=== PATIENT | male | born 1945 | race Caucasian/White ===

== ENCOUNTER 2017-02-15 00:38 | Inpatient (IN) | payer OTHER ==
[~2017-02-15] VITALS: Ht 167.6 cm; Wt 78.6 kg
[2017-02-15] VITALS (17 sets, daily range): BP systolic 122–145; BP diastolic 64–78; PULSE 68–79; RESP 17–21; TEMP 98; Ht 167.6 cm; Wt 78.6 kg
[2017-02-15] MEDS ORDERED: ASPIRIN 325 MG TAB PO STA (00:43)
[2017-02-15] MEDS ORDERED: ALBUTEROL 0.083% (NEB) 2.5 MG/3 ML AMP HHN STA (00:43)
[2017-02-15] MEDS ORDERED: IPRATROPIUM (NEB) 0.5 MG/2.5 ML AMP HHN ONE (01:00)
[2017-02-15 01:01] LABS: AADO2 Arterial 103.2 mmHg (7.0-24.0); Arterial Base Excess 6.5 mmol/L (-3.0-3); Arterial COHb 0.1 % (0.0-3.0); Arterial Fraction of Oxyhgb 87.7 % (93.0-99.0); Arterial HCO3 34.2 mmol/L (22.0-26.0); Arterial MetHb 0.3 % (0.0-1.5); MODE NASAL CANNULA
--- NOTE | 2017-02-15 01:38 | RADRPT ---
PROCEDURE: XR Chest. CLINICAL INDICATION: Shortness of breath. TECHNIQUE: Single frontal chest x-ray. COMPARISON: None. FINDINGS: Right internal jugular central venous line is present with the tip in the region of the junction of SVC and right atrium. There there is near-complete opacification of the right hemithorax with media stinal shift to the right, compatible with component of pleural effusion and atelectasis. Infiltrat e cannot be excluded. There is small layering left pleural effusion with basilar atelectasis. Ther e is no CHF. There is no pneumothorax. The osseous structures are unremarkable. IMPRESSION: 1. Near complete opacification of the right hemithorax with mediastinal shift compatible with volum e loss. Appearance is consistent with pleural fluid a and atelectasis. Component of infiltrate can not be excluded. Considerations include mucous plugging. 2. Small left pleural effusion with basilar atelectasis. 3. Right internal jugular central line with tip in the region of the SVC and right atrium. RPTAT: HMVK .Jacobo Tobias MD, Date Time Electronically viewed and signed by .Jacobo Tobias MD, on 02/15/2017 01:37 .K/
[2017-02-15] MEDS ORDERED: DEXTROSE 50% 50 ML SYRINGE ONE (01:41)
[2017-02-15 01:51] LABS: ADD SCAN DIFF NO
[2017-02-15 01:56] LABS: BASOPHILS % 0.6 % (0.0-2.0); EOSINOPHILS # 0.1 10^3/ul (0.0-0.5); EOSINOPHILS % 1.8 % (0.0-7.0); HEMATOCRIT 29.2 % (42.0-52.0); HEMOGLOBIN 8.7 g/dl (14.0-18.0); LYMPHOCYTES # 1.2 10^3/ul (0.8-2.9); LYMPHOCYTES % 22.9 % (15.0-51.0); MEAN CORPUSCULAR HEMOGLOBIN 30.1 pg (29.0-33.0); MEAN CORPUSCULAR HGB CONC 29.8 g/dl (32.0-37.0); MEAN PLATELET VOLUME 9.3 fl (7.4-10.4); MONOCYTE # 0.5 10^3/ul (0.3-0.9); MONOCYTES % 10.5 % (0.0-11.0); NEUTROPHIL # 3.2 10^3/ul (1.6-7.5); NEUTROPHILS % 62.2 % (39.0-77.0); PLATELET COUNT 236 10^3/UL (140-415); RED BLOOD COUNT 2.89 10^6/ul (4.70-6.10); RED CELL DISTRIBUTION WIDTH 14.4 % (11.5-14.5); WHITE BLOOD COUNT 5.1 10^3/ul (4.8-10.8)
[2017-02-15] MEDS ORDERED: DEXTROSE 50% 50 ML SYRINGE IV ONE ×2 (02:00→05:00)
[2017-02-15] MEDS ORDERED: METOPROLOL 5 MG INJ IV ONE (02:00)
[2017-02-15 02:15] LABS: INR 1.08; PT RATIO 1.1
[2017-02-15 02:37] LABS: ALBUMIN 2.6 g/dl (3.3-4.9)
[2017-02-15 02:38] LABS: POTASSIUM 4.1 mmol/L (3.5-5.1)
[2017-02-15 02:40] LABS: BILIRUBIN,INDIRECT 0.1 mg/dl (0-1.1); BILIRUBIN,TOTAL 0.1 mg/dl (0.2-1.3); CREATININE 1.95 mg/dl (0.61-1.24)
[2017-02-15 02:41] LABS: ALBUMIN/GLOBULIN RATIO 0.66; TOTAL PROTEIN 6.5 g/dl (6.1-8.1)
[2017-02-15 02:52] LABS: TROPONIN-I 0.021 ng/ml (0.00-0.12)
[2017-02-15] MEDS ORDERED: METHYLPREDNISOLONE 125 MG INJ IV ONE (03:00)
[2017-02-15] MEDS ORDERED: DIPHENHYDRAMINE 50 MG CAP PO ONE (04:30)
[2017-02-15] MEDS ORDERED: SOD CHLORIDE 0.9% 500 ML IV ONE (04:30)
[2017-02-15] MEDS ORDERED: ONDANSETRON 4 MG INJ IV PRN ×2 (05:00→09:30)
[2017-02-15] MEDS ORDERED: ACETAMINOPHEN 325 MG TAB PO PRN ×2 (05:00→09:30)
--- NOTE | 2017-02-15 05:02 | ERA ---
ER Documentation Chief Complaint Date/Time DATE: 02/15/17 TIME: 04:46 Chief Complaint Per EMS pt sob at facility in 88% on bipap HPI This 71-year-old male is brought in by paramedics after being found tachycardic short of breath and satting 88% on room air home. He has a history of COPD as well as A. fib with RVR. He denies any chest pain. Denies fever and chills. He is accompanied by his son. Has been feeling increasingly short of breath for a few days now. Patient is currently a poor historian and isn't really answering some questions. EVE Says she negative according to patient and to the best of son's knowledge however patient appears to be unreliable at this time. Allergies Allergies: Coded Allergies: Unknown: Unable to obtain (Unverified , 02/15/17) PMhx/Soc Medical and Surgical Hx: pt denies Surgical Hx History of Surgery: No Anesthesia Reaction: No Hx Respiratory Disorders: Yes (Resp failure) Hx Cardiac Disorders: Yes (a-fib, htn) Hx Miscellaneous Medical Probl: Yes (GI bleed, DM II, Dialysis, c-diff, CKD, heel ulcer) Hx Alcohol Use: No Hx Substance Use: No Hx Tobacco Use: No Smoking Status: Former smoker Physical Exam Vitals Vital Signs Date Time Temp Pulse Resp B/P Pulse Ox O2 Delivery O2 Flow Rate FiO2 02/15/17 03:11 98.0 89 13 104/71 97 Nasal Cannula 4.0 02/15/17 02:04 97.9 95 16 114/66 94 Nasal Cannula 4.0 02/15/17 01:14 4.0 02/15/17 01:13 110 22 94 Nasal Cannula 4.0 02/15/17 00:40 Nasal Cannula 4.0 02/15/17 00:40 Nasal Cannula 4 02/15/17 00:40 97.1 105 24 139/90 92 Physical Exam Const: [] Mild to moderate distress, tachypnea Head: Atraumatic Eyes: Normal Conjunctiva ENT: Normal External Ears, Nose and Mouth. Neck: Full range of motion..~ No meningismus. Resp: Decreased bibasilar breath sounds with rhonchorous sounds as well as expiratory wheezes., Mild tachypnea, mild accessory muscle use of abdominal muscles Cardio: Irregularly irregular tachycardia, no murmurs Abd: Soft, non tender, non distended. Normal bowel sounds Skin: No petechiae or rashes, Back: No midline or flank tenderness Ext: No cyanosis, or edema Neur: Awake and alert, knows his name, answers some questions, unable to cooperate full neurological exam currently. Result Diagram: 02/15/17 0132 02/15/17 0132 Results 24 hrs Laboratory Tests Test 02/15/17 00:43 02/15/17 01:32 02/15/17 01:39 02/15/17 02:02 Blood Gas Specimen Source Blood arterial Arterial Blood Date Drawn 02/15/2017 12:55:27 AM Arterial Blood pH (Temp corrected) 7.319 Arterial Blood pCO2 (Temp correct) 68.0mmhg Arterial Blood pO2 (Temp corrected) 52.7mmHG Arterial Blood HCO3 34.2mmol/L Arterial Blood Base Excess 6.5mmol/L Arterial Blood Oxygen Saturation 88.1mmHG Eduard Test N/A Arterial Blood Gas Puncture Site Right Brachial Arterial Blood Carboxyhemoglobin 0.1% Arterial Blood Methemoglobin 0.3% Blood Gas A-a O2 Differential 103.2mmHg Oxyhemoglobin Percent 87.7% Total Hemoglobin 10.0g/dl Blood Gas Temperature 37.0C Blood Gas Modality NASAL CANNULA FiO2 33.0% Blood Gas Critical Value Read Back Chu ROSALES DO Blood Gas Notified Whom MG Blood Gas Notified Time 02/15/2017 1:01:14 AM White Blood Count 5.110^3/ul Red Blood Count 2.8910^6/ul Hemoglobin 8.7g/dl Hematocrit 29.2% Mean Corpuscular Volume 101.0fl Mean Corpuscular Hemoglobin 30.1pg Mean Corpuscular Hemoglobin Concent 29.8g/dl Red Cell Distribution Width 14.4% Platelet Count 33473^3/UL Mean Platelet Volume 9.3fl Neutrophils % 62.2% Lymphocytes % 22.9% Monocytes % 10.5% Eosinophils % 1.8% Basophils % 0.6% Nucleated Red Blood Cells % 0.0/100WBC Neutrophils # 3.210^3/ul Lymphocytes # 1.210^3/ul Monocytes # 0.510^3/ul Eosinophils # 0.110^3/ul Basophils # 0.010^3/ul Nucleated Red Blood Cells # 0.010^3/ul Prothrombin Time 14.0Sec Prothrombin Time Ratio 1.1 INR International Normalized Ratio 1.08 Activated Partial Thromboplast Time 31.0Sec Sodium Level 139mmol/L Potassium Level 4.1mmol/L Chloride Level 98mmol/L Carbon Dioxide Level 34mmol/L Anion Gap 11 Blood Urea Nitrogen 11mg/dl Creatinine 1.95mg/dl Glucose Level 31mg/dl Calcium Level 8.0mg/dl Total Bilirubin 0.1mg/dl Direct Bilirubin 0.00mg/dl Indirect Bilirubin 0.1mg/dl Aspartate Amino Transf (AST/SGOT) 36IU/L Alanine Aminotransferase (ALT/SGPT) 35IU/L Alkaline Phosphatase 291IU/L Troponin I 0.021ng/ml B-Type Natriuretic Peptide 6080PG/ML Total Protein 6.5g/dl Albumin 2.6g/dl Globulin 3.90g/dl Albumin/Globulin Ratio 0.66 Bedside Glucose 31mg/dL 149mg/dL Test 02/15/17 03:02 02/15/17 04:02 Bedside Glucose 100mg/dL 89mg/dL Current Medications Medications (Trade) Dose Ordered Sig/Pb Route PRN Reason Start Time Stop Time Status Last Admin Dose Admin Aspirin (Aspirin) 325 mg ONCE STAT PO 02/15/17 00:43 02/15/17 00:46 DC 02/15/17 01:52 Albuterol (Proventil 0.083% (Neb)) 10 mg ONCE STAT HHN 02/15/17 00:43 02/15/17 00:46 DC 02/15/17 01:12 Ipratropium [place] (Atrovent 0.02% (Neb)) 1 mg ONCE ONCE HHN 02/15/17 01:00 02/15/17 01:01 DC 02/15/17 01:13 Dextrose (D50w Syringe) 50 ml ONCE ONCE IV 02/15/17 02:00 02/15/17 02:01 DC 02/15/17 01:44 Dextrose (D50w Syringe) 50 ml STK-MED ONCE .ROUTE 02/15/17 01:41 02/15/17 01:42 DC Metoprolol Tartrate (Lopressor) 5 mg ONCE ONCE IV 02/15/17 02:00 02/15/17 02:01 DC 02/15/17 01:58 Methylprednisolone Sodium Succinate (Solu-Medrol) 125 mg ONCE ONCE IV 02/15/17 03:00 02/15/17 03:01 DC 02/15/17 03:11 Diphenhydramine HCl 50 mg 50 mg ONCE ONCE PO 02/15/17 04:30 02/15/17 04:31 DC Sodium Chloride (NS) 500 ml @ 500 mls/hr Q1H ONCE IV 02/15/17 04:30 02/15/17 05:29 Ondansetron HCl (Zofran Inj) 4 mg ER BRIDGE PRN IV NAUSEA AND/OR VOMITING 02/15/17 05:00 02/16/17 04:59 Acetaminophen (Tylenol Tab) 650 mg ER BRIDGE PRN PO MILD PAIN/FEVER 02/15/17 05:00 02/16/17 04:59 Procedures/MDM Hypoxic respiratory distress secondary to both COPD exacerbation as well as A. fib with RVR and congestive heart failure. Patient was also suffering from hypoglycemia likely secondary to combination of insulin and sulfonylurea as patient is on glimepiride. Was given amp of D50 which raised his sugar. Sugar began to drop slightly again was given a ramp of D50. Sugar again we are performing frequent checks will starting him on a D5 infusion. Patient's mental status improved greatly and has normal neurological exam after treatment of hypoglycemia. Patient was given 5 of metoprolol for his RVR. He was given 10 and 1 nebulized breathing treatment. Blood gas shows significant low PaO2 as well as CO2 retention. Is given 125 mg of Solu-Medrol. Patient is currently rate controlled after metoprolol dose his respiratory rate is improving and he is stabilizing on 4 L of nasal cannula oxygen. CT of the lungs is pending to evaluate the right lung white out better. I spoke with who will be admitting the patient. EKG interpretation: A. fib with RVR rate of 111, left axis deviation, no ST-T wave changes concerning for acute ischemia. quality assurance monitor interpretation: Initial A. fib with RVR followed by a rate controlled A. fib without other arrhythmias Chest x-ray interpretation: Almost complete opacification of right lung, no apparent pneumothorax, unable to evaluate for pulmonary edema on the right side but does have signs of congestive heart failure on the left side, no acute fractures Critical care time 47 minutes: This includes treatment of hypoxic respiratory failure the patient was significantly hypoxemia, CO2 retention, treatment of A. fib with RVR with vasoactive medications metoprolol, consideration of invasive procedures, multiple visits to the patient's bedside to reassess status, chart review, discussion with admitting doctor and family. Does not include billable procedures Departure Diagnosis: Primary Impression: Atrial fibrillation with RVR Additional Impressions: COPD exacerbation Congestive heart failure Hypoglycemia secondary to sulfonylurea Macrocytic anemia Protein calorie malnutrition Renal insufficiency Condition: Serious CATHI ROSALES DO Feb 15, 2017 04:59
--- NOTE | 2017-02-15 06:40 | RADRPT ---
PROCEDURE: CT CHEST WITHOUT CONTRAST CLINICAL INDICATION: 71-year-old male with shortness of breath. TECHNIQUE: The study was performed utilizing a [employer] VCT 64-slice CT scanner. Direct axia l sections were obtained through the chest without the use of intravenous contrast material. Sagitt al and coronal re-formations were obtained. One or more of the following dose reduction techniques w ere utilized: automated exposure control, adjustment of the mA and/or kV according to patient's size or use of iterative reconstruction technique. The images were reviewed on a PACS workstation. CTD /vol = 14.8 mGy; Total Exam DLP = 583.6 mGy-cm. COMPARISON: Chest x-ray February 15, 2017. FINDINGS: There is a right internal jugular tunneled hemodialysis catheter with the tip in the right atrium. The aorta is mildly calcified but without aneurysmal dilatation. Mild diffuse coronary artery calcif ications are present. There are small lymph nodes seen within the mediastinum which are not patholo gic by size criteria. There is [id number] right pleural effusion extending to the lung apex wh ich may be loculated. There is collapse of the right lung with residual air bronchograms present. There is mediastinal shift to the right. There is moderate left pleural effusion with compressive a telectasis of the left lower lobe. There is no evidence for a pneumothorax. Mild degenerative cisneros es are present within the spine. Scans through the upper abdomen reveals that the upper liver is unremarkable. There is minimal free fluid surrounding the right lobe of the liver. The adrenal glands have a normal appearance. The upp er kidneys are without evidence for obstruction. IMPRESSION: 1. Right internal jugular tunneled hemodialysis catheter the tip in the right atrium. 2. [id number] right pleural effusion extending to the right lung apex which may be loculated. 3. Collapsed right lung with residual air bronchograms. 4. Mediastinal shift to the right. 5. Moderate left pleural effusion with compressive atelectasis of the left lower lobe. 6. Minimal free fluid within the right upper quadrant surrounding the liver. 7. Mild degenerative changes throughout the spine. .Rosalino Sanchez MD, MD Date Time Electronically viewed and signed by .Rosalino Sanchez MD, MD on 02/15/2017 06:40 .Alexis/
[2017-02-15] MEDS ORDERED: GLUCOSE GEL 15 GRAM TUBE BUCCAL PRN (09:30)
[2017-02-15] MEDS ORDERED: DEXTROSE 50% 50 ML SYRINGE IV PRN ×2 (09:30)
[2017-02-15] MEDS ORDERED: BISACODYL 10 MG SUPP PR PRN (09:30)
[2017-02-15] MEDS ORDERED: GLUCAGON 1 MG INJ IM PRN (09:30)
[2017-02-15] MEDS ORDERED: MAGNESIUM HYDROXIDE 30ML CUP PO PRN (09:30)
[2017-02-15] MEDS ORDERED: NACL 0.9% 3 ML SYG IV SCH (09:30)
[2017-02-15] MEDS ORDERED: DOCUSATE SODIUM 100 MG CAP PO PRN (09:30)
[2017-02-15] MEDS ORDERED: GLUCOSE GEL 15 GRAM TUBE PO PRN ×2 (09:30)
[2017-02-15] MEDS ORDERED: ALBUTEROL/IPRATROPIUM (NEB) 3 ML AMP HHN PRN ×2 (11:00→21:00)
[2017-02-15] MEDS ORDERED: VANCOMYCIN IV PER PHARMACY XX SCH (11:00)
[2017-02-15 11:12] LABS: POTASSIUM 4.7 mmol/L (3.5-5.1)
[2017-02-15 11:15] LABS: CALCIUM 8.1 mg/dl (8.4-10.2); CREATININE 2.42 mg/dl (0.61-1.24)
[2017-02-15 11:16] LABS: MAGNESIUM 1.8 mg/dl (1.7-2.5)
[2017-02-15 11:52] LABS: CREATINE KINASE < 20 IU/L (23-200)
[2017-02-15 12:00] LABS: CK-MB 1.63 ng/ml (0.0-2.4)
[2017-02-15 12:03] LABS: TROPONIN-I < 0.012 ng/ml (0.00-0.12)
[2017-02-15] MEDS ORDERED: VANCOMYCIN 1.5 GM in SOD CHLORIDE 0.9% 250 ML IVPB SCH (12:30)
[2017-02-15] MEDS: LACTOBACILLUS RHAMNOSUS CAP PO SCH ×2 (12:42→20:34)
[2017-02-15] MEDS: ALLOPURINOL 100 MG TAB PO SCH (12:42)
[2017-02-15] MEDS: ASPIRIN (EC) 81 MG TAB PO SCH (12:42)
[2017-02-15] MEDS: FINASTERIDE 5 MG TAB PO SCH (12:42)
[2017-02-15] MEDS: AMIODARONE 200 MG TAB PO SCH (12:42)
[2017-02-15] MEDS: FAMOTIDINE 20 MG TAB PO SCH (12:42)
[2017-02-15] MEDS: INSULIN ASPART [NOVOLOG] 3 ML PEN SC SCH ×3 (12:46→20:37)
--- NOTE | 2017-02-15 12:57 | HP ---
DATE OF ADMISSION: 02/15/2017 PRIMARY CARE PHYSICIAN: Unknown. CHIEF COMPLAINT ON ADMISSION: Shortness of breath. OUTPATIENT EARRINGS FABRICATOR: Tonio Solares MD HISTORY OF PRESENT ILLNESS: This is a 71-year-old male who apparently was recently discharged from [facility] 48 hours ago where he was admitted, according to the [facility] it[facility] notes for respiratory failure, did require ventilator support, also on dialysis and antibiotics for sepsis thought to be either healthcare-associated pneumonia versus vent-associated pneumonia and also reported C. difficile colitis according to the notes. The patient himself is unable to give a ny information. His at the bedside does not know anything either. They are both Colombian-speak ing primarily. The son is not at the bedside. At the [facility], he has been oxygen dependent on 4 liters nasal cannula which he is on currently. He was noted to have decreased breath sounds at the right lower lobe already there. These findings, by the way, are very similar to the current state of the patient. The patient did go to dialysis yesterday morning according to Dr. Renetta milner. He was transferred from [facility] with respiratory distress, w as found to be in atrial fibrillation with rapid ventricular rate in the emergency department. He w as given 1 dose of Lopressor. He is currently back to sinus rhythm. According to the notes, the kristina mckeon does have a history of chronic atrial fibrillation and according to his medication list he has been on amiodarone and metoprolol low dose. The patient only reports some shortness of breath and tightness. He does have a reported history of COPD based on the notes and his nebulizer treatment h as been resumed. He did receive 1 dose of steroids yesterday in the emergency department. Also, upon arrival in the emergency department, he was found to be hypoglycemic with blood sugars in the low 30. Reviewing his medication list, he is not only on insulin Lantus 20 units at bedtime, s liding scale insulin, but also still on glimepiride. His blood sugars are much more stable this mor nanette, likely due to the fact that he did get steroids last night and also was treated for the hypogl ycemia. Glimepiride is discontinued along with all insulin forms. He is only on sliding scale insu anthony. He seems to be fairly clinically stable currently and based on the notes from [facility], back to his custodial facility baseline. However, his chest x-ray in the ER showed almost whiteout of the right lung. Therefore, a CAT scan was obtained that showed mild to moderate pleural effusion with atelectasis and some shifting of the mediastinum. He has bilateral pleural ef fusions at this time. Thoracentesis is ordered. The patient seems to be fairly comfortable current ly on 4 liters. He is lying at least with the head of the bed 15 degrees up at most and in no respi ratory distress. I have resumed most of his appropriate medications from custodial facility i ncluding his antibiotic therapy. We will recheck a C. diff. There is reported Clostridium difficil e colitis, on treatment, but the patient has not been on any antibiotics for such based on the medic ation list from [facility]. ALLERGIES: NO KNOWN ALLERGIES BASED ON REPORT FROM [facility]. PAST MEDICAL HISTORY: This is again based on custodial facility report, patient is unable to give any much of a history. 1. End-stage renal disease, dialysis dependent, it is unclear for how long, but he is on Friday, We , Friday, last dialysis was yesterday Friday. 2. Diabetes mellitus, insulin requiring. 3. Hypertension. 4. Chronic atrial fibrillation, paroxysmal likely. He is currently in sinus rhythm. 5. Previous history of GI bleed, likely the reason why he is not on full anticoagulation, he is onl y on baby aspirin currently. 6. Chronic obstructive pulmonary disease. 7. Diabetic neuropathy. 8. Benign prostatic hypertrophy. 9. Hyperlipidemia. 10. Major depressive disorder versus anxiety disorder. 11. Likely healthcare-associated pneumonia. Currently, still on antibiotic therapy. 12. Gastroesophageal reflux disease. PAST SURGICAL HISTORY: Mostly unknown, based on exam the patient again has a PermCath in place for dialysis, unclear when it was placed. SOCIAL HISTORY: He is currently residing at a custodial facility. Therefore, no recent alcoh ol use, but unclear history and also unclear tobacco use history, but does have a diagnosis of COPD. REVIEW OF SYSTEMS: I am unable to obtain from patient. He only keeps repeating that he has some sh ortness of breath. OUTPATIENT MEDICATIONS: 1. Albuterol nebulizers 1 puff inhaled every 4 hours for shortness of breath or wheezing. 2. Allopurinol 100 mg p.o. daily for gout. 3. Alprazolam 0.5 mg every 6 hours as needed for anxiety. 4. Amiodarone 200 mg p.o. daily. 5. Norvasc 5 mg p.o. daily. 6. Aspirin 81 mg p.o. daily. 7. Atorvastatin 10 mg p.o. daily. 8. Atrovent nebulizers every 4 hours for shortness of breath or wheezing. 9. Bumex 1 mg p.o. daily. 10. Citalopram 10 mg p.o. daily. 11. Dulcolax as needed for constipation. 12. Fenofibrate 48 mg daily. 13. Finasteride 5 mg p.o. daily. 14. Gabapentin 100 mg p.o. 3 times a day. 15. Glimepiride 2 mg p.o. daily. 16. Lantus 20 units subcutaneously at bedtime. 17. Sliding scale insulin. 18. Lactobacillus 1 tab p.o. 3 times a day. 19. Lisinopril 20 mg p.o. daily. 20. Metoprolol 12.5 mg p.o. twice daily. 21. [place] 5/325 one tab p.o. every 6 hours as needed. 22. Protonix 40 mg p.o. daily. 23. ProMod supplement. 24. Alissa-Supriya 1 tab p.o. daily. 25. Senna 2 tablets at bedtime. 26. Vancomycin 250 mg p.o. every 6 hours. 27. Zosyn 2.25 grams IV q.12h. PHYSICAL EXAMINATION: VITAL SIGNS: Temperature is 97.5, heart rate of 71, blood pressure is 139/69. The patient is satur ating 98% on 4 liters nasal cannula. GENERAL: He is alert. He is oriented x2 to 3 at least, Colombian-speaking. He does not seem to be v vern aware of his clinical diagnosis, very poor insight and kept deferring to call his son. HEENT: Pupils are equally round and reactive to light. Extraocular muscles are intact. Anicteric sclerae. NECK: No JVD, no thyromegaly noted. HEART: Regular rate and rhythm currently. The patient has converted to sinus rhythm. LUNGS: He has decreased breath sounds right middle, right lower lobe. Some breath sounds in the ri ght upper lobe. Better breath sounds on the left, but decreased breath sounds at the base on the le ft too. He seems to be comfortable 4 liters nasal cannula. ABDOMEN: Soft, nontender, nondistended. Bowel sounds are present. EXTREMITIES: No clubbing or cyanosis. He does have +1 to trace edema. CHEST WALL: He does have a PermCath on his right upper chest wall. LABORATORY DATA: White blood cell count is 5.1, hemoglobin 8.7, hematocrit 29.2, platelet count of 236. Chemistry with a sodium of 139, potassium 4.1, chloride 98, bicarbonate 32, BUN 11, creatinine 1.95, latest glucose is 157, calcium 8.0. Total bilirubin 0.1, AST 36, ALT 35, alkaline phosphatas e of 291. Troponin 0.021. BNP of 6080. Total protein 6.5, albumin 2.6. INR is 1.08, PT 14, PTT 3 1. RADIOLOGICAL DATA: 1. He had at first a chest x-ray that showed near complete opacification of the right hemithorax wi th mediastinal shift, compatible with volume loss, apparently is consistent with a pleural effusion and atelectasis, infiltrate cannot be excluded. He had a small left pleural effusion also with bila teral atelectasis and a right internal jugular central line tip which is his PermCath at this point. 2. Following CAT scan of the chest, noncontrast, did show right pleural effusion extending to the r ight lung apex, may be loculated, collapsed right lung with residual air bronchogram, also moderate left pleural effusion. EKG on admission, atrial fibrillation with rapid ventricular rate of 111. Again, he is currently si nus rhythm at this point. ASSESSMENT AND PLAN: This is a 71-year-old male with: 1. Respiratory distress in setting of atrial fibrillation with rapid ventricular rate. Chest x-ray with finding of a right lung whiteout. CT confirming large pleural effusion with compression of th e right lobe. The patient is set up for thoracentesis today. We will send the fluid for analysis. Monitor his respiratory status. He is a dialysis patient. Dr. Solares has been contacted for volu me management. We will continue the Zosyn he has been on as an outpatient and monitor his respirato ry status. I will also continue his nebulizer treatment for now. We will add on Advair as needed. 2. Chronic obstructive pulmonary disease per report. Continue nebulizer treatments for now. He is on his usual 4 liters nasal cannula. His respiratory distress is likely secondary to the pleural e ffusion on the right side. 3. Atrial fibrillation with rapid ventricular rate. He is back to sinus rhythm. His amiodarone wi ll be resumed and will have him on carvedilol. 4. End-stage renal disease, on hemodialysis. Dr. Solares has been reconsulted. He will be followi ng the patient. 5. Hypoglycemic episode, likely due to overmedication. The patient is diabetic, but he is still on glimepiride which is not safe since he is a dialysis patient. The glimepiride is discontinued. Co ntinue insulin subcutaneously. We will resume his Lantus at appropriate dosing once he is out of hi s hypoglycemic episode for at least 24 hours. 6. Hypertension. I have put him on carvedilol for now, awaiting his echocardiogram and we will max imize beta blockers as needed. Add on JAMES inhibitors for afterload reduction later on if needed. 7. Hyperlipidemia. Check fasting lipid panel in a.m. Continue with statin therapy. 8. Diabetic neuropathy. Continue Neurontin. We will reduce to 100 mg b.i.d. since the patient is dialysis and monitor for symptoms. Hemoglobin A1c is pending. 9. Major depressive disorder, anxiety disorder. Resume citalopram and continue Xanax as needed. 10. Prophylaxis: Sequential compression devices to lower extremity for deep venous thrombosis prop hylaxis and the patient is to go back on his aspirin after thoracentesis today. GI prophylaxis with proton pump inhibitors. DISPOSITION: Right pleural effusion thoracentesis is ordered for today. Nephrology will be followi ng the patient for dialysis as needed. We will monitor his respiratory status. Dictated By: FARAZ MACHUCA/KENRICK Conf#: [id number] DID#: [id number]
[2017-02-15] MEDS: PIPER-TAZO 2.25 GM (PMX) 50 ML IVPB SCH ×2 (12:59→20:33)
[2017-02-15 13:31] LABS: THYROID STIMULATING HORMONE 2.67 MIU/L (0.465-4.680)
[2017-02-15] MEDS: ALBUTEROL/IPRATROPIUM (NEB) 3 ML AMP HHN SCH ×2 (14:25→21:38)
[2017-02-15] MEDS: VANCOMYCIN HCL 250 MG/5ML POSYG PO SCH ×3 (14:51→23:52)
--- NOTE | 2017-02-15 15:49 | CONS ---
Date/Time of Note Date/Time of Note DATE: 02/15/17 TIME: 15:49 Assessment/Plan Assessment/Plan Additional Assessment/Plan 71 yo Male with 1) SOB 2) Consolidation 3) Plerual effusion 4) ESRD 5) DM with Renal complication 6) COPD 7) Chronic Liver Disease Will order Dry UF session today for Volume overload Plan for thoracentesis today Repeat Chemistry in am Next HD if still inpatient will be Friday Cont HD MWF schedule Will cont to closely follow along with you. Thank you for the opportunity to paticipate in the care of Mr Davies. Consultation Date/Type/Reason Admit Date/Time Feb 15, 2017 at 04:37 Type of Consultation: Renal Reason for Consultation ESRD Referring Provider: FARAZ NINO Hx of Present Illness 71 yo male with ESRD on HD every MWF, last HD friday, he was transferred from [facility] with respiratory distress, was found to be in atrial fibrillation with rapid ventricular rate in the emergency department. Pt was found to have consolidation and effusion on CT imaging. Nephrology consulted for ESRD. Constitutional: requiring O2 Past Medical History Medical History: hypertension, renal disease Past Surgical History Past Surgical Hx: other (PC) Family History Significant Family History: no pertinent family hx Social History Alcohol Use: other (former) Smoking Status: Former smoker Drug Use: none Exam/Review of Systems Vital Signs Vitals Vital Signs Date Time Temp Pulse Resp B/P Pulse Ox O2 Delivery O2 Flow Rate FiO2 02/15/17 14:24 91 4.0 02/15/17 12:01 71 02/15/17 11:46 97.8 18 145/68 02/15/17 08:45 Nasal Cannula Exam Seen and examined on HD Constitutional: alert, No distress Head: atraumatic ENMT: mucosa pink and moist Respiratory: crackles/rales, diminished breath sounds, No labored breathing Cardiovascular: edema Extremities: pitting pedal edema Neurological: No confused Skin: No diaphoresis Results Result Diagram: 02/15/17 0132 02/15/17 1035 Results 24 hrs Laboratory Tests Test 02/15/17 00:43 02/15/17 01:32 02/15/17 01:39 02/15/17 02:02 Blood Gas Specimen Source Blood arterial Arterial Blood Date Drawn 02/15/2017 12:55:27 AM Arterial Blood pH (Temp corrected) 7.319 L Arterial Blood pCO2 (Temp correct) 68.0 H Arterial Blood pO2 (Temp corrected) 52.7 *L Arterial Blood HCO3 34.2 H Arterial Blood Base Excess 6.5 H Arterial Blood Oxygen Saturation 88.1 L Eduard Test N/A Arterial Blood Gas Puncture Site Right Brachial Arterial Blood Carboxyhemoglobin 0.1 Arterial Blood Methemoglobin 0.3 Blood Gas A-a O2 Differential 103.2 H Oxyhemoglobin Percent 87.7 L Total Hemoglobin 10.0 L Blood Gas Temperature 37.0 Blood Gas Modality NASAL CANNULA FiO2 33.0 Blood Gas Critical Value Read Back Chu ROSALES DO Blood Gas Notified Whom MG Blood Gas Notified Time 02/15/2017 1:01:14 AM White Blood Count 5.1 Red Blood Count 2.89 L Hemoglobin 8.7 L Hematocrit 29.2 L Mean Corpuscular Volume 101.0 Mean Corpuscular Hemoglobin 30.1 Mean Corpuscular Hemoglobin Concent 29.8 L Red Cell Distribution Width 14.4 Platelet Count 236 Mean Platelet Volume 9.3 Neutrophils % 62.2 Lymphocytes % 22.9 Monocytes % 10.5 Eosinophils % 1.8 Basophils % 0.6 Nucleated Red Blood Cells % 0.0 Neutrophils # 3.2 Lymphocytes # 1.2 Monocytes # 0.5 Eosinophils # 0.1 Basophils # 0.0 Nucleated Red Blood Cells # 0.0 Prothrombin Time 14.0 Prothrombin Time Ratio 1.1 INR International Normalized Ratio 1.08 Activated Partial Thromboplast Time 31.0 Sodium Level 139 Potassium Level 4.1 Chloride Level 98 Carbon Dioxide Level 34 H Anion Gap 11 Blood Urea Nitrogen 11 Creatinine 1.95 H Glucose Level 31 *L Calcium Level 8.0 L Total Bilirubin 0.1 L Direct Bilirubin 0.00 Indirect Bilirubin 0.1 Aspartate Amino Transf (AST/SGOT) 36 Alanine Aminotransferase (ALT/SGPT) 35 Alkaline Phosphatase 291 H Troponin I 0.021 B-Type Natriuretic Peptide 6080 H Total Protein 6.5 Albumin 2.6 L Globulin 3.90 H Albumin/Globulin Ratio 0.66 Bedside Glucose 31 *L 149 Test 02/15/17 03:02 02/15/17 04:02 02/15/17 04:57 02/15/17 05:57 Bedside Glucose 100 89 148 102 Test 02/15/17 08:03 02/15/17 10:35 02/15/17 12:25 Bedside Glucose 157 159 Sodium Level 135 Potassium Level 4.7 Chloride Level 96 L Carbon Dioxide Level 33 H Anion Gap 11 Blood Urea Nitrogen 14 Creatinine 2.42 H Glucose Level 149 # Hemoglobin A1c 7.3 H Calcium Level 8.1 L Magnesium Level 1.8 Creatine Kinase < 20 L Creatine Kinase Index Creatinine Kinase MB (Mass) 1.63 Troponin I < 0.012 Thyroid Stimulating Hormone (TSH) 2.670 Free Thyroxine 1.01 Medications Medications Current Medications Ondansetron HCl (Zofran Inj) 4 mg Q6H PRN IV NAUSEA AND/OR VOMITING; Start at 09:30 Acetaminophen (Tylenol Tab) 650 mg Q6H PRN PO PAIN LEVEL 1-3 OR FEVER; Start at 09:30 Acetaminophen/ Hydrocodone Bitart ([place] (5/325)) 1 tab Q6H PRN PO PAIN LEVEL 4 -6; Start 02/15/17 at 09:30 Docusate Sodium (Colace) 100 mg Q12H PRN PO CONSTIPATION; Start 02/15/17 at 09: 30 Magnesium Hydroxide (Milk Of Mag) 30 ml DAILY PRN PO CONSTIPATION; Start at 09:30 Bisacodyl (Dulcolax Supp) 10 mg DAILY PRN [place] CONSTIPATION; Start 02/15/17 at 09 :30 Famotidine (Pepcid) 20 mg DAILY PO Last administered on 02/15/17 12:42; Admin Dose 20 MG; Start 02/15/17 at 10:00 Carvedilol (Coreg) 6.25 mg BID PO Last administered on 02/15/17 10:38; Admin Dose 6.25 MG; Start 02/15/17 at 09:30 Miscellaneous Information 1 ea NOTE XX ; Start 02/15/17 at 09:30 Glucose (Glutose) 15 gm Q15M PRN PO DECREASED GLUCOSE; Start 02/15/17 at 09:30 Glucose (Glutose) 22.5 gm Q15M PRN PO DECREASED GLUCOSE; Start 02/15/17 at 09: 30 Dextrose (D50w Syringe) 25 ml Q15M PRN IV DECREASED GLUCOSE; Start 02/15/17 at 09:30 Dextrose (D50w Syringe) 50 ml Q15M PRN IV DECREASED GLUCOSE; Start 02/15/17 at 09:30 Glucagon (Glucagen) 1 mg Q15M PRN IM DECREASED GLUCOSE; Start 02/15/17 at 09:30 Glucose (Glutose) 15 gm Q15M PRN BUCCAL DECREASED GLUCOSE; Start 02/15/17 at 09 :30 Amiodarone HCl 200 mg 200 mg DAILY PO Last administered on 02/15/17 12:42; Admin Dose 200 MG; Start 02/15/17 at 11:00 Piperacillin Sod/ Tazobactam Sod (Zosyn 2.25gm/ 50ml (Pmx)) 50 ml @ 100 mls/hr Q12 IVPB Last administered on 02/15/17 12:59; Admin Dose 100 MLS/HR; Start at 11:00 Lactobacillus Acidophilus/ Rhamnosus (Culturelle) 1 cap BID PO Last administered on 02/15/17 12:42; Admin Dose 1 CAP; Start 02/15/17 at 12:30 Allopurinol (Zyloprim) 100 mg DAILY PO Last administered on 02/15/17 12:42; Admin Dose 100 MG; Start 02/15/17 at 11:00 Finasteride (Proscar) 5 mg DAILY PO Last administered on 02/15/17 12:42; Admin Dose 5 MG; Start 02/15/17 at 11:00 Aspirin (Halfprin) 81 mg DAILY PO Last administered on 02/15/17 12:42; Admin Dose 81 MG; Start 02/15/17 at 11:00 Vancomycin HCl (Vancomycin Oral Syringe) 250 mg Q6 PO Last administered on 02/15 14:51; Admin Dose 250 MG; Start 02/15/17 at 13:00; Stop 02/20/17 at 06:01 Procedures Procedures IMPRESSION: 1. Right internal jugular tunneled hemodialysis catheter the tip in the right atrium. 2. [id number] right pleural effusion extending to the right lung apex which may be loculated. 3. Collapsed right lung with residual air bronchograms. 4. Mediastinal shift to the right. 5. Moderate left pleural effusion with compressive atelectasis of the left lower lobe. 6. Minimal free fluid within the right upper quadrant surrounding the liver. 7. Mild degenerative changes throughout the spine. .Rosalino Sanchez MD, MD Date Time Electronically viewed and signed by .Rosalino Sanchez MD, MD on 02/15/2017 06:40 MEHDI HENSON MD Feb 15, 2017 15:49
[2017-02-15] MEDS ORDERED: METO-448 PO (16:30)
[2017-02-15] MEDS ORDERED: BISA10SU55 RC (16:30)
[2017-02-15] MEDS ORDERED: HYDR-906 PO (16:30)
[2017-02-15] MEDS ORDERED: FENO48TA4 PO (16:30)
[2017-02-15] MEDS ORDERED: CITA10SO5 GTB (16:30)
[2017-02-15] MEDS ORDERED: PANT40SU PO (16:30)
[2017-02-15] MEDS ORDERED: AMLO-145 PO (16:30)
[2017-02-15] MEDS ORDERED: GLIM2TAB PO (16:30)
[2017-02-15] MEDS ORDERED: ALLO100T PO (16:30)
[2017-02-15] MEDS ORDERED: PIPE2.257 IV (16:30)
[2017-02-15] MEDS ORDERED: LISI20TA11 PO (16:30)
[2017-02-15] MEDS ORDERED: ALPR0.5T10 PO (16:30)
[2017-02-15] MEDS ORDERED: LACT1TAB11 PO (16:30)
[2017-02-15] MEDS ORDERED: AMIO200T2 PO (16:30)
[2017-02-15] MEDS ORDERED: INSU100C SQ (16:30)
[2017-02-15] MEDS ORDERED: FINA5TAB4 PO (16:30)
[2017-02-15] MEDS ORDERED: GABA100C14 PO (16:30)
[2017-02-15] MEDS ORDERED: ALBU2.5V3 NEB (16:30)
[2017-02-15] MEDS ORDERED: VAN120L PO (16:30)
[2017-02-15] MEDS ORDERED: ATOR10TA65 PO (16:30)
[2017-02-15] MEDS ORDERED: IPRA15SP NS (16:30)
[2017-02-15] MEDS ORDERED: NEPH PO (16:30)
[2017-02-15] MEDS ORDERED: BUME1TAB18 PO (16:30)
[2017-02-15] MEDS ORDERED: LANT3I SC (16:30)
[2017-02-15] MEDS ORDERED: SENN-59 PO (16:30)
[2017-02-15] MEDS ORDERED: PROT946L PO (16:30)
[2017-02-15] MEDS ORDERED: ASPI81TA50 PO (16:30)
[2017-02-15] MEDS: HYDROCODONE/APAP (5/325) TAB PO PRN (22:00)
[2017-02-16] VITALS (12 sets, daily range): BP systolic 120–146; BP diastolic 63–68; PULSE 65–71; RESP 17–18
[2017-02-16] MEDS: VANCOMYCIN HCL 250 MG/5ML POSYG PO SCH ×4 (06:00→23:25)
[2017-02-16 07:53] LABS: ADD SCAN DIFF NO
[2017-02-16 07:54] LABS: HEMATOCRIT 26.4 % (42.0-52.0); LYMPHOCYTES # 0.8 10^3/ul (0.8-2.9); LYMPHOCYTES % 16.3 % (15.0-51.0); MEAN CORPUSCULAR HEMOGLOBIN 30.8 pg (29.0-33.0); MEAN CORPUSCULAR HGB CONC 30.3 g/dl (32.0-37.0); MEAN CORPUSCULAR VOLUME 101.5 fl (82.0-101.0); MEAN PLATELET VOLUME 9.5 fl (7.4-10.4); MONOCYTE # 0.5 10^3/ul (0.3-0.9); MONOCYTES % 9.4 % (0.0-11.0); NEUTROPHIL # 3.7 10^3/ul (1.6-7.5); NEUTROPHILS % 71.7 % (39.0-77.0); PLATELET COUNT 261 10^3/UL (140-415); RED CELL DISTRIBUTION WIDTH 14.6 % (11.5-14.5); WHITE BLOOD COUNT 5.1 10^3/ul (4.8-10.8)
[2017-02-16] MEDS: ALBUTEROL/IPRATROPIUM (NEB) 3 ML AMP HHN SCH ×4 (07:55→23:01)
[2017-02-16] MEDS: INSULIN ASPART [NOVOLOG] 3 ML PEN SC SCH ×4 (08:00→20:47)
[2017-02-16] MEDS: ALLOPURINOL 100 MG TAB PO SCH (08:08)
[2017-02-16] MEDS: ASPIRIN (EC) 81 MG TAB PO SCH (08:08)
[2017-02-16] MEDS: FAMOTIDINE 20 MG TAB PO SCH (08:08)
[2017-02-16] MEDS: LACTOBACILLUS RHAMNOSUS CAP PO SCH ×2 (08:08→20:48)
[2017-02-16] MEDS: PIPER-TAZO 2.25 GM (PMX) 50 ML IVPB SCH ×2 (08:08→20:49)
[2017-02-16] MEDS: FINASTERIDE 5 MG TAB PO SCH (08:08)
[2017-02-16] MEDS: AMIODARONE 200 MG TAB PO SCH (08:09)
[2017-02-16 08:15] LABS: ALBUMIN 2.5 g/dl (3.3-4.9)
[2017-02-16 08:16] LABS: POTASSIUM 3.7 mmol/L (3.5-5.1)
[2017-02-16 08:17] LABS: CREATININE 2.57 mg/dl (0.61-1.24)
[2017-02-16 08:18] LABS: ALBUMIN/GLOBULIN RATIO 0.65; CALCIUM 8.2 mg/dl (8.4-10.2); TOTAL PROTEIN 6.3 g/dl (6.1-8.1)
[2017-02-16 08:19] LABS: MAGNESIUM 2.1 mg/dl (1.7-2.5)
--- NOTE | 2017-02-16 09:38 | CONS ---
Date/Time of Note Date/Time of Note DATE: 02/16/17 TIME: 09:37 Assessment/Plan Assessment/Plan Additional Assessment/Plan 71 yo Male with 1) SOB 2) Consolidation 3) Plerual effusion 4) ESRD 5) DM with Renal complication 6) COPD 7) Chronic Liver Disease Possible Plan for thoracentesis today Repeat Chemistry in am Next HD will be Friday Cont HD MWF schedule Will cont to closely follow along with you. Thank you for the opportunity to paticipate in the care of Mr Davies. Consultation Date/Type/Reason Admit Date/Time Feb 15, 2017 at 04:37 Initial Consult Date Type of Consultation: Renal Referring Provider: FARAZ NINO 24 HR Interval Summary Constitutional: requiring O2 Exam/Review of Systems Vital Signs Vitals Vital Signs Date Time Temp Pulse Resp B/P Pulse Ox O2 Delivery O2 Flow Rate FiO2 02/16/17 08:19 65 02/16/17 07:56 2.0 02/16/17 07:55 17 94 Nasal Cannula 02/16/17 07:43 97.8 142/66 Intake and Output 02/15/17 02/15/17 02/16/17 15:00 23:00 07:00 Intake Total 1290 ml 80 ml Output Total 4500 ml Balance -3210 ml 80 ml Exam Constitutional: No distress ENMT: mucosa pink and moist Respiratory: crackles/rales, No diminished breath sounds, No labored breathing Cardiovascular: edema, regular rate and rhythm Gastrointestinal: non-tender, soft Results Result Diagram: 02/16/17 0615 02/16/17 0615 Results 24 hrs Laboratory Tests Test 02/15/17 10:35 02/15/17 12:25 02/15/17 17:17 02/15/17 20:32 Sodium Level 135 Potassium Level 4.7 Chloride Level 96 L Carbon Dioxide Level 33 H Anion Gap 11 Blood Urea Nitrogen 14 Creatinine 2.42 H Glucose Level 149 # Hemoglobin A1c 7.3 H Calcium Level 8.1 L Magnesium Level 1.8 Creatine Kinase < 20 L Creatine Kinase Index Creatinine Kinase MB (Mass) 1.63 Troponin I < 0.012 Thyroid Stimulating Hormone (TSH) 2.670 Free Thyroxine 1.01 Bedside Glucose 159 208 207 Test 02/16/17 02:12 02/16/17 06:15 02/16/17 07:45 Bedside Glucose 145 126 White Blood Count 5.1 Red Blood Count 2.60 L Hemoglobin 8.0 L Hematocrit 26.4 L Mean Corpuscular Volume 101.5 H Mean Corpuscular Hemoglobin 30.8 Mean Corpuscular Hemoglobin Concent 30.3 L Red Cell Distribution Width 14.6 H Platelet Count 261 Mean Platelet Volume 9.5 Neutrophils % 71.7 Lymphocytes % 16.3 Monocytes % 9.4 Eosinophils % 0.0 Basophils % 0.0 Nucleated Red Blood Cells % 0.0 Neutrophils # 3.7 Lymphocytes # 0.8 Monocytes # 0.5 Eosinophils # 0.0 Basophils # 0.0 Nucleated Red Blood Cells # 0.0 Sodium Level 139 Potassium Level 3.7 Chloride Level 101 Carbon Dioxide Level 31 Anion Gap 11 Blood Urea Nitrogen 19 Creatinine 2.57 H Glucose Level 129 Calcium Level 8.2 L Magnesium Level 2.1 Total Bilirubin 0.0 L Direct Bilirubin 0.00 Indirect Bilirubin 0.0 Aspartate Amino Transf (AST/SGOT) 23 Alanine Aminotransferase (ALT/SGPT) 25 Alkaline Phosphatase 227 H Total Protein 6.3 Albumin 2.5 L Globulin 3.80 H Albumin/Globulin Ratio 0.65 Medications Medications Current Medications Ondansetron HCl (Zofran Inj) 4 mg Q6H PRN IV NAUSEA AND/OR VOMITING Last administered on 02/16/17 08:31; Admin Dose 4 MG; Start 02/15/17 at 09:30 Acetaminophen (Tylenol Tab) 650 mg Q6H PRN PO PAIN LEVEL 1-3 OR FEVER; Start at 09:30 Acetaminophen/ Hydrocodone Bitart ([place] (5/325)) 1 tab Q6H PRN PO PAIN LEVEL 4 -6 Last administered on 02/15/17 22:00; Admin Dose 1 TAB; Start 02/15/17 at 09: 30 Docusate Sodium (Colace) 100 mg Q12H PRN PO CONSTIPATION; Start 02/15/17 at 09: 30 Magnesium Hydroxide (Milk Of Mag) 30 ml DAILY PRN PO CONSTIPATION; Start at 09:30 Bisacodyl (Dulcolax Supp) 10 mg DAILY PRN [place] CONSTIPATION; Start 02/15/17 at 09 :30 Famotidine (Pepcid) 20 mg DAILY PO Last administered on 02/16/17 08:08; Admin Dose 20 MG; Start 02/15/17 at 10:00 Carvedilol (Coreg) 6.25 mg BID PO Last administered on 02/16/17 08:09; Admin Dose 6.25 MG; Start 02/15/17 at 09:30 Miscellaneous Information 1 ea NOTE XX ; Start 02/15/17 at 09:30 Glucose (Glutose) 15 gm Q15M PRN PO DECREASED GLUCOSE; Start 02/15/17 at 09:30 Glucose (Glutose) 22.5 gm Q15M PRN PO DECREASED GLUCOSE; Start 02/15/17 at 09: 30 Dextrose (D50w Syringe) 25 ml Q15M PRN IV DECREASED GLUCOSE; Start 02/15/17 at 09:30 Dextrose (D50w Syringe) 50 ml Q15M PRN IV DECREASED GLUCOSE; Start 02/15/17 at 09:30 Glucagon (Glucagen) 1 mg Q15M PRN IM DECREASED GLUCOSE; Start 02/15/17 at 09:30 Glucose (Glutose) 15 gm Q15M PRN BUCCAL DECREASED GLUCOSE; Start 02/15/17 at 09 :30 Amiodarone HCl 200 mg 200 mg DAILY PO Last administered on 02/16/17 08:09; Admin Dose 200 MG; Start 02/15/17 at 11:00 Piperacillin Sod/ Tazobactam Sod (Zosyn 2.25gm/ 50ml (Pmx)) 50 ml @ 100 mls/hr Q12 IVPB Last administered on 02/16/17 08:08; Admin Dose 100 MLS/HR; Start at 11:00 Lactobacillus Acidophilus/ Rhamnosus (Culturelle) 1 cap BID PO Last administered on 02/16/17 08:08; Admin Dose 1 CAP; Start 02/15/17 at 12:30 Allopurinol (Zyloprim) 100 mg DAILY PO Last administered on 02/16/17 08:08; Admin Dose 100 MG; Start 02/15/17 at 11:00 Finasteride (Proscar) 5 mg DAILY PO Last administered on 02/16/17 08:08; Admin Dose 5 MG; Start 02/15/17 at 11:00 Aspirin (Halfprin) 81 mg DAILY PO Last administered on 02/16/17 08:08; Admin Dose 81 MG; Start 02/15/17 at 11:00 Vancomycin HCl (Vancomycin Oral Syringe) 250 mg Q6 PO Last administered on 02/16t 06:00; Admin Dose 250 MG; Start 02/15/17 at 13:00; Stop 02/20/17 at 06:01 Salmeterol Xinafoate/ Fluticasone (Advair 250/50 Diskus) 1 inh BID INH ; Start 02/16/17 at 09:30 MEHDI HENSON MD Feb 16, 2017 09:37
[2017-02-16] MEDS: SALMETEROL/FLUTICASONE 250/50 INHA INH SCH ×3 (10:12→20:49)
--- NOTE | 2017-02-16 11:54 | PN ---
Date/Time of Note Date/Time of Note DATE: 02/16/17 TIME: 11:26 Assessment/Plan VTE Prophylaxis VTE Prophylaxis Intervention: SCD's Lines/Catheters IV Catheter Type (from Nrs): Saline Lock Urinary Cath still in place: No Assessment/Plan Assessment/Plan 71-year-old male with: 1. Acute on chronic respiratory insufficiency and hypoxemia, back in SR and awaiting right thoracentesis Chest x-ray with finding of a right lung whiteout. CT confirming large pleural effusion with compression of the right lobe. Continue nebs and Advair added Monitor his respiratory status. HD tomorrow planned Continue the Zosyn. 2. Chronic obstructive pulmonary disease, likely to be O2 dependent. Continue nebulizer treatments and Advair added His respiratory distress is likely secondary to the pleural effusion on the right side, right thoracentesis pending. 3. Atrial fibrillation with rapid ventricular rate. Back to sinus rhythm. Continue amiodarone and carvedilol for now 2D echo done and results pending 4. End-stage renal disease, on hemodialysis. HD tomorrow as per outpatient schedule, will resume Bumex for now Dr. Solares following 5. Hypoglycemic episode, likely due to overmedication. BG stable now. A1c 7.3 and normoglycemic Resume Lantus when BG back up 6. Hypertension. Continue carvedilol, f/u 2D echocardiogram. Add on JAMES inhibitors for afterload reduction later on if needed. 7. Hyperlipidemia. Continue with statin, check fasting lipid panel with AM labs tomorrow. 8. Diabetic neuropathy. Continue Neurontin, down to 100 mg b.i.d. 9. Major depressive disorder, anxiety disorder. Resume citalopram and continue Xanax as needed. 10. Chronic Anemia, of chronic disease. Stable Hb so far Hopefully getting epo with HD and will resume Renavite Prophylaxis: Sequential compression devices to lower extremity for deep venous thrombosis prophylaxis, ASA. GI prophylaxis with proton pump inhibitors. DISPOSITION: Right pleural effusion thoracentesis pending today. Nex HD tomorrow Monitor respiratory status. Subjective 24 Hr Interval Summary Free Text/Dictation Patient with episode of respiratory distress overnight but was down to 2L NC this AM, again with respiratory distress, stabilized with O2 sats of 5 L NC currently and awaiting right thoracentesis Afebrile WBC OK HD planned for tomorrow Exam/Review of Systems Vital Signs Vitals Vital Signs Date Time Temp Pulse Resp B/P Pulse Ox O2 Delivery O2 Flow Rate FiO2 02/16/17 08:19 65 02/16/17 08:10 Nasal Cannula 6.0 02/16/17 07:55 17 94 02/16/17 07:43 97.8 142/66 Intake and Output 02/15/17 02/15/17 02/16/17 15:00 23:00 07:00 Intake Total 1290 ml 80 ml Output Total 4500 ml Balance -3210 ml 80 ml Exam Constitutional: alert, oriented, well developed Respiratory: diminished breath sounds (right lung all the way to apex ), normal air movement Cardiovascular: nl pulses, regular rate and rhythm (back to SR ) Gastrointestinal: non-tender, soft Musculoskeletal: nl extremities to inspection Extremities: normal pulses, other (no edema, clubbing or cyanosis ) Neurological: PROCESS STEWARD II-XII intact, nl mental status, nl speech, other ( generalised weakness ) Results Result Diagram: 02/16/1715 02/16/1715 Results 24 hrs Laboratory Tests Test 02/15/17 12:25 02/15/17 17:17 02/15/17 20:32 02/16/17 02:12 Bedside Glucose 159 208 207 145 Test 02/16/17 06:15 02/16/17 07:45 White Blood Count 5.1 Red Blood Count 2.60 L Hemoglobin 8.0 L Hematocrit 26.4 L Mean Corpuscular Volume 101.5 H Mean Corpuscular Hemoglobin 30.8 Mean Corpuscular Hemoglobin Concent 30.3 L Red Cell Distribution Width 14.6 H Platelet Count 261 Mean Platelet Volume 9.5 Neutrophils % 71.7 Lymphocytes % 16.3 Monocytes % 9.4 Eosinophils % 0.0 Basophils % 0.0 Nucleated Red Blood Cells % 0.0 Neutrophils # 3.7 Lymphocytes # 0.8 Monocytes # 0.5 Eosinophils # 0.0 Basophils # 0.0 Nucleated Red Blood Cells # 0.0 Sodium Level 139 Potassium Level 3.7 Chloride Level 101 Carbon Dioxide Level 31 Anion Gap 11 Blood Urea Nitrogen 19 Creatinine 2.57 H Glucose Level 129 Calcium Level 8.2 L Magnesium Level 2.1 Total Bilirubin 0.0 L Direct Bilirubin 0.00 Indirect Bilirubin 0.0 Aspartate Amino Transf (AST/SGOT) 23 Alanine Aminotransferase (ALT/SGPT) 25 Alkaline Phosphatase 227 H Total Protein 6.3 Albumin 2.5 L Globulin 3.80 H Albumin/Globulin Ratio 0.65 Bedside Glucose 126 Medications Medications Current Medications Ondansetron HCl (Zofran Inj) 4 mg Q6H PRN IV NAUSEA AND/OR VOMITING Last administered on 02/16/17 08:31; Admin Dose 4 MG; Start 02/15/17 at 09:30 Acetaminophen (Tylenol Tab) 650 mg Q6H PRN PO PAIN LEVEL 1-3 OR FEVER; Start at 09:30 Acetaminophen/ Hydrocodone Bitart ([place] (5/325)) 1 tab Q6H PRN PO PAIN LEVEL 4 -6 Last administered on 02/15/17 22:00; Admin Dose 1 TAB; Start 02/15/17 at 09: 30 Docusate Sodium (Colace) 100 mg Q12H PRN PO CONSTIPATION; Start 02/15/17 at 09: 30 Magnesium Hydroxide (Milk Of Mag) 30 ml DAILY PRN PO CONSTIPATION; Start at 09:30 Bisacodyl (Dulcolax Supp) 10 mg DAILY PRN [place] CONSTIPATION; Start 02/15/17 at 09 :30 Famotidine (Pepcid) 20 mg DAILY PO Last administered on 02/16/17 08:08; Admin Dose 20 MG; Start 02/15/17 at 10:00 Carvedilol (Coreg) 6.25 mg BID PO Last administered on 02/16/17 08:09; Admin Dose 6.25 MG; Start 02/15/17 at 09:30 Miscellaneous Information 1 ea NOTE XX ; Start 02/15/17 at 09:30 Glucose (Glutose) 15 gm Q15M PRN PO DECREASED GLUCOSE; Start 02/15/17 at 09:30 Glucose (Glutose) 22.5 gm Q15M PRN PO DECREASED GLUCOSE; Start 02/15/17 at 09: 30 Dextrose (D50w Syringe) 25 ml Q15M PRN IV DECREASED GLUCOSE; Start 02/15/17 at 09:30 Dextrose (D50w Syringe) 50 ml Q15M PRN IV DECREASED GLUCOSE; Start 02/15/17 at 09:30 Glucagon (Glucagen) 1 mg Q15M PRN IM DECREASED GLUCOSE; Start 02/15/17 at 09:30 Glucose (Glutose) 15 gm Q15M PRN BUCCAL DECREASED GLUCOSE; Start 02/15/17 at 09 :30 Amiodarone HCl 200 mg 200 mg DAILY PO Last administered on 02/16/17 08:09; Admin Dose 200 MG; Start 02/15/17 at 11:00 Piperacillin Sod/ Tazobactam Sod (Zosyn 2.25gm/ 50ml (Pmx)) 50 ml @ 100 mls/hr Q12 IVPB Last administered on 02/16/17 08:08; Admin Dose 100 MLS/HR; Start at 11:00 Lactobacillus Acidophilus/ Rhamnosus (Culturelle) 1 cap BID PO Last administered on 02/16/17 08:08; Admin Dose 1 CAP; Start 02/15/17 at 12:30 Allopurinol (Zyloprim) 100 mg DAILY PO Last administered on 02/16/17 08:08; Admin Dose 100 MG; Start 02/15/17 at 11:00 Finasteride (Proscar) 5 mg DAILY PO Last administered on 02/16/17 08:08; Admin Dose 5 MG; Start 02/15/17 at 11:00 Aspirin (Halfprin) 81 mg DAILY PO Last administered on 02/16/17 08:08; Admin Dose 81 MG; Start 02/15/17 at 11:00 Vancomycin HCl (Vancomycin Oral Syringe) 250 mg Q6 PO Last administered on 02/16 06:00; Admin Dose 250 MG; Start 02/15/17 at 13:00; Stop 02/20/17 at 06:01 Salmeterol Xinafoate/ Fluticasone (Advair 250/50 Diskus) 1 inh BID INH ; Start 02/16/17 at 09:30 FARAZ NINO Feb 16, 2017 11:36
[2017-02-16] MEDS: FENOFIBRATE 48 MG TAB PO SCH (12:00)
[2017-02-16] MEDS: MULTIVIT/CA CARB/B CMPLX/FA TAB PO SCH (12:02)
[2017-02-16] MEDS: BUMETANIDE 1 MG TAB PO SCH (14:32)
[2017-02-16] MEDS: ALPRAZOLAM 0.25 MG TAB PO PRN ×2 (15:14→23:22)
--- NOTE | 2017-02-16 16:43 | RADRPT ---
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 Physician: JOANNE NINO Quality: Adequate Procedures: Transthoracic echocardiogram with complete 2D, M-Mode, and doppler examination. Indications: Evaluate Left Ventricular function. 2D/M Mode Doppler Measurement Value Normal Ranges Measurement Value Normal Ranges LVIDd 2D 4.5 3.5 - 5.6 cm AV Peak [place] 1.2 m/sec LVIDs 2D 3.3 2.1 - 4.1 cm AV Peak PG 5.9 mmHg LVPWd 2D 1.1 0.6 - 1.1 cm LVOT Peak [place] 0.7 m/sec IVSd 2D 1.1 0.6 - 1.1 cm LVOT Peak PG 2.1 mmHg AoR Diam 2D 2.2 2.0 - 3.7 cm MV E Peak [place] 1.0 m/sec EDV 2D 90.7 cm3 MV A Peak [place] 0.9 m/sec ESV 2D 34.5 cm3 MV E/A 1.1 MV Decel Time 134 msec MV Decel [place] 8 MV E/A 1.1 TR Peak Avila 2.6 m/sec TR Peak PG 27.7 mmHg Findings Left Ventricle: Normal left ventricular systolic function. Normal left ventricular cavity size. Left ventricular wall thickness upper limits of normal. Ejection fraction is visually estimated at 60 %. Tissue Doppler/Mitral Doppler indices are consistent with impaired relaxation (Stage I diastolic dysfunction). Right Ventricle: Normal right ventricular size. Normal right ventricular systolic function. Left Atrium: The left atrium is normal in size. Right Atrium: The right atrium is normal in size. RA Pressure=8. Mitral Valve: Mitral valve leaflets appear mildly thickened. Trace mitral regurgitation. Aortic Valve: Normal appearance of the aortic valve. No significant aortic stenosis or insufficiency. Tricuspid Valve: Tricuspid valve not well visualized. Estimated peak PA systolic pressure 36 mmHg. There is mild tricuspid regurgitation. Pulmonic Valve: There is trace pulmonic regurgitation. Pericardium: Left pleural effusion seen. Aorta: Normal aortic root. IVC: Normal size and no respiratory collapse consistent with elevated right atrial pressure. Conclusions 1.Normal left ventricular systolic function. Normal left ventricular cavity size. Left ventricular wall thickness upper limits of normal. Ejection fraction is visually estimated at 60 %. Tissue Doppler/Mitral Doppler indices are consistent with impaired relaxation (Stage I diastolic dysfunction). 2.Normal right ventricular size. Normal right ventricular systolic function. 3.The left atrium is normal in size. 4.The right atrium is normal in size. RA Pressure=8. 5.Tricuspid valve not well visualized. Estimated peak PA systolic pressure 36 mmHg. There is mild tricuspid regurgitation. 6.No significant valvular stenosis or regurgitation seen of remaining visualized valves. 7.Left pleural effusion seen. Electronically Signed By: Jacobo Dodson 16-Feb-2017 16:43:28 -0700 Patient Name: ROSALINDA XAVIER Study Date: 15-Feb-2017 [id number]
[2017-02-16] MEDS ORDERED: LIDOCAINE 1% (MPF) 5 ML VIAL ONE (18:06)
--- NOTE | 2017-02-16 18:34 | RADRPT ---
PROCEDURE: XR Chest. CLINICAL INDICATION: Shortness of breath. status post thoracentesis. TECHNIQUE: AP Portable chest. COMPARISON: 02/15/2017 FINDINGS: Interval improved aeration of the right lung with persistent hazy opacities in the mid lower lung fi elds likely representing combination of pleural effusions and airspace disease. right IJ tunnel herbert lysis catheter remains in place. There is cardiomegaly. There is aortic atherosclerosis. IMPRESSION: 1. Improved aeration of the right lung. No pneumothorax. 2. Persistent hazy opacities in the mid lower lung [place] likely representing combination of pleural effusions and airspace disease. 3. Right IJ tunnel dialysis catheter with tip in the right atrium. RPTAT: QQ .Eda Madison MD, MD Date Time Electronically viewed and signed by .Eda Madison MD, on 02/16/2017 18:34 .O/
--- NOTE | 2017-02-16 19:10 | RADRPT ---
PROCEDURE: US guided right thoracentesis. CLINICAL INDICATION: Shortness of breath. Right pleural effusion. TECHNIQUE: Prior to the procedure, informed consent was obtained. The risks, benefits, and alternatives were e xplained to the patient, including but not limited to bleeding, infection, pain, vascular damage, sh ock, pneumothorax, chest tube placement. The patient understood the risks and the alternatives and w ished to proceed with the study. Informed written consent was obtained. A procedural pause was performed. The patient's name, date of , and procedure to be performed were verified. Ultrasound of the right hemithorax was performed in the axial and sagittal planes. There is small vo lume septated right pleural effusion noted. Utilizing ultrasound guidance, optimal location for entr y to the pleural cavity was ascertained. The overlying skin was prepped and draped in the usual parris rile fashion. Approximately 10 ml of 1% Xylocaine was injected locally for pain control. Using ult rasound guidance, a 5-Tuval[place] Yueh catheter was introduced into the right pleural space without diffi culty. Fluid was aspirated. COMPARISON: None. FINDINGS: Initial ultrasound demonstrates fluid in the right pleural space. Approximately 40 cc of serous flu id was aspirated and sent to the laboratory. IMPRESSION: Satisfactory ultrasound-guided right thoracentesis. Small-volume septated right pleural effusion. RPTAT: QQ .Eda Madison MD, Date Time Electronically viewed and signed by .Eda Madison MD, on 02/16/2017 19:10 .O/
[2017-02-16 19:32] LABS: FLUID TYPE THORACENTESIS FLUID
[2017-02-16 19:33] LABS: FLUID GLUCOSE 105 mg/dl; FLUID TOTAL PROTEIN 2.2 g/dl; FLUID TYPE THORACENTESIS FLUID
[2017-02-16 20:45] LABS: FLUID APPEARANCE SLIGHTLY CLOUDY; FLUID TYPE THORACENTHESIS
[2017-02-16] MEDS: ATORVASTATIN 10 MG TAB PO SCH (20:48)
[2017-02-16 20:49] LABS: FLUID EOSINOPHIL 0 %; FLUID LYMPHOCYTES 4 %; FLUID MONOCYTES 3 %; FLUID NEUTROPHILS 93 %; FLUID RBC EST 0; FLUID WBC'S 341 /cmm
[2017-02-17] VITALS (21 sets, daily range): BP systolic 102–131; BP diastolic 53–65; PULSE 49–66; RESP 18–21
[2017-02-17] MEDS ORDERED: VANCOMYCIN 1.25 GM in SOD CHLORIDE 0.9% 250 ML IVPB SCH ×2
[2017-02-17] MEDS: VANCOMYCIN HCL 250 MG/5ML POSYG PO SCH ×3 (05:48→17:38)
[2017-02-17] MEDS: ALBUTEROL/IPRATROPIUM (NEB) 3 ML AMP HHN SCH ×2 (07:18→16:00)
[2017-02-17] MEDS: INSULIN ASPART [NOVOLOG] 3 ML PEN SC SCH ×4 (08:00→20:26)
[2017-02-17 08:25] LABS: ADD SCAN DIFF NO
[2017-02-17] MEDS: BUMETANIDE 1 MG TAB PO SCH (08:28)
[2017-02-17] MEDS: FAMOTIDINE 20 MG TAB PO SCH (08:29)
[2017-02-17] MEDS: CITALOPRAM 20 MG TAB PO SCH (08:29)
[2017-02-17] MEDS: FENOFIBRATE 48 MG TAB PO SCH (08:29)
[2017-02-17] MEDS: MULTIVIT/CA CARB/B CMPLX/FA TAB PO SCH (08:29)
[2017-02-17] MEDS: LACTOBACILLUS RHAMNOSUS CAP PO SCH ×2 (08:30→20:06)
[2017-02-17] MEDS: LISINOPRIL 20 MG TAB PO SCH (08:30)
[2017-02-17] MEDS: FINASTERIDE 5 MG TAB PO SCH (08:30)
[2017-02-17] MEDS: ALLOPURINOL 100 MG TAB PO SCH (08:30)
[2017-02-17] MEDS: ASPIRIN (EC) 81 MG TAB PO SCH (08:30)
[2017-02-17] MEDS: AMIODARONE 200 MG TAB PO SCH (08:30)
[2017-02-17] MEDS: SALMETEROL/FLUTICASONE 250/50 INHA INH SCH ×2 (08:31→20:06)
[2017-02-17] MEDS: PIPER-TAZO 2.25 GM (PMX) 50 ML IVPB SCH ×2 (08:31→20:17)
[2017-02-17 08:59] LABS: CALCIUM 8.2 mg/dl (8.4-10.2); CREATININE 3.65 mg/dl (0.61-1.24); POTASSIUM 4.2 mmol/L (3.5-5.1)
[2017-02-17 09:42] LABS: MAGNESIUM 2.1 mg/dl (1.7-2.5); PHOSPHORUS 4.7 mg/dl (2.5-4.9)
--- NOTE | 2017-02-17 10:20 | PN ---
Date/Time of Note Date/Time of Note DATE: 02/17/17 TIME: 10:12 Assessment/Plan VTE Prophylaxis VTE Prophylaxis Intervention: SCD's Lines/Catheters IV Catheter Type (from Nrs): Kalin Urinary Cath still in place: No Assessment/Plan Assessment/Plan 71-year-old male with: 1. Acute on chronic respiratory insufficiency and hypoxemia, back in SR and s/ p right thoracentesis with findings of septated small pleural effusion and 40 cc serous fluid sent to lab on 4 L NC Continue nebs and Advair. Continue IV abx, Zosyn Monitor respiratory status HD today. 2. Chronic obstructive pulmonary disease, likely to be O2 dependent. Continue nebulizer treatments and Advair S/p right thoracentesis. 3. Atrial fibrillation with rapid ventricular rate. Back to sinus rhythm. Continue amiodarone and back to outpatient Metoprolol as tolerated. 2D echo done and EF 60% 4. End-stage renal disease, on hemodialysis. HD today as per outpatient schedule, Back on Bumex for now Dr. Solares following 5. Hypoglycemic episode, likely due to overmedication. BG stable now. A1c 7.3 and normoglycemic for now Resume Lantus when BG back up 6. Hypertension. Back on Metoprolol, 2D echocardiogram with EF 60% Add on JAMES inhibitors for afterload reduction later on if needed. 7. Hyperlipidemia. Continue with statin, check fasting lipid panel with AM labs tomorrow. 8. Diabetic neuropathy. Continue Neurontin, down to 100 mg b.i.d. 9. Major depressive disorder, anxiety disorder. Resume citalopram and continue Xanax as needed. 10. Chronic Anemia, of chronic disease. Stable Hb so far. CBC pending this AM Hopefully getting epo with HD and will resume Renavite Prophylaxis: Sequential compression devices to lower extremity for deep venous thrombosis prophylaxis, ASA. GI prophylaxis with proton pump inhibitors. DISPOSITION: HD today and d/c plan back to SNF in AM if remains stable. Son at bedside update of results, fair overall prognosis and discharge planning. Patient remains Full Code. Monitor respiratory status. Subjective 24 Hr Interval Summary Free Text/Dictation Patient feels a little better and tolerating 4L NC with sats 98% CBC pending HD today on Bumex Exam/Review of Systems Vital Signs Vitals Vital Signs Date Time Temp Pulse Resp B/P Pulse Ox O2 Delivery O2 Flow Rate FiO2 02/17/17 08:30 59 02/17/17 07:47 97.4 20 117/59 98 02/17/17 07:19 5.0 02/16/17 23:02 Nasal Cannula Intake and Output 02/16/17 02/16/17 02/17/17 15:00 23:00 07:00 Intake Total 730 ml 80 ml Balance 730 ml 80 ml Exam Constitutional: alert, frail, oriented Respiratory: diminished breath sounds (RLL/RML), normal air movement, other ( no wheezing ) Cardiovascular: nl pulses, regular rate and rhythm Gastrointestinal: non-tender, soft Musculoskeletal: nl extremities to inspection Extremities: normal pulses, other (no edema, clubbing or cyanosis ) Neurological: CLERICAL AIDE II-XII intact, nl mental status, nl speech, other ( generalised weakness ) Results Result Diagram: 02/16/17 0615 02/17/17 0625 Results 24 hrs Laboratory Tests Test 02/16/17 11:42 02/16/17 17:30 02/16/17 18:42 02/16/17 20:32 Bedside Glucose 174 162 165 Body Fluid Type THORACENTESIS FLUID Body Fluid Volume 18.0 Body Fluid Color YELLOW Body Fluid Appearance SLIGHTLY CLOUDY Body Fluid WBC 341 Body Fluid RBC 0 Body Fluid Neutrophils % 93 Body Fluid Lymphocytes (%) 4 Body Fluid Monocytes % 3 Body Fluid Eosinophils % 0 Body Fluid Basophils % Body Fluid Glucose 105 Body Fluid Total Protein 2.2 Body Fluid Lactate Dehydrogenase Test 02/16/17 20:46 02/17/17 06:25 02/17/17 07:31 Bedside Glucose 167 94 Sodium Level 135 Potassium Level 4.2 Chloride Level 104 Carbon Dioxide Level 27 Anion Gap 8 Blood Urea Nitrogen 34 #H Creatinine 3.65 #H Glucose Level 83 # Calcium Level 8.2 L Phosphorus Level 4.7 Magnesium Level 2.1 Medications Medications Current Medications Ondansetron HCl (Zofran Inj) 4 mg Q6H PRN IV NAUSEA AND/OR VOMITING Last administered on 02/16/17t 08:31; Admin Dose 4 MG; Start 02/15/17 at 09:30 Acetaminophen (Tylenol Tab) 650 mg Q6H PRN PO PAIN LEVEL 1-3 OR FEVER; Start at 09:30 Acetaminophen/ Hydrocodone Bitart ([place] (5/325)) 1 tab Q6H PRN PO PAIN LEVEL 4 -6 Last administered on 02/15/17 22:00; Admin Dose 1 TAB; Start 02/15/17 at 09: 30 Docusate Sodium (Colace) 100 mg Q12H PRN PO CONSTIPATION; Start 02/15/17 at 09: 30 Magnesium Hydroxide (Milk Of Mag) 30 ml DAILY PRN PO CONSTIPATION; Start at 09:30 Bisacodyl (Dulcolax Supp) 10 mg DAILY PRN [place] CONSTIPATION; Start 02/15/17 at 09 :30 Famotidine (Pepcid) 20 mg DAILY PO Last administered on 02/17/17 08:29; Admin Dose 20 MG; Start 02/15/17 at 10:00 Carvedilol (Coreg) 6.25 mg BID PO Last administered on 02/17/17 08:30; Admin Dose 6.25 MG; Start 02/15/17 at 09:30 Miscellaneous Information 1 ea NOTE XX ; Start 02/15/17 at 09:30 Glucose (Glutose) 15 gm Q15M PRN PO DECREASED GLUCOSE; Start 02/15/17 at 09:30 Glucose (Glutose) 22.5 gm Q15M PRN PO DECREASED GLUCOSE; Start 02/15/17 at 09: 30 Dextrose (D50w Syringe) 25 ml Q15M PRN IV DECREASED GLUCOSE; Start 02/15/17 at 09:30 Dextrose (D50w Syringe) 50 ml Q15M PRN IV DECREASED GLUCOSE; Start 02/15/17 at 09:30 Glucagon (Glucagen) 1 mg Q15M PRN IM DECREASED GLUCOSE; Start 02/15/17 at 09:30 Glucose (Glutose) 15 gm Q15M PRN BUCCAL DECREASED GLUCOSE; Start 02/15/17 at 09 :30 Amiodarone HCl 200 mg 200 mg DAILY PO Last administered on 02/17/17 08:30; Admin Dose 200 MG; Start 02/15/17 at 11:00 Piperacillin Sod/ Tazobactam Sod (Zosyn 2.25gm/ 50ml (Pmx)) 50 ml @ 100 mls/hr Q12 IVPB Last administered on 02/17/17 08:31; Admin Dose 100 MLS/HR; Start at 11:00 Lactobacillus Acidophilus/ Rhamnosus (Culturelle) 1 cap BID PO Last administered on 02/17/17 08:30; Admin Dose 1 CAP; Start 02/15/17 at 12:30 Allopurinol (Zyloprim) 100 mg DAILY PO Last administered on 02/17/17 08:30; Admin Dose 100 MG; Start 02/15/17 at 11:00 Finasteride (Proscar) 5 mg DAILY PO Last administered on 02/17/17 08:30; Admin Dose 5 MG; Start 02/15/17 at 11:00 Aspirin (Halfprin) 81 mg DAILY PO Last administered on 02/17/17 08:30; Admin Dose 81 MG; Start 02/15/17 at 11:00 Vancomycin HCl (Vancomycin Oral Syringe) 250 mg Q6 PO Last administered on 02/17 05:48; Admin Dose 250 MG; Start 02/15/17 at 13:00; Stop 02/20/17 at 06:01 Salmeterol Xinafoate/ Fluticasone (Advair 250/50 Diskus) 1 inh BID INH Last administered on 02/17/17 08:31; Admin Dose 1 INH; Start 02/16/17 at 09:30 Citalopram Hydrobromide (Celexa) 10 mg DAILY PO Last administered on 02/17/17 08:29; Admin Dose 10 MG; Start 02/17/17 at 09:00 Alprazolam (Xanax) 0.25 mg Q8H PRN PO ANXIETY Last administered on 02/16/17 23 :22; Admin Dose 0.25 MG; Start 02/16/17 at 12:00 Atorvastatin Calcium (Lipitor) 10 mg QHS PO Last administered on 02/16/17 20: 48; Admin Dose 10 MG; Start 02/16/17 at 21:00 Bumetanide (Bumex) 1 mg DAILY PO Last administered on 02/17/17 08:28; Admin Dose 1 MG; Start 02/16/17 at 12:00 Fenofibrate (Tricor) 48 mg DAILY PO Last administered on 02/17/17 08:29; Admin Dose 48 MG; Start 02/16/17 at 12:00 Lisinopril (Zestril) 20 mg DAILY PO Last administered on 02/17/17 08:30; Admin Dose 20 MG; Start 02/17/17 at 09:00 Multivit/Ca Carb/ B Cmplx/FA/Prenat (Alissa-Supriya) 1 tab DAILY PO Last administered on 02/17/17t 08:29; Admin Dose 1 TAB; Start 02/16/17 at 12:00 Sodium Chloride (Deep Sea) 1 spray Q4 PRN NASAL NASAL CONGESTION; Start at 10:30 Procedures Procedures Echocardiogram Report Patient Name: ROSALINDA XAVIER Gender: Male Date: 1945 Study Date: 15-Feb-2017 Head Insulation Board Saw Operator: [facility] Location: 5538 Ref. Physician: JOANNE NINO Quality: Adequate Procedures: Transthoracic echocardiogram with complete 2D, M-Mode, and doppler examination. Indications: Evaluate Left Ventricular function. 2D/M Mode Doppler Measurement Value Normal Ranges Measurement Value Normal Ranges LVIDd 2D 4.5 3.5 - 5.6 cm AV Peak [place]ila 1.2 m/sec LVIDs 2D 3.3 2.1 - 4.1 cm AV Peak PG 5.9 mmHg LVPWd 2D 1.1 0.6 - 1.1 cm LVOT Peak Avila 0.7 m/sec IVSd 2D 1.1 0.6 - 1.1 cm LVOT Peak PG 2.1 mmHg AoR Diam 2D 2.2 2.0 - 3.7 cm MV E Peak Avila 1.0 m/sec EDV 2D 90.7 cm3 MV A Peak Avila 0.9 m/sec ESV 2D 34.5 cm3 MV E/A 1.1 MV Decel Time 134 msec MV Decel [place] 8 MV E/A 1.1 TR Peak Avila 2.6 m/sec TR Peak PG 27.7 mmHg Findings Left Ventricle: Normal left ventricular systolic function. Normal left ventricular cavity size. Left ventricular wall thickness upper limits of normal. Ejection fraction is visually estimated at 60 %. Tissue Doppler/Mitral Doppler indices are consistent with impaired relaxation (Stage I diastolic dysfunction). Right Ventricle: Normal right ventricular size. Normal right ventricular systolic function. Left Atrium: The left atrium is normal in size. Right Atrium: The right atrium is normal in size. RA Pressure=8. Mitral Valve: Mitral valve leaflets appear mildly thickened. Trace mitral regurgitation. Aortic Valve: Normal appearance of the aortic valve. No significant aortic stenosis or insufficiency. Tricuspid Valve: Tricuspid valve not well visualized. Estimated peak PA systolic pressure 36 mmHg. There is mild tricuspid regurgitation. Pulmonic Valve: There is trace pulmonic regurgitation. Pericardium: Left pleural effusion seen. Aorta: Normal aortic root. IVC: Normal size and no respiratory collapse consistent with elevated right atrial pressure. Conclusions 1. Normal left ventricular systolic function. Normal left ventricular cavity size. Left ventricular wall thickness upper limits of normal. Ejection fraction is visually estimated at 60 %. Tissue Doppler/Mitral Doppler indices are consistent with impaired relaxation (Stage I diastolic dysfunction). 2. Normal right ventricular size. Normal right ventricular systolic function. 3. The left atrium is normal in size. 4. The right atrium is normal in size. RA Pressure=8. 5. Tricuspid valve not well visualized. Estimated peak PA systolic pressure 36 mmHg. There is mild tricuspid regurgitation. 6. No significant valvular stenosis or regurgitation seen of remaining visualized valves. 7. Left pleural effusion seen. Electronically Signed By: Jacobo Dodson 16-Feb-2017 16:43:28 -0700 FARAZ NINO Feb 17, 2017 10:20
[2017-02-17] MEDS ORDERED: SALINE 0.65% 45 ML NAS SPRAY NASAL PRN (10:30)
[2017-02-17 11:49] LABS: ABNORMAL IP MESSAGE 1; BASOPHILS % 0.3 % (0.0-2.0); HEMATOCRIT 27.5 % (42.0-52.0); LYMPHOCYTES # 1.1 10^3/ul (0.8-2.9); LYMPHOCYTES % 18.4 % (15.0-51.0); MEAN CORPUSCULAR HGB CONC 29.1 g/dl (32.0-37.0); MEAN PLATELET VOLUME 8.7 fl (7.4-10.4); MONOCYTE # 0.6 10^3/ul (0.3-0.9); MONOCYTES % 9.9 % (0.0-11.0); NEUTROPHILS % 66.2 % (39.0-77.0); NUCLEATED RED BLOOD CELLS% 0.3 /100WBC (0.0-0.0); PLATELET COUNT 256 10^3/UL (140-415); RED BLOOD COUNT 2.67 10^6/ul (4.70-6.10); RED CELL DISTRIBUTION WIDTH 14.9 % (11.5-14.5)
[2017-02-17] MEDS ORDERED: HEPARIN 1000 UNITS/ML 10 ML INJ CATHETER SCH (14:00)
[2017-02-17] MEDS: ATORVASTATIN 10 MG TAB PO SCH (20:06)
[2017-02-17] MEDS: ALPRAZOLAM 0.25 MG TAB PO PRN (20:06)
[2017-02-17] MEDS: METOPROLOL 25 MG TAB PO SCH (20:16)
--- NOTE | 2017-02-17 22:18 | CONS ---
Date/Time of Note Date/Time of Note DATE: 02/17/17 TIME: 22:12 Assessment/Plan Assessment/Plan Chief Complaint/Hosp Course Pt seen on HD today, without any problems Problems: Additional Assessment/Plan Pt needs AVF, will order Venous Mapping may dc bumex Cont'd Hospitalization Reason: will get a f/u cxr Consultation Date/Type/Reason Admit Date/Time Feb 15, 2017 at 04:37 Initial Consult Date Type of Consultation: Renal Referring Provider: FARAZ NINO 24 HR Interval Summary Constitutional: improved Exam/Review of Systems Vital Signs Vitals Vital Signs Date Time Temp Pulse Resp B/P Pulse Ox O2 Delivery O2 Flow Rate FiO2 02/17/17 20:43 68 20 90 Nasal Cannula 4.0 02/17/17 20:00 99.3 122/60 Intake and Output 02/16/17 02/16/17 02/17/17 15:00 23:00 07:00 Intake Total 50 ml 730 ml 80 ml Balance 50 ml 730 ml 80 ml Exam Constitutional: alert, oriented, well developed Psych: nl mood/affect, no complaints Head: atraumatic, normocephalic Eyes: EOMI, PERRL, nl conjunctiva, nl lids, nl sclera ENMT: nl external ears & nose, nl lips & teeth, nl nasal mucosa & septum Neck: non-tender, supple Respiratory: clear to auscultation, normal air movement, other (rt chest wall permacath in place) Cardiovascular: nl pulses, regular rate and rhythm Gastrointestinal: nl liver, spleen, non-tender, soft Musculoskeletal: nl extremities to inspection, nl gait and stance Extremities: normal pulses Neurological: FLIGHT CONTROL SPECIALIST II-XII intact, nl mental status, nl speech, nl strength Skin: nl turgor, No rash or lesions Lymph: nl lymph nodes Results Result Diagram: 02/17/17 1135 02/17/17 0625 Results 24 hrs Laboratory Tests Test 02/17/17 06:25 02/17/17 07:31 02/17/17 11:35 02/17/17 12:10 Sodium Level 135 Potassium Level 4.2 Chloride Level 104 Carbon Dioxide Level 27 Anion Gap 8 Blood Urea Nitrogen 34 #H Creatinine 3.65 #H Glucose Level 83 # Calcium Level 8.2 L Phosphorus Level 4.7 Magnesium Level 2.1 Bedside Glucose 94 112 White Blood Count 6.0 Red Blood Count 2.67 L Hemoglobin 8.0 L Hematocrit 27.5 L Mean Corpuscular Volume 103.0 H Mean Corpuscular Hemoglobin 30.0 Mean Corpuscular Hemoglobin Concent 29.1 L Red Cell Distribution Width 14.9 H Platelet Count 256 Mean Platelet Volume 8.7 Neutrophils % 66.2 Lymphocytes % 18.4 Monocytes % 9.9 Eosinophils % 0.0 Basophils % 0.3 Nucleated Red Blood Cells % 0.3 H Neutrophils # 4.0 Lymphocytes # 1.1 Monocytes # 0.6 Eosinophils # 0.0 Basophils # 0.0 Nucleated Red Blood Cells # 0.0 Test 02/17/17 17:33 02/17/17 20:10 Bedside Glucose 162 214 Medications Medications Current Medications Ondansetron HCl (Zofran Inj) 4 mg Q6H PRN IV NAUSEA AND/OR VOMITING Last administered on 02/16/17 08:31; Admin Dose 4 MG; Start 02/15/17 at 09:30 Acetaminophen (Tylenol Tab) 650 mg Q6H PRN PO PAIN LEVEL 1-3 OR FEVER; Start at 09:30 Acetaminophen/ Hydrocodone Bitart ([place] (5/325)) 1 tab Q6H PRN PO PAIN LEVEL 4 -6 Last administered on 02/15/17 22:00; Admin Dose 1 TAB; Start 02/15/17 at 09: 30 Docusate Sodium (Colace) 100 mg Q12H PRN PO CONSTIPATION; Start 02/15/17 at 09: 30 Magnesium Hydroxide (Milk Of Mag) 30 ml DAILY PRN PO CONSTIPATION; Start at 09:30 Bisacodyl (Dulcolax Supp) 10 mg DAILY PRN OR CONSTIPATION; Start 02/15/17 at 09 :30 Famotidine (Pepcid) 20 mg DAILY PO Last administered on 02/17/17 08:29; Admin Dose 20 MG; Start 02/15/17 at 10:00 Miscellaneous Information 1 ea NOTE XX ; Start 02/15/17 at 09:30 Glucose (Glutose) 15 gm Q15M PRN PO DECREASED GLUCOSE; Start 02/15/17 at 09:30 Glucose (Glutose) 22.5 gm Q15M PRN PO DECREASED GLUCOSE; Start 02/15/17 at 09: 30 Dextrose (D50w Syringe) 25 ml Q15M PRN IV DECREASED GLUCOSE; Start 02/15/17 at 09:30 Dextrose (D50w Syringe) 50 ml Q15M PRN IV DECREASED GLUCOSE; Start 02/15/17 at 09:30 Glucagon (Glucagen) 1 mg Q15M PRN IM DECREASED GLUCOSE; Start 02/15/17 at 09:30 Glucose (Glutose) 15 gm Q15M PRN BUCCAL DECREASED GLUCOSE; Start 02/15/17 at 09 :30 Amiodarone HCl 200 mg 200 mg DAILY PO Last administered on 02/17/17 08:30; Admin Dose 200 MG; Start 02/15/17 at 11:00 Piperacillin Sod/ Tazobactam Sod (Zosyn 2.25gm/ 50ml (Pmx)) 50 ml @ 100 mls/hr Q12 IVPB Last administered on 02/17/17 20:17; Admin Dose 100 MLS/HR; Start at 11:00 Lactobacillus Acidophilus/ Rhamnosus (Culturelle) 1 cap BID PO Last administered on 02/17/17 20:06; Admin Dose 1 CAP; Start 02/15/17 at 12:30 Allopurinol (Zyloprim) 100 mg DAILY PO Last administered on 02/17/17 08:30; Admin Dose 100 MG; Start 02/15/17 at 11:00 Finasteride (Proscar) 5 mg DAILY PO Last administered on 02/17/17 08:30; Admin Dose 5 MG; Start 02/15/17 at 11:00 Aspirin (Halfprin) 81 mg DAILY PO Last administered on 02/17/17 08:30; Admin Dose 81 MG; Start 02/15/17 at 11:00 Vancomycin HCl (Vancomycin Oral Syringe) 250 mg Q6 PO Last administered on 02/17 17:38; Admin Dose 250 MG; Start 02/15/17 at 13:00; Stop 02/20/17 at 06:01 Salmeterol Xinafoate/ Fluticasone (Advair 250/50 Diskus) 1 inh BID INH Last administered on 02/17/17 20:06; Admin Dose 1 INH; Start 02/16/17 at 09:30 Citalopram Hydrobromide (Celexa) 10 mg DAILY PO Last administered on 02/17/17 08:29; Admin Dose 10 MG; Start 02/17/17 at 09:00 Alprazolam (Xanax) 0.25 mg Q8H PRN PO ANXIETY Last administered on 02/17/17 20 :06; Admin Dose 0.25 MG; Start 02/16/17 at 12:00 Atorvastatin Calcium (Lipitor) 10 mg QHS PO Last administered on 02/17/17 20: 06; Admin Dose 10 MG; Start 02/16/17 at 21:00 Bumetanide (Bumex) 1 mg DAILY PO Last administered on 02/17/17 08:28; Admin Dose 1 MG; Start 02/16/17 at 12:00 Fenofibrate (Tricor) 48 mg DAILY PO Last administered on 02/17/17 08:29; Admin Dose 48 MG; Start 02/16/17 at 12:00 Lisinopril (Zestril) 20 mg DAILY PO Last administered on 02/17/17 08:30; Admin Dose 20 MG; Start 02/17/17 at 09:00 Multivit/Ca Carb/ B Cmplx/FA/Prenat (Alissa-Supriya) 1 tab DAILY PO Last administered on 02/17/17 08:29; Admin Dose 1 TAB; Start 02/16/17 at 12:00 Sodium Chloride (Deep Sea) 1 spray Q4 PRN NASAL NASAL CONGESTION; Start at 10:30 Metoprolol Tartrate (Lopressor) 25 mg BID PO Last administered on 02/17/17 20: 16; Admin Dose 25 MG; Start 02/17/17 at 21:00 Linagliptin (Tradjenta) 5 mg DAILY PO ; Start 02/18/17 at 09:00 CHRISTIANE PARSON MD Feb 17, 2017 22:18
[2017-02-18] VITALS (17 sets, daily range): BP systolic 123–154; BP diastolic 59–72; PULSE 61–71; RESP 17–21
[2017-02-18] MEDS: VANCOMYCIN HCL 250 MG/5ML POSYG PO SCH ×5 (00:29→18:07)
[2017-02-18] MEDS: INSULIN ASPART [NOVOLOG] 3 ML PEN SC SCH ×4 (08:00→20:34)
[2017-02-18] MEDS: ALBUTEROL/IPRATROPIUM (NEB) 3 ML AMP HHN SCH ×3 (08:39→16:00)
[2017-02-18] MEDS: ALLOPURINOL 100 MG TAB PO SCH (09:15)
[2017-02-18] MEDS: AMIODARONE 200 MG TAB PO SCH (09:16)
[2017-02-18] MEDS: LINAGLIPTIN 5 MG TABLET PO SCH (09:16)
[2017-02-18] MEDS: ASPIRIN (EC) 81 MG TAB PO SCH (09:16)
[2017-02-18] MEDS: MULTIVIT/CA CARB/B CMPLX/FA TAB PO SCH (09:16)
[2017-02-18] MEDS: FINASTERIDE 5 MG TAB PO SCH (09:16)
[2017-02-18] MEDS: METOPROLOL 25 MG TAB PO SCH ×2 (09:17→20:18)
[2017-02-18] MEDS: CITALOPRAM 20 MG TAB PO SCH (09:17)
[2017-02-18] MEDS: BUMETANIDE 1 MG TAB PO SCH (09:17)
[2017-02-18] MEDS: FAMOTIDINE 20 MG TAB PO SCH (09:17)
[2017-02-18] MEDS: LACTOBACILLUS RHAMNOSUS CAP PO SCH ×2 (09:18→20:19)
[2017-02-18] MEDS: ALPRAZOLAM 0.25 MG TAB PO PRN ×2 (09:18→20:18)
[2017-02-18] MEDS: LISINOPRIL 20 MG TAB PO SCH (09:18)
[2017-02-18] MEDS: HYDROCODONE/APAP (5/325) TAB PO PRN (09:18)
[2017-02-18] MEDS: SALMETEROL/FLUTICASONE 250/50 INHA INH SCH ×2 (09:19→20:19)
[2017-02-18] MEDS: FENOFIBRATE 48 MG TAB PO SCH (09:21)
--- NOTE | 2017-02-18 11:03 | RADRPT ---
PROCEDURE: XR Chest 1 view. CLINICAL INDICATION: Shortness of breath. TECHNIQUE: AP views of the chest were obtained. COMPARISON: February 16, 2017 FINDINGS: The heart is large. Calcified atherosclerosis is noted in the aorta. Right-sided dialysis catheter is stable. Central pulmonary vascular congestion and interstitial prominence in both lungs is uncha nged. Bilateral perihilar and lower lung infiltrates combined with small to moderate pleural effusi ons are stable. The osseous structures are unchanged. IMPRESSION: Cardiomegaly with calcified atherosclerosis in the aorta. Stable central pulmonary vascular congestion and interstitial prominence in both lungs. Stable bilateral perihilar and lower lung infiltrates, combined with small to moderate pleural effus ions. RPTAT: AA .Miki Krause MD, MD Date Time Electronically viewed and signed by .Miki Krause MD, MD on 02/18/2017 11:03 .P/
--- NOTE | 2017-02-18 11:21 | CONS ---
Date/Time of Note Date/Time of Note DATE: 02/18/17 TIME: 11:15 Assessment/Plan Assessment/Plan Chief Complaint/Hosp Course Will rpt CXR to evaluate opacities Next HD in AM BS, Hbg stable Problems: Additional Assessment/Plan Pt needs permanant access, will get venous mapping Consultation Date/Type/Reason Admit Date/Time Feb 15, 2017 at 04:37 Type of Consultation: Renal Referring Provider: FARAZ NINO 24 HR Interval Summary Free Text/Dictation at bedside, says pt has been confined to bed Constitutional: no complaints Exam/Review of Systems Vital Signs Vitals Vital Signs Date Time Temp Pulse Resp B/P Pulse Ox O2 Delivery O2 Flow Rate FiO2 02/18/17 08:40 5.0 02/18/17 08:40 70 20 Nasal Cannula 02/18/17 08:04 98.0 127/62 100 Intake and Output 02/17/17 02/17/17 02/18/17 15:00 23:00 07:00 Intake Total 50 ml 800 ml 100 ml Output Total 2800 ml Balance 50 ml -2000 ml 100 ml Exam Constitutional: alert, oriented, well developed Psych: nl mood/affect, no complaints Head: atraumatic, normocephalic Eyes: EOMI, PERRL, nl conjunctiva, nl lids, nl sclera ENMT: nl external ears & nose, nl lips & teeth, nl nasal mucosa & septum Neck: non-tender, supple Respiratory: clear to auscultation, normal air movement, other (Rt chest wall permacth in place) Cardiovascular: nl pulses, regular rate and rhythm Gastrointestinal: nl liver, spleen, non-tender, soft Musculoskeletal: muscle weakness, nl extremities to inspection, nl gait and stance Extremities: normal pulses 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, nl mental status, nl speech, nl strength Skin: nl turgor, No rash or lesions Lymph: nl lymph nodes Results Result Diagram: 02/17/17 1135 02/17/17 0625 Results 24 hrs Laboratory Tests Test 02/17/17 11:35 02/17/17 12:10 02/17/17 17:33 02/17/17 20:10 White Blood Count 6.0 Red Blood Count 2.67 L Hemoglobin 8.0 L Hematocrit 27.5 L Mean Corpuscular Volume 103.0 H Mean Corpuscular Hemoglobin 30.0 Mean Corpuscular Hemoglobin Concent 29.1 L Red Cell Distribution Width 14.9 H Platelet Count 256 Mean Platelet Volume 8.7 Neutrophils % 66.2 Lymphocytes % 18.4 Monocytes % 9.9 Eosinophils % 0.0 Basophils % 0.3 Nucleated Red Blood Cells % 0.3 H Neutrophils # 4.0 Lymphocytes # 1.1 Monocytes # 0.6 Eosinophils # 0.0 Basophils # 0.0 Nucleated Red Blood Cells # 0.0 Bedside Glucose 112 162 214 Test 02/18/17 07:57 Bedside Glucose 90 Medications Medications Current Medications Ondansetron HCl (Zofran Inj) 4 mg Q6H PRN IV NAUSEA AND/OR VOMITING Last administered on 02/16/17 08:31; Admin Dose 4 MG; Start 02/15/17 at 09:30 Acetaminophen (Tylenol Tab) 650 mg Q6H PRN PO PAIN LEVEL 1-3 OR FEVER; Start at 09:30 Acetaminophen/ Hydrocodone Bitart ([place] (5/325)) 1 tab Q6H PRN PO PAIN LEVEL 4 -6 Last administered on 02/18/17 09:18; Admin Dose 1 TAB; Start 02/15/17 at 09: 30 Docusate Sodium (Colace) 100 mg Q12H PRN PO CONSTIPATION; Start 02/15/17 at 09: 30 Magnesium Hydroxide (Milk Of Mag) 30 ml DAILY PRN PO CONSTIPATION; Start at 09:30 Bisacodyl (Dulcolax Supp) 10 mg DAILY PRN [place] CONSTIPATION; Start 02/15/17 at 09 :30 Famotidine (Pepcid) 20 mg DAILY PO Last administered on 02/18/17 09:17; Admin Dose 20 MG; Start 02/15/17 at 10:00 Miscellaneous Information 1 ea NOTE XX ; Start 02/15/17 at 09:30 Glucose (Glutose) 15 gm Q15M PRN PO DECREASED GLUCOSE; Start 02/15/17 at 09:30 Glucose (Glutose) 22.5 gm Q15M PRN PO DECREASED GLUCOSE; Start 02/15/17 at 09: 30 Dextrose (D50w Syringe) 25 ml Q15M PRN IV DECREASED GLUCOSE; Start 02/15/17 at 09:30 Dextrose (D50w Syringe) 50 ml Q15M PRN IV DECREASED GLUCOSE; Start 02/15/17 at 09:30 Glucagon (Glucagen) 1 mg Q15M PRN IM DECREASED GLUCOSE; Start 02/15/17 at 09:30 Glucose (Glutose) 15 gm Q15M PRN BUCCAL DECREASED GLUCOSE; Start 02/15/17 at 09 :30 Amiodarone HCl (Cordarone) 200 mg DAILY PO Last administered on 02/18/17 09:16 ; Admin Dose 200 MG; Start 02/15/17 at 11:00 Lactobacillus Acidophilus/ Rhamnosus (Culturelle) 1 cap BID PO Last administered on 02/18/17 09:18; Admin Dose 1 CAP; Start 02/15/17 at 12:30 Allopurinol (Zyloprim) 100 mg DAILY PO Last administered on 02/18/17 09:15; Admin Dose 100 MG; Start 02/15/17 at 11:00 Finasteride (Proscar) 5 mg DAILY PO Last administered on 02/18/17 09:16; Admin Dose 5 MG; Start 02/15/17 at 11:00 Aspirin (Halfprin) 81 mg DAILY PO Last administered on 02/18/17 09:16; Admin Dose 81 MG; Start 02/15/17 at 11:00 Vancomycin HCl (Vancomycin Oral Syringe) 250 mg Q6 PO Last administered on 02/18 05:46; Admin Dose 250 MG; Start 02/15/17 at 13:00; Stop 02/20/17 at 06:01 Salmeterol Xinafoate/ Fluticasone (Advair 250/50 Diskus) 1 inh BID INH Last administered on 02/18/17 09:19; Admin Dose 1 INH; Start 02/16/17 at 09:30 Citalopram Hydrobromide (Celexa) 10 mg DAILY PO Last administered on 02/18/17 09:17; Admin Dose 10 MG; Start 02/17/17 at 09:00 Alprazolam (Xanax) 0.25 mg Q8H PRN PO ANXIETY Last administered on 02/18/17 09 :18; Admin Dose 0.25 MG; Start 02/16/17 at 12:00 Atorvastatin Calcium (Lipitor) 10 mg QHS PO Last administered on 02/17/17 20: 06; Admin Dose 10 MG; Start 02/16/17 at 21:00 Bumetanide (Bumex) 1 mg DAILY PO Last administered on 02/18/17 09:17; Admin Dose 1 MG; Start 02/16/17 at 12:00 Fenofibrate (Tricor) 48 mg DAILY PO Last administered on 02/18/17 09:21; Admin Dose 48 MG; Start 02/16/17 at 12:00 Lisinopril (Zestril) 20 mg DAILY PO Last administered on 02/18/17 09:18; Admin Dose 20 MG; Start 02/17/17 at 09:00 Multivit/Ca Carb/ B Cmplx/FA/Prenat (Alissa-Supriya) 1 tab DAILY PO Last administered on 02/18/17 09:16; Admin Dose 1 TAB; Start 02/16/17 at 12:00 Sodium Chloride (Deep Sea) 1 spray Q4 PRN NASAL NASAL CONGESTION; Start at 10:30 Metoprolol Tartrate (Lopressor) 25 mg BID PO Last administered on 02/18/17 09: 17; Admin Dose 25 MG; Start 02/17/17 at 21:00 Linagliptin 5 mg 5 mg DAILY PO Last administered on 02/18/17 09:16; Admin Dose 5 MG; Start 02/18/17 at 09:00 Piperacillin Sod/ Tazobactam Sod (Zosyn 2.25gm/ 50ml (Pmx)) 50 ml @ 100 mls/hr Q8 IVPB ; Start 02/18/17 at 12:00 CHRISTIANE PARSON MD Feb 18, 2017 11:21
[2017-02-18 11:30] LABS: AADO2 Arterial 106.1 mmHg (7.0-24.0); Allen Test ACCEPTAB; Arterial Base Excess 5.1 mmol/L (-3.0-3); Arterial COHb 0 % (0.0-3.0); Arterial Fraction of Oxyhgb 88.3 % (93.0-99.0); Arterial HCO3 34.2 mmol/L (22.0-26.0); Arterial MetHb 0.4 % (0.0-1.5); Arterial Total Hemglobin 9.9 g/dl (12.0-18.0); MODE NASAL CANNULA
--- NOTE | 2017-02-18 11:37 | PN ---
Date/Time of Note Date/Time of Note DATE: 02/18/17 TIME: 11:24 Assessment/Plan VTE Prophylaxis VTE Prophylaxis Intervention: SCD's Lines/Catheters IV Catheter Type (from Nrsg): Kalin cath Urinary Cath still in place: No Assessment/Plan Assessment/Plan 71-year-old male with: 1. Acute on chronic respiratory insufficiency and hypoxemia, back in SR and s/ p right thoracentesis with findings of septated small pleural effusion and 40 cc serous fluid sent to lab on 4 L NC with occasional desats to 83% apparently. Check ABG, CXR stable, s/p HD yesterday Continue nebs and Advair. Continue IV abx, Zosyn Monitor respiratory status 2. Chronic obstructive pulmonary disease, likely to be O2 dependent. ABG c/w with CO2 retention, BiPAP and steroids ordered. Pulmonary consult today. Continue nebulizer treatments and Advair S/p right thoracentesis. 3. Atrial fibrillation with rapid ventricular rate. Back to sinus rhythm. Continue amiodarone and back to outpatient Metoprolol as tolerated. 2D echo done and EF 60% 4. End-stage renal disease, on hemodialysis. HD yesterday as per outpatient schedule, on Bumex. Dr. Solares following 5. Hypoglycemic episode, likely due to overmedication. BG stable now. A1c 7.3 and normoglycemic for now Resume Lantus when BG back up 6. Hypertension. Back on Metoprolol, 2D echocardiogram with EF 60% Add on JAMES inhibitors for afterload reduction later on if needed. 7. Hyperlipidemia. Continue with statin, check fasting lipid panel with AM labs tomorrow. 8. Diabetic neuropathy. Continue Neurontin, down to 100 mg b.i.d. 9. Major depressive disorder, anxiety disorder. Continue citalopram and Xanax as needed. 10. Chronic Anemia, of chronic disease. Stable Hb so far. CBC pending this AM Hopefully getting epo with HD and will resume Renavite Prophylaxis: Sequential compression devices to lower extremity for deep venous thrombosis prophylaxis, ASA. GI prophylaxis with proton pump inhibitors. DISPOSITION: HD yesterday, d/c plan back to SNF when more stable. Monitor respiratory status, BiPAP today Prognosis remains fair Full Code. Subjective 24 Hr Interval Summary Free Text/Dictation Patient feels weak and has a hard time taking a deep breath but exam mostly unchanged Afebrile, s/p HD yesterday CXR unchanged ABG c/w with Co2 retention and respiratory acidosis. Exam/Review of Systems Vital Signs Vitals Vital Signs Date Time Temp Pulse Resp B/P Pulse Ox O2 Delivery O2 Flow Rate FiO2 02/18/17 08:40 5.0 02/18/17 08:40 70 20 Nasal Cannula 02/18/17 08:04 98.0 127/62 100 Intake and Output 02/17/17 02/17/17 02/18/17 15:00 23:00 07:00 Intake Total 50 ml 800 ml 100 ml Output Total 2800 ml Balance 50 ml -2000 ml 100 ml Exam Constitutional: alert, frail, oriented, other (elderly ) Psych: anxiety Respiratory: diminished breath sounds (right lung ), other (no wheezing but seems to be hyperventilating ) Cardiovascular: nl pulses, regular rate and rhythm Gastrointestinal: non-tender, soft Musculoskeletal: nl extremities to inspection Extremities: normal pulses, other (no edema, clubbing or cyanosis ) 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, nl mental status, nl speech, other ( generalised weakness ) Results Result Diagram: 02/17/17 1135 02/17/17 0625 Results 24 hrs Laboratory Tests Test 02/17/17 11:35 02/17/17 12:10 02/17/17 17:33 02/17/17 20:10 White Blood Count 6.0 Red Blood Count 2.67 L Hemoglobin 8.0 L Hematocrit 27.5 L Mean Corpuscular Volume 103.0 H Mean Corpuscular Hemoglobin 30.0 Mean Corpuscular Hemoglobin Concent 29.1 L Red Cell Distribution Width 14.9 H Platelet Count 256 Mean Platelet Volume 8.7 Neutrophils % 66.2 Lymphocytes % 18.4 Monocytes % 9.9 Eosinophils % 0.0 Basophils % 0.3 Nucleated Red Blood Cells % 0.3 H Neutrophils # 4.0 Lymphocytes # 1.1 Monocytes # 0.6 Eosinophils # 0.0 Basophils # 0.0 Nucleated Red Blood Cells # 0.0 Bedside Glucose 112 162 214 Test 02/18/17 07:57 Bedside Glucose 90 Medications Medications Current Medications Ondansetron HCl (Zofran Inj) 4 mg Q6H PRN IV NAUSEA AND/OR VOMITING Last administered on 02/16/17t 08:31; Admin Dose 4 MG; Start 02/15/17 at 09:30 Acetaminophen (Tylenol Tab) 650 mg Q6H PRN PO PAIN LEVEL 1-3 OR FEVER; Start at 09:30 Acetaminophen/ Hydrocodone Bitart ([place] (5/325)) 1 tab Q6H PRN PO PAIN LEVEL 4 -6 Last administered on 02/18/17 09:18; Admin Dose 1 TAB; Start 02/15/17 at 09: 30 Docusate Sodium (Colace) 100 mg Q12H PRN PO CONSTIPATION; Start 02/15/17 at 09: 30 Magnesium Hydroxide (Milk Of Mag) 30 ml DAILY PRN PO CONSTIPATION; Start at 09:30 Bisacodyl (Dulcolax Supp) 10 mg DAILY PRN [place] CONSTIPATION; Start 02/15/17 at 09 :30 Famotidine (Pepcid) 20 mg DAILY PO Last administered on 02/18/17 09:17; Admin Dose 20 MG; Start 02/15/17 at 10:00 Miscellaneous Information 1 ea NOTE XX ; Start 02/15/17 at 09:30 Glucose (Glutose) 15 gm Q15M PRN PO DECREASED GLUCOSE; Start 02/15/17 at 09:30 Glucose (Glutose) 22.5 gm Q15M PRN PO DECREASED GLUCOSE; Start 02/15/17 at 09: 30 Dextrose (D50w Syringe) 25 ml Q15M PRN IV DECREASED GLUCOSE; Start 02/15/17 at 09:30 Dextrose (D50w Syringe) 50 ml Q15M PRN IV DECREASED GLUCOSE; Start 02/15/17 at 09:30 Glucagon (Glucagen) 1 mg Q15M PRN IM DECREASED GLUCOSE; Start 02/15/17 at 09:30 Glucose (Glutose) 15 gm Q15M PRN BUCCAL DECREASED GLUCOSE; Start 02/15/17 at 09 :30 Amiodarone HCl (Cordarone) 200 mg DAILY PO Last administered on 02/18/17 09:16 ; Admin Dose 200 MG; Start 02/15/17 at 11:00 Lactobacillus Acidophilus/ Rhamnosus (Culturelle) 1 cap BID PO Last administered on 02/18/17 09:18; Admin Dose 1 CAP; Start 02/15/17 at 12:30 Allopurinol (Zyloprim) 100 mg DAILY PO Last administered on 02/18/17 09:15; Admin Dose 100 MG; Start 02/15/17 at 11:00 Finasteride (Proscar) 5 mg DAILY PO Last administered on 02/18/17 09:16; Admin Dose 5 MG; Start 02/15/17 at 11:00 Aspirin (Halfprin) 81 mg DAILY PO Last administered on 02/18/17 09:16; Admin Dose 81 MG; Start 02/15/17 at 11:00 Vancomycin HCl (Vancomycin Oral Syringe) 250 mg Q6 PO Last administered on 02/18 05:46; Admin Dose 250 MG; Start 02/15/17 at 13:00; Stop 02/20/17 at 06:01 Salmeterol Xinafoate/ Fluticasone (Advair 250/50 Diskus) 1 inh BID INH Last administered on 02/18/17 09:19; Admin Dose 1 INH; Start 02/16/17 at 09:30 Citalopram Hydrobromide (Celexa) 10 mg DAILY PO Last administered on 02/18/17 09:17; Admin Dose 10 MG; Start 02/17/17 at 09:00 Alprazolam (Xanax) 0.25 mg Q8H PRN PO ANXIETY Last administered on 02/18/17 09 :18; Admin Dose 0.25 MG; Start 02/16/17 at 12:00 Atorvastatin Calcium (Lipitor) 10 mg QHS PO Last administered on 02/17/17 20: 06; Admin Dose 10 MG; Start 02/16/17 at 21:00 Bumetanide (Bumex) 1 mg DAILY PO Last administered on 02/18/17 09:17; Admin Dose 1 MG; Start 02/16/17 at 12:00 Fenofibrate (Tricor) 48 mg DAILY PO Last administered on 02/18/17 09:21; Admin Dose 48 MG; Start 02/16/17 at 12:00 Lisinopril (Zestril) 20 mg DAILY PO Last administered on 02/18/17 09:18; Admin Dose 20 MG; Start 02/17/17 at 09:00 Multivit/Ca Carb/ B Cmplx/FA/Prenat (Alissa-Supriya) 1 tab DAILY PO Last administered on 02/18/17 09:16; Admin Dose 1 TAB; Start 02/16/17 at 12:00 Sodium Chloride (Deep [place]) 1 spray Q4 PRN NASAL NASAL CONGESTION; Start at 10:30 Metoprolol Tartrate (Lopressor) 25 mg BID PO Last administered on 02/18/17 09: 17; Admin Dose 25 MG; Start 02/17/17 at 21:00 Linagliptin 5 mg 5 mg DAILY PO Last administered on 02/18/17 09:16; Admin Dose 5 MG; Start 02/18/17 at 09:00 Piperacillin Sod/ Tazobactam Sod (Zosyn 2.25gm/ 50ml (Pmx)) 50 ml @ 100 mls/hr Q8 IVPB ; Start 02/18/17 at 12:00 Procedures Procedures PROCEDURE: XR Chest 1 view. CLINICAL INDICATION: Shortness of breath. TECHNIQUE: AP views of the chest were obtained. COMPARISON: February 16, 2017 FINDINGS: The heart is large. Calcified atherosclerosis is noted in the aorta. Right- sided dialysis catheter is stable. Central pulmonary vascular congestion and interstitial prominence in both lungs is unchanged. Bilateral perihilar and lower lung infiltrates combined with small to moderate pleural effusions are stable. The osseous structures are unchanged. IMPRESSION: Cardiomegaly with calcified atherosclerosis in the aorta. Stable central pulmonary vascular congestion and interstitial prominence in both lungs. Stable bilateral perihilar and lower lung infiltrates, combined with small to moderate pleural effusions. RPTAT: AA .Miki Krause MD, MD Date Time Electronically viewed and signed by .Miki Krause MD, on 02/18/2017 11:03 FARAZ NINO Feb 18, 2017 11:37
[2017-02-18] MEDS ORDERED: METHYLPREDNISOLONE 125 MG INJ IV ONE (12:00)
--- NOTE | 2017-02-18 12:04 | CONS ---
Date/Time of Note Date/Time of Note DATE: 02/18/17 TIME: 12:04 Consultation Date/Type/Reason Admit Date/Time Feb 15, 2017 at 04:37 Date of Consultation: Feb 18, 2017 Type of Consultation: pulmonary Reason for Consultation dictated, # [id number] Constitutional: no complaints Psychological: anxiety Past Medical History Medical History: hypertension, renal disease Past Surgical History Past Surgical Hx: other (PC) Social History Alcohol Use: other (former) Smoking Status: Former smoker Drug Use: none Exam/Review of Systems Vital Signs Vitals Vital Signs Date Time Temp Pulse Resp B/P Pulse Ox O2 Delivery O2 Flow Rate FiO2 02/18/17 08:40 5.0 02/18/17 08:40 70 20 Nasal Cannula 02/18/17 08:04 98.0 127/62 100 Intake and Output 02/17/17 02/17/17 02/18/17 14:59 22:59 06:59 Intake Total 50 ml 800 ml 100 ml Output Total 2800 ml Balance 50 ml -2000 ml 100 ml Results Result Diagram: 02/17/17 1135 02/17/17 0625 Results 24 hrs Laboratory Tests Test 02/17/17 12:10 02/17/17 17:33 02/17/17 20:10 02/18/17 07:57 Bedside Glucose 112 162 214 90 Test 02/18/17 09:33 Blood Gas Specimen Source Blood arterial Arterial Blood Date Drawn 02/18/2017 11:20:34 AM Arterial Blood pH (Temp corrected) 7.239 *L Arterial Blood pCO2 (Temp correct) 81.8 *H Arterial Blood pO2 (Temp corrected) 55.7 L Arterial Blood HCO3 34.2 H Arterial Blood Base Excess 5.1 H Arterial Blood Oxygen Saturation 88.7 L Eduard Test ACCEPTAB Arterial Blood Gas Puncture Site Left Radial Arterial Blood Carboxyhemoglobin 0 Arterial Blood Methemoglobin 0.4 Blood Gas A-a O2 Differential 106.1 H Oxyhemoglobin Percent 88.3 L Total Hemoglobin 9.9 L Blood Gas Temperature 37.0 Blood Gas Modality NASAL CANNULA FiO2 36.0 Blood Gas Critical Value Read Back Tanner SANTACRUZ RN Blood Gas Notified Whom SERGIO Blood Gas Notified Time 02/18/2017 11:28:21 AM Medications Medications Current Medications Ondansetron HCl (Zofran Inj) 4 mg Q6H PRN IV NAUSEA AND/OR VOMITING Last administered on 02/16/17 08:31; Admin Dose 4 MG; Start 02/15/17 at 09:30 Acetaminophen (Tylenol Tab) 650 mg Q6H PRN PO PAIN LEVEL 1-3 OR FEVER; Start at 09:30 Acetaminophen/ Hydrocodone Bitart ([place] (5/325)) 1 tab Q6H PRN PO PAIN LEVEL 4 -6 Last administered on 02/18/17 09:18; Admin Dose 1 TAB; Start 02/15/17 at 09: 30 Docusate Sodium (Colace) 100 mg Q12H PRN PO CONSTIPATION; Start 02/15/17 at 09: 30 Magnesium Hydroxide (Milk Of Mag) 30 ml DAILY PRN PO CONSTIPATION; Start at 09:30 Bisacodyl (Dulcolax Supp) 10 mg DAILY PRN [place] CONSTIPATION; Start 02/15/17 at 09 :30 Famotidine (Pepcid) 20 mg DAILY PO Last administered on 02/18/17 09:17; Admin Dose 20 MG; Start 02/15/17 at 10:00 Miscellaneous Information 1 ea NOTE XX ; Start 02/15/17 at 09:30 Glucose (Glutose) 15 gm Q15M PRN PO DECREASED GLUCOSE; Start 02/15/17 at 09:30 Glucose (Glutose) 22.5 gm Q15M PRN PO DECREASED GLUCOSE; Start 02/15/17 at 09: 30 Dextrose (D50w Syringe) 25 ml Q15M PRN IV DECREASED GLUCOSE; Start 02/15/17 at 09:30 Dextrose (D50w Syringe) 50 ml Q15M PRN IV DECREASED GLUCOSE; Start 02/15/17 at 09:30 Glucagon (Glucagen) 1 mg Q15M PRN IM DECREASED GLUCOSE; Start 02/15/17 at 09:30 Glucose (Glutose) 15 gm Q15M PRN BUCCAL DECREASED GLUCOSE; Start 02/15/17 at 09 :30 Amiodarone HCl (Cordarone) 200 mg DAILY PO Last administered on 02/18/17 09:16 ; Admin Dose 200 MG; Start 02/15/17 at 11:00 Lactobacillus Acidophilus/ Rhamnosus (Culturelle) 1 cap BID PO Last administered on 02/18/17 09:18; Admin Dose 1 CAP; Start 02/15/17 at 12:30 Allopurinol (Zyloprim) 100 mg DAILY PO Last administered on 02/18/17 09:15; Admin Dose 100 MG; Start 02/15/17 at 11:00 Finasteride (Proscar) 5 mg DAILY PO Last administered on 02/18/17 09:16; Admin Dose 5 MG; Start 02/15/17 at 11:00 Aspirin (Halfprin) 81 mg DAILY PO Last administered on 02/18/17 09:16; Admin Dose 81 MG; Start 02/15/17 at 11:00 Vancomycin HCl (Vancomycin Oral Syringe) 250 mg Q6 PO Last administered on 02/18 05:46; Admin Dose 250 MG; Start 02/15/17 at 13:00; Stop 02/20/17 at 06:01 Salmeterol Xinafoate/ Fluticasone (Advair 250/50 Diskus) 1 inh BID INH Last administered on 02/18/17 09:19; Admin Dose 1 INH; Start 02/16/17 at 09:30 Citalopram Hydrobromide (Celexa) 10 mg DAILY PO Last administered on 02/18/17 09:17; Admin Dose 10 MG; Start 02/17/17 at 09:00 Alprazolam (Xanax) 0.25 mg Q8H PRN PO ANXIETY Last administered on 02/18/17 09 :18; Admin Dose 0.25 MG; Start 02/16/17 at 12:00 Atorvastatin Calcium (Lipitor) 10 mg QHS PO Last administered on 02/17/17 20: 06; Admin Dose 10 MG; Start 02/16/17 at 21:00 Bumetanide (Bumex) 1 mg DAILY PO Last administered on 02/18/17 09:17; Admin Dose 1 MG; Start 02/16/17 at 12:00 Fenofibrate (Tricor) 48 mg DAILY PO Last administered on 02/18/17 09:21; Admin Dose 48 MG; Start 02/16/17 at 12:00 Lisinopril (Zestril) 20 mg DAILY PO Last administered on 02/18/17 09:18; Admin Dose 20 MG; Start 02/17/17 at 09:00 Multivit/Ca Carb/ B Cmplx/FA/Prenat (Alissa-Supriya) 1 tab DAILY PO Last administered on 02/18/17 09:16; Admin Dose 1 TAB; Start 02/16/17 at 12:00 Sodium Chloride ([place]) 1 spray Q4 PRN NASAL NASAL CONGESTION; Start at 10:30 Metoprolol Tartrate (Lopressor) 25 mg BID PO Last administered on 02/18/17 09: 17; Admin Dose 25 MG; Start 02/17/17 at 21:00 Linagliptin 5 mg 5 mg DAILY PO Last administered on 02/18/17 09:16; Admin Dose 5 MG; Start 02/18/17 at 09:00 Piperacillin Sod/ Tazobactam Sod (Zosyn 2.25gm/ 50ml (Pmx)) 50 ml @ 100 mls/hr Q8 IVPB ; Start 02/18/17 at 12:00 Methylprednisolone Sodium Succinate (Solu-Medrol) 80 mg ONCE ONCE IV ; Start at 12:00; Stop 02/18/17 at 12:01; Status UNV Methylprednisolone Sodium Succinate (Solu-Medrol) 40 mg Q8 IV ; Start 02/18/17 at 20:00; Status UNV SAMY FRANK Feb 18, 2017 12:04
--- NOTE | 2017-02-18 12:33 | CONS ---
DATE OF ADMISSION: 02/15/2017 DATE OF CONSULTATION: 02/18/2017 PULMONARY CONSULTATION TIME: 11:45 a.m. REFERRING PHYSICIAN: Dr. Pacheco REASON FOR REFERRAL: For evaluation of respiratory failure. HISTORY OF PRESENT ILLNESS: Mr. Davies is a pleasant 71-year-old male who was admitted on of this month with complaints of shortness of breath. The patient was recently discharged from [facility] 2 days prior to presentation to ER over here where he was admitted there for respiratory failure as well as pneumonia and also had Clostridium difficile colitis. The patien t also has significant infiltrate involving the right lung, underwent a thoracentesis 3 days ago. O nly about 40 mL of fluid could be removed. The patient's mental status had been gradually declining . A stat ABG was done a short while ago which is showing hypercapnic respiratory failure with respi ratory acidosis. The patient also is getting progressively more obtunded History was obtained from medical record. PAST MEDICAL HISTORY: 1. End-stage renal disease on hemodialysis. 2. Diabetes. 3. Hypertension. 4. Chronic atrial fibrillation, currently in sinus rhythm. 5. History of GI bleed. 6. Chronic obstructive pulmonary disease. 7. Neuropathy. 8. Benign prostatic hypertrophy. 9. Hyperlipidemia. 10. Depression 11. Recent pneumonia and respiratory failure. 12. Reflux. CURRENT MEDICATIONS: 1. Zosyn 2.25 g q.12 hours. 2. Acetaminophen on a p.r.n. basis. 3. DuoNeb q.8 hours. 4. Allopurinol 100 mg a day. 5. Xanax on a p.r.n. basis. 6. Amiodarone 200 mg daily. 7. Aspirin 81 mg a day. 8. Lipitor 10 mg a day. 9. Bumex 1 mg daily. 10. Celexa 10 mg a day. 11. Tricor 48 mg a day. 12. Proscar 5 mg a day. 13. Hydrocodone on a p.r.n. basis. 14. Lisinopril 20 mg daily. 15. Solu-Medrol 40 mg q.8 hours. 16. Metoprolol 25 mg b.i.d. 17. Sliding scale insulin. 18. Advair 250/50 one puff twice a day. 19. Vancomycin 250 mg orally q.6 hours. ALLERGIES: NONE. SOCIAL HISTORY: The patient has a prior history of smoking. Currently lives in a longterm [facility]. FAMILY HISTORY: The patient is , has a supportive . OCCUPATIONAL HISTORY: Noncontributory. REVIEW OF SYSTEMS: Very limited review of systems could be obtained as the patient is obtunded. He denies any chest pain. PHYSICAL EXAMINATION: GENERAL: Elderly male, awake, currently in no distress, but appears obtunded. VITAL SIGNS: Temperature 98 degree Fahrenheit, blood pressure 130/70, respiratory rate is 12 to 14 per minute, O2 sat 95%. Urine output remains very poor. HEENT AND NECK: Supple neck. No JVD, no lymphadenopathy. Midline trachea, no thyromegaly. The pat ient is edentulous. Pupils are small bilaterally. No neck masses. CHEST: Diminished breath sounds, right lung. Left lung is clear. HEART: S1, S2 audible. Regular rhythm. ABDOMEN: Soft and nontender. No organomegaly. No scars are present. Bowel sounds audible. EXTREMITIES: No peripheral edema. Pulses 1+ bilaterally. CENTRAL NERVOUS SYSTEM: The patient is awake and follows simple commands. Chest x-ray was reviewed from today which is showing marked improvement compared to x-ray done on the of this month whi ch is showing extensive infiltrative changes involving the right lung. LABORATORIES: From yesterday, sodium 135, potassium 4.2, chloride 104, bicarbonate 27, glucose 34, BUN 34, creatinine 3.65, glucose of 83. CBC from yesterday, white count 6, hemoglobin 8, platelet c ount of 256. ABG done a short while ago on 2 L nasal cannula, pH 7.23, CO2 of 81, pO2 of 55, O2 sat of 88.7%. Patient underwent thoracentesis on the of this month, only 40 mL of fluid could be removed from the right side. ASSESSMENT AND PLAN: 1. The patient admitted for extensive right-sided pneumonia with significant radiological improveme nt. 2. Hypercapnic respiratory failure. The patient has not received any significant sedative medicati ons. 3. Recent respiratory failure due to extensive pneumonia. 4. Hypertension. 5. BPH. 6. History of cardiac arrhythmia. RECOMMENDATIONS: Continue current antibiotics and supportive measures. Start BiPAP. If the patien t's status does not improve, he will need to be transferred to ICU and may require intubation. Dictated By: SAMY SANTIAGO/KENRICK Conf#: [id number] DID#: [id number]
[2017-02-18 12:36] LABS: ADD SCAN DIFF NO
[2017-02-18 12:39] LABS: ABNORMAL IP MESSAGE 1; BASOPHILS % 0.3 % (0.0-2.0); EOSINOPHILS % 0.3 % (0.0-7.0); HEMATOCRIT 26.6 % (42.0-52.0); HEMOGLOBIN 7.9 g/dl (14.0-18.0); LYMPHOCYTES # 1.1 10^3/ul (0.8-2.9); LYMPHOCYTES % 15.3 % (15.0-51.0); MEAN CORPUSCULAR HEMOGLOBIN 30.3 pg (29.0-33.0); MEAN CORPUSCULAR HGB CONC 29.7 g/dl (32.0-37.0); MEAN CORPUSCULAR VOLUME 101.9 fl (82.0-101.0); MEAN PLATELET VOLUME 8.8 fl (7.4-10.4); MONOCYTE # 0.6 10^3/ul (0.3-0.9); MONOCYTES % 8.9 % (0.0-11.0); NUCLEATED RED BLOOD CELLS% 0.4 /100WBC (0.0-0.0); PLATELET COUNT 262 10^3/UL (140-415); RED BLOOD COUNT 2.61 10^6/ul (4.70-6.10); RED CELL DISTRIBUTION WIDTH 15.1 % (11.5-14.5); WHITE BLOOD COUNT 7.1 10^3/ul (4.8-10.8)
[2017-02-18 12:54] LABS: CALCIUM 7.9 mg/dl (8.4-10.2); CREATININE 3.33 mg/dl (0.61-1.24); POTASSIUM 3.4 mmol/L (3.5-5.1)
[2017-02-18 12:54] LABS: MAGNESIUM 1.9 mg/dl (1.7-2.5); PHOSPHORUS 4.3 mg/dl (2.5-4.9)
[2017-02-18] MEDS: PIPER-TAZO 2.25 GM (PMX) 50 ML IVPB SCH (13:03)
[2017-02-18 14:49] LABS: AADO2 Arterial 101.9 mmHg (7.0-24.0); Allen Test ACCEPTAB; Arterial Base Excess 3.8 mmol/L (-3.0-3); Arterial COHb 0.2 % (0.0-3.0); Arterial Fraction of Oxyhgb 90.1 % (93.0-99.0); Arterial HCO3 32.3 mmol/L (22.0-26.0); Arterial MetHb 0.4 % (0.0-1.5); Arterial Total Hemglobin 8.9 g/dl (12.0-18.0); MODE MASK - BIPAP
[2017-02-18] MEDS ORDERED: POTASSIUM CHLORIDE (SR) 20 MEQ TAB PO STA (14:54)
[2017-02-18] MEDS: ATORVASTATIN 10 MG TAB PO SCH (20:19)
[2017-02-19] VITALS (28 sets, daily range): BP systolic 110–157; BP diastolic 55–76; PULSE 60–88; RESP 16–19
[2017-02-19] MEDS: PIPER-TAZO 2.25 GM (PMX) 50 ML IVPB SCH ×4 (00:09→21:29)
[2017-02-19] MEDS: METHYLPREDNISOLONE 40 MG INJ IV SCH ×4 (00:10→21:37)
[2017-02-19] MEDS: VANCOMYCIN HCL 250 MG/5ML POSYG PO SCH ×4 (00:12→18:38)
[2017-02-19] MEDS: ALBUTEROL/IPRATROPIUM (NEB) 3 ML AMP HHN SCH ×4 (01:06→23:04)
[2017-02-19] MEDS: METOPROLOL 25 MG TAB PO SCH ×2 (08:52→21:30)
[2017-02-19] MEDS: LACTOBACILLUS RHAMNOSUS CAP PO SCH ×2 (08:52→21:30)
[2017-02-19] MEDS: ASPIRIN (EC) 81 MG TAB PO SCH (08:52)
[2017-02-19] MEDS: MULTIVIT/CA CARB/B CMPLX/FA TAB PO SCH (08:52)
[2017-02-19] MEDS: LISINOPRIL 20 MG TAB PO SCH (08:53)
[2017-02-19] MEDS: AMIODARONE 200 MG TAB PO SCH (08:54)
[2017-02-19] MEDS: BUMETANIDE 1 MG TAB PO SCH (08:55)
[2017-02-19] MEDS: ALLOPURINOL 100 MG TAB PO SCH (08:55)
[2017-02-19] MEDS: LINAGLIPTIN 5 MG TABLET PO SCH (08:55)
[2017-02-19] MEDS: FENOFIBRATE 48 MG TAB PO SCH (08:56)
[2017-02-19] MEDS: FINASTERIDE 5 MG TAB PO SCH (09:00)
[2017-02-19] MEDS: SALMETEROL/FLUTICASONE 250/50 INHA INH SCH ×2 (09:00→21:31)
[2017-02-19] MEDS: FAMOTIDINE 20 MG TAB PO SCH (09:00)
[2017-02-19] MEDS: INSULIN ASPART [NOVOLOG] 3 ML PEN SC SCH ×4 (09:04→21:29)
[2017-02-19] MEDS: CITALOPRAM 20 MG TAB PO SCH (09:04)
[2017-02-19 10:20] LABS: AADO2 Arterial 310.3 mmHg (7.0-24.0); Allen Test ACCEPTAB; Arterial Base Excess 3.2 mmol/L (-3.0-3); Arterial COHb 0.3 % (0.0-3.0); Arterial Fraction of Oxyhgb 98.4 % (93.0-99.0); Arterial HCO3 30.3 mmol/L (22.0-26.0); Arterial MetHb 0.4 % (0.0-1.5); Arterial Total Hemglobin 8.4 g/dl (12.0-18.0); MODE MASK - NRB
--- NOTE | 2017-02-19 11:11 | PN ---
Date/Time of Note Date/Time of Note DATE: 02/19/17 TIME: 10:54 Assessment/Plan VTE Prophylaxis VTE Prophylaxis Intervention: SCD's Lines/Catheters IV Catheter Type (from Nrs): Perm CAth Urinary Cath still in place: No Assessment/Plan Assessment/Plan 71-year-old male with: 1. Acute Hypercapnia on chronic respiratory insufficiency and hypoxemia, back in SR and s/p right thoracentesis with findings of septated small pleural effusion and 40 cc serous fluid sent to lab Much better on BiPAP, s/p HD this AM and ABG much better this AM Continue nebs, steroid and Advair. Continue IV abx, Zosyn Monitor respiratory status 2. Chronic obstructive pulmonary disease, likely to be O2 dependent. ABG better, continue BiPAP and steroids. Pulmonary following. Continue nebulizer treatments and Advair S/p right thoracentesis. 3. Atrial fibrillation with rapid ventricular rate. Back to sinus rhythm. Continue amiodarone and back to outpatient Metoprolol as tolerated. 2D echo done and EF 60% 4. End-stage renal disease, on hemodialysis. HD this AM. Perm Cath in place. Also on Bumex. Dr. Lala/Poullizeth following 5. Hypoglycemic episode, likely due to overmedication. BG stable now. A1c 7.3 and normoglycemic for now. Started on Tradjenta Resume Lantus when BG back up 6. Hypertension. Back on Metoprolol, 2D echocardiogram with EF 60% Add on JAMES inhibitors for afterload reduction later on if needed. 7. Hyperlipidemia. Continue with statin. 8. Diabetic neuropathy. Continue Neurontin, down to 100 mg b.i.d. 9. Major depressive disorder, anxiety disorder. Continue citalopram and Xanax as needed. 10. Chronic Anemia, of chronic disease. Stable Hb so far but seems to be trending down to 7.9 this AM Hopefully getting epo with HD and will resume Renavite Prophylaxis: Sequential compression devices to lower extremity for deep venous thrombosis prophylaxis, ASA. GI prophylaxis with proton pump inhibitors. DISPOSITION: HD yesterday, d/c plan back to SNF when more stable. Monitor respiratory status, BiPAP today. Prognosis remains fair. Full Code. Subjective 24 Hr Interval Summary Free Text/Dictation Patient doing better today On Bipap and steroids along with nebs and abx HD done this AM D/c plan by Friday if respiratory status stabilizes Exam/Review of Systems Vital Signs Vitals Vital Signs Date Time Temp Pulse Resp B/P Pulse Ox O2 Delivery O2 Flow Rate FiO2 02/19/17 08:07 64 02/19/17 07:00 20 02/19/17 05:12 97 40 02/19/17 04:00 98.4 142/64 02/19/17 01:13 5.0 02/18/17 08:40 Nasal Cannula Intake and Output 02/18/17 02/18/17 02/19/17 15:00 23:00 07:00 Intake Total 100 ml 600 ml Output Total 2500 ml Balance 100 ml -1900 ml Exam Constitutional: alert (more ), other (on BiPAP) Respiratory: diminished breath sounds (right lung ), other (good air movement left lung ) Cardiovascular: nl pulses, regular rate and rhythm Gastrointestinal: non-tender, soft Musculoskeletal: nl extremities to inspection Extremities: normal pulses, other (no edema, clubbing or cyanosis ) 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, other (sleeping with BiPAP) Results Result Diagram: 02/18/17 1103 02/18/17 1103 Results 24 hrs Laboratory Tests Test 02/18/17 11:03 02/18/17 11:50 02/18/17 12:36 02/18/17 14:30 White Blood Count 7.1 Red Blood Count 2.61 L Hemoglobin 7.9 L Hematocrit 26.6 L Mean Corpuscular Volume 101.9 H Mean Corpuscular Hemoglobin 30.3 Mean Corpuscular Hemoglobin Concent 29.7 L Red Cell Distribution Width 15.1 H Platelet Count 262 Mean Platelet Volume 8.8 Neutrophils % 70.0 Lymphocytes % 15.3 Monocytes % 8.9 Eosinophils % 0.3 Basophils % 0.3 Nucleated Red Blood Cells % 0.4 H Neutrophils # 5.0 Lymphocytes # 1.1 Monocytes # 0.6 Eosinophils # 0.0 Basophils # 0.0 Nucleated Red Blood Cells # 0.0 Sodium Level 134 L Potassium Level 3.4 L Chloride Level 100 Carbon Dioxide Level 33 H Anion Gap 4 L Blood Urea Nitrogen 27 H Creatinine 3.33 H Glucose Level 152 Calcium Level 7.9 L Phosphorus Level 4.3 Magnesium Level 1.9 Bedside Glucose 149 Blood Gas Specimen Source Blood arterial Arterial Blood Date Drawn 02/18/2017 2:30:54 PM Arterial Blood pH (Temp corrected) 7.244 *L Arterial Blood pCO2 (Temp correct) 76.5 H Arterial Blood pO2 (Temp corrected) 58.7 L Arterial Blood HCO3 32.3 H Arterial Blood Base Excess 3.8 H Arterial Blood Oxygen Saturation 90.6 L Eduard Test ACCEPTAB Arterial Blood Gas Puncture Site Left Radial Arterial Blood Carboxyhemoglobin 0.2 Arterial Blood Methemoglobin 0.4 Blood Gas A-a O2 Differential 101.9 H Oxyhemoglobin Percent 90.1 L Total Hemoglobin 8.9 L Blood Gas Temperature 37.0 Blood Gas Respiration Rate 16.0 Blood Gas Actual Respiration Rate 21 Blood Gas Modality MASK - BIPAP FiO2 35.0 Blood Gas IPAP/EPAP Ratio 12/5 Blood Gas Critical Value Read Back E BUSTER PANTOJA Blood Gas Notified Whom DMITRIYD Blood Gas Notified Time 02/18/2017 2:46:35 PM Test 02/18/17 18:08 02/18/17 20:30 02/19/17 08:14 02/19/17 09:25 Bedside Glucose 192 260 H 197 Blood Gas Specimen Source Blood arterial Arterial Blood Date Drawn 02/19/2017 10:05:33 AM Arterial Blood pH (Temp corrected) 7.302 L Arterial Blood pCO2 (Temp correct) 62.8 H Arterial Blood pO2 (Temp corrected) 339.9 H Arterial Blood HCO3 30.3 H Arterial Blood Base Excess 3.2 H Arterial Blood Oxygen Saturation 99.1 Eduard Test ACCEPTAB Arterial Blood Gas Puncture Site Left Radial Arterial Blood Carboxyhemoglobin 0.3 Arterial Blood Methemoglobin 0.4 Blood Gas A-a O2 Differential 310.3 H Oxyhemoglobin Percent 98.4 Total Hemoglobin 8.4 L Blood Gas Temperature 37.0 Blood Gas Modality MASK - NRB FiO2 100.0 Blood Gas Notified Whom JLD Blood Gas Notified Time 02/19/2017 10:20:27 AM Medications Medications Current Medications Ondansetron HCl (Zofran Inj) 4 mg Q6H PRN IV NAUSEA AND/OR VOMITING Last administered on 02/16/17t 08:31; Admin Dose 4 MG; Start 02/15/17 at 09:30 Acetaminophen (Tylenol Tab) 650 mg Q6H PRN PO PAIN LEVEL 1-3 OR FEVER; Start at 09:30 Acetaminophen/ Hydrocodone Bitart ([place] (5/325)) 1 tab Q6H PRN PO PAIN LEVEL 4 -6 Last administered on 02/18/17 09:18; Admin Dose 1 TAB; Start 02/15/17 at 09: 30 Docusate Sodium (Colace) 100 mg Q12H PRN PO CONSTIPATION; Start 02/15/17 at 09: 30 Magnesium Hydroxide (Milk Of Mag) 30 ml DAILY PRN PO CONSTIPATION; Start at 09:30 Bisacodyl (Dulcolax Supp) 10 mg DAILY PRN [place] CONSTIPATION; Start 02/15/17 at 09 :30 Famotidine (Pepcid) 20 mg DAILY PO Last administered on 02/19/17 09:00; Admin Dose 20 MG; Start 02/15/17 at 10:00 Miscellaneous Information 1 ea NOTE XX ; Start 02/15/17 at 09:30 Glucose (Glutose) 15 gm Q15M PRN PO DECREASED GLUCOSE; Start 02/15/17 at 09:30 Glucose (Glutose) 22.5 gm Q15M PRN PO DECREASED GLUCOSE; Start 02/15/17 at 09: 30 Dextrose (D50w Syringe) 25 ml Q15M PRN IV DECREASED GLUCOSE; Start 02/15/17 at 09:30 Dextrose (D50w Syringe) 50 ml Q15M PRN IV DECREASED GLUCOSE; Start 02/15/17 at 09:30 Glucagon (Glucagen) 1 mg Q15M PRN IM DECREASED GLUCOSE; Start 02/15/17 at 09:30 Glucose (Glutose) 15 gm Q15M PRN BUCCAL DECREASED GLUCOSE; Start 02/15/17 at 09 :30 Amiodarone HCl (Cordarone) 200 mg DAILY PO Last administered on 02/19/17 08:54 ; Admin Dose 200 MG; Start 02/15/17 at 11:00 Lactobacillus Acidophilus/ Rhamnosus (Culturelle) 1 cap BID PO Last administered on 02/19/17 08:52; Admin Dose 1 CAP; Start 02/15/17 at 12:30 Allopurinol (Zyloprim) 100 mg DAILY PO Last administered on 02/19/17 08:55; Admin Dose 100 MG; Start 02/15/17 at 11:00 Finasteride (Proscar) 5 mg DAILY PO Last administered on 02/19/17 09:00; Admin Dose 5 MG; Start 02/15/17 at 11:00 Aspirin (Halfprin) 81 mg DAILY PO Last administered on 02/19/17 08:52; Admin Dose 81 MG; Start 02/15/17 at 11:00 Vancomycin HCl (Vancomycin Oral Syringe) 250 mg Q6 PO Last administered on 02/19 06:08; Admin Dose 250 MG; Start 02/15/17 at 13:00; Stop 02/20/17 at 06:01 Salmeterol Xinafoate/ Fluticasone (Advair 250/50 Diskus) 1 inh BID INH Last administered on 02/18/17 20:19; Admin Dose 1 INH; Start 02/16/17 at 09:30 Citalopram Hydrobromide (Celexa) 10 mg DAILY PO Last administered on 02/19/17 09:04; Admin Dose 10 MG; Start 02/17/17 at 09:00 Alprazolam (Xanax) 0.25 mg Q8H PRN PO ANXIETY Last administered on 02/18/17 20 :18; Admin Dose 0.25 MG; Start 02/16/17 at 12:00 Atorvastatin Calcium (Lipitor) 10 mg QHS PO Last administered on 02/18/17 20: 19; Admin Dose 10 MG; Start 02/16/17 at 21:00 Bumetanide (Bumex) 1 mg DAILY PO Last administered on 02/19/17 08:55; Admin Dose 1 MG; Start 02/16/17 at 12:00 Fenofibrate (Tricor) 48 mg DAILY PO Last administered on 02/19/17 08:56; Admin Dose 48 MG; Start 02/16/17 at 12:00 Lisinopril (Zestril) 20 mg DAILY PO Last administered on 02/19/17 08:53; Admin Dose 20 MG; Start 02/17/17 at 09:00 Multivit/Ca Carb/ B Cmplx/FA/Prenat (Alissa-Supriya) 1 tab DAILY PO Last administered on 02/19/17 08:52; Admin Dose 1 TAB; Start 02/16/17 at 12:00 Sodium Chloride (Deep Sea) 1 spray Q4 PRN NASAL NASAL CONGESTION; Start at 10:30 Metoprolol Tartrate (Lopressor) 25 mg BID PO Last administered on 02/19/17 08: 52; Admin Dose 25 MG; Start 02/17/17 at 21:00 Linagliptin 5 mg 5 mg DAILY PO Last administered on 02/19/17 08:55; Admin Dose 5 MG; Start 02/18/17 at 09:00 Piperacillin Sod/ Tazobactam Sod (Zosyn 2.25gm/ 50ml (Pmx)) 50 ml @ 100 mls/hr Q8 IVPB Last administered on 02/19/17 06:08; Admin Dose 100 MLS/HR; Start at 12:00 Methylprednisolone Sodium Succinate (Solu-Medrol) 40 mg Q8 IV Last administered on 02/19/17 06:08; Admin Dose 40 MG; Start 02/18/17 at 22:00 FARAZ NINO Feb 19, 2017 11:04
[2017-02-19 11:44] LABS: ADD SCAN DIFF NO
[2017-02-19 11:50] LABS: ABNORMAL IP MESSAGE 1; HEMATOCRIT 24.9 % (42.0-52.0); HEMOGLOBIN 7.7 g/dl (14.0-18.0); MEAN CORPUSCULAR HEMOGLOBIN 30.2 pg (29.0-33.0); MEAN CORPUSCULAR HGB CONC 30.9 g/dl (32.0-37.0); MEAN CORPUSCULAR VOLUME 97.6 fl (82.0-101.0); MEAN PLATELET VOLUME 8.9 fl (7.4-10.4); PLATELET COUNT 246 10^3/UL (140-415); RED BLOOD COUNT 2.55 10^6/ul (4.70-6.10); RED CELL DISTRIBUTION WIDTH 14.8 % (11.5-14.5); WHITE BLOOD COUNT 5.1 10^3/ul (4.8-10.8)
[2017-02-19 12:05] LABS: CALCIUM 8.3 mg/dl (8.4-10.2); CREATININE 2.29 mg/dl (0.61-1.24); PHOSPHORUS 2.8 mg/dl (2.5-4.9); POTASSIUM 3.7 mmol/L (3.5-5.1)
[2017-02-19 13:59] LABS: LYMPHOCYTES # 0.3 10^3/ul (0.8-2.9); MONOCYTE # 0.1 10^3/ul (0.3-0.9); MYELOCYTES # 0.1; NEUTROPHIL # 4.4 10^3/ul (1.6-7.5)
[2017-02-19] MEDS ORDERED: NPH, HUMAN INSULIN ISOPHANE 3ML VIAL SC ONE (16:00)
[2017-02-19] MEDS: ATORVASTATIN 10 MG TAB PO SCH (21:30)
[2017-02-19] MEDS: ALPRAZOLAM 0.25 MG TAB PO PRN (21:30)
[2017-02-20] VITALS (17 sets, daily range): BP systolic 138–152; BP diastolic 62–72; PULSE 62–90; RESP 16–18
[2017-02-20] MEDS: HYDROCODONE/APAP (5/325) TAB PO PRN ×2 (01:32→22:34)
[2017-02-20] MEDS: VANCOMYCIN HCL 250 MG/5ML POSYG PO SCH ×2 (01:33→07:03)
[2017-02-20] MEDS: PIPER-TAZO 2.25 GM (PMX) 50 ML IVPB SCH ×3 (07:03→22:34)
[2017-02-20] MEDS: METHYLPREDNISOLONE 40 MG INJ IV SCH ×3 (07:03→20:55)
[2017-02-20] MEDS: ALBUTEROL/IPRATROPIUM (NEB) 3 ML AMP HHN SCH ×2 (07:25→16:50)
[2017-02-20] MEDS: SALMETEROL/FLUTICASONE 250/50 INHA INH SCH ×2 (08:43→20:15)
[2017-02-20] MEDS: LISINOPRIL 20 MG TAB PO SCH (08:45)
[2017-02-20] MEDS: INSULIN ASPART [NOVOLOG] 3 ML PEN SC SCH ×4 (08:45→20:49)
[2017-02-20] MEDS: ASPIRIN (EC) 81 MG TAB PO SCH (08:45)
[2017-02-20] MEDS: CITALOPRAM 20 MG TAB PO SCH (08:45)
[2017-02-20] MEDS: MULTIVIT/CA CARB/B CMPLX/FA TAB PO SCH (08:45)
[2017-02-20] MEDS: LACTOBACILLUS RHAMNOSUS CAP PO SCH ×2 (08:46→20:16)
[2017-02-20] MEDS: FINASTERIDE 5 MG TAB PO SCH (08:46)
[2017-02-20] MEDS: LINAGLIPTIN 5 MG TABLET PO SCH (08:46)
[2017-02-20] MEDS: AMIODARONE 200 MG TAB PO SCH (08:46)
[2017-02-20] MEDS: METOPROLOL 25 MG TAB PO SCH ×2 (08:46→20:17)
[2017-02-20] MEDS: FAMOTIDINE 20 MG TAB PO SCH (08:46)
[2017-02-20] MEDS: BUMETANIDE 1 MG TAB PO SCH (08:46)
[2017-02-20] MEDS: ALLOPURINOL 100 MG TAB PO SCH (08:47)
[2017-02-20] MEDS: FENOFIBRATE 48 MG TAB PO SCH (08:47)
--- NOTE | 2017-02-20 10:55 | PN ---
Date/Time of Note Date/Time of Note DATE: 02/20/17 TIME: 10:43 Assessment/Plan VTE Prophylaxis VTE Prophylaxis Intervention: SCD's Lines/Catheters IV [facility] permacath Urinary Cath still in place: No Assessment/Plan Assessment/Plan 71-year-old male with: 1. Acute Hypercapnia on chronic respiratory insufficiency and hypoxemia, back in SR and s/p right thoracentesis with findings of septated small pleural effusion and 40 cc serous fluid sent to lab Much better on BiPAP and plan to change to Qhs BiPAP Continue nebs, steroid to be changed to po by AM and Advair. Continue IV abx, Zosyn Monitor respiratory status 2. Chronic obstructive pulmonary disease, likely to be O2 dependent. Pulmonary following. Continue nebulizer treatments and Advair, steroids, BiPAP at night S/p right thoracentesis. 3. Atrial fibrillation with rapid ventricular rate. Back to sinus rhythm. Continue amiodarone and back to outpatient Metoprolol as tolerated. 2D echo done and EF 60% 4. End-stage renal disease, on hemodialysis. HD this AM. Perm Cath in place. Also on Bumex. Dr. Lala/Sujatha following 5. Hypoglycemic episode, likely due to overmedication. A1c 7.3 BG stable and BG back up so will resume Lantus today. Continue Tradjenta . 6. Hypertension. Back on Metoprolol, 2D echocardiogram with EF 60% . Add on JAMES inhibitors for afterload reduction later on if needed. 7. Hyperlipidemia. Continue with statin. 8. Diabetic neuropathy. Continue Neurontin, down to 100 mg b.i.d. 9. Major depressive disorder, anxiety disorder. Continue citalopram and Xanax as needed. 10. Chronic Anemia, of chronic disease. Stable Hb so far but seems to be trending. Plan for pRBC with HD in AM if Hb<8.0 still. Hopefully getting epo with HD and will resume Renavite Prophylaxis: Sequential compression devices to lower extremity for deep venous thrombosis prophylaxis, ASA. GI prophylaxis with proton pump inhibitors. DISPOSITION: HD yesterday, d/c plan back to SNF when more stable by tomorrow after HD. Monitor respiratory status, BiPAP qhs. Prognosis remains fair. Full Code. Subjective 24 Hr Interval Summary Free Text/Dictation Patient doing Ok off BiPAP this AM Labs pending in AM with possible pRBC in AM BG stable Exam/Review of Systems Vital Signs Vitals Vital Signs Date Time Temp Pulse Resp B/P Pulse Ox O2 Delivery O2 Flow Rate FiO2 02/20/17 08:51 62 02/20/17 07:31 97.8 17 152/72 94 02/20/17 07:25 40 02/19/17 12:18 5.0 02/18/17 08:40 Nasal Cannula Intake and Output 02/19/17 02/19/17 02/20/17 15:00 23:00 07:00 Intake Total 200 ml Balance 200 ml Exam Constitutional: other (sleeping ), well developed Respiratory: diminished breath sounds (right lung ), normal air movement Cardiovascular: nl pulses, regular rate and rhythm Gastrointestinal: non-tender, soft Musculoskeletal: nl extremities to inspection Extremities: normal pulses, other (no edema, clubbing or cyanosis ) 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, nl mental status Results Result Diagram: 02/19/17 1120 02/19/17 1120 Results 24 hrs Laboratory Tests Test 02/19/17 11:20 02/19/17 12:04 02/19/17 17:03 02/19/17 21:25 White Blood Count 5.1 # Red Blood Count 2.55 L Hemoglobin 7.7 L Hematocrit 24.9 L Mean Corpuscular Volume 97.6 Mean Corpuscular Hemoglobin 30.2 Mean Corpuscular Hemoglobin Concent 30.9 L Red Cell Distribution Width 14.8 H Platelet Count 246 Mean Platelet Volume 8.9 Neutrophils % 87.0 H Lymphocytes % 6.0 L Monocytes % 2.0 Eosinophils % Basophils % Metamyelocytes % 2.0 H Myelocytes % 1.0 H Promyelocytes % 2.0 H Nucleated Red Blood Cells % Neutrophils # 4.4 Lymphocytes # 0.3 L Monocytes # 0.1 L Eosinophils # Basophils # Metamyelocytes # 0.1 Myelocytes # 0.1 Promyelocytes # 0.1 Nucleated Red Blood Cells # Differential Comment MANUAL DIFF Sodium Level 140 Potassium Level 3.7 Chloride Level 107 Carbon Dioxide Level 31 Anion Gap 6 L Blood Urea Nitrogen 19 Creatinine 2.29 #H Glucose Level 291 #H Calcium Level 8.3 L Phosphorus Level 2.8 Magnesium Level 2.0 Bedside Glucose 278 H 244 H 299 H Test 02/20/17 01:54 02/20/17 08:12 4/27/17 08:46 Bedside Glucose 259 H 236 H Lab Scanned Report REFERENCE LAB Medications Medications Current Medications Ondansetron HCl (Zofran Inj) 4 mg Q6H PRN IV NAUSEA AND/OR VOMITING Last administered on 02/16/17 08:31; Admin Dose 4 MG; Start 02/15/17 at 09:30 Acetaminophen (Tylenol Tab) 650 mg Q6H PRN PO PAIN LEVEL 1-3 OR FEVER; Start at 09:30 Acetaminophen/ Hydrocodone Bitart ([place] (5/325)) 1 tab Q6H PRN PO PAIN LEVEL 4 -6 Last administered on 02/20/17 01:32; Admin Dose 1 TAB; Start 02/15/17 at 09: 30 Docusate Sodium (Colace) 100 mg Q12H PRN PO CONSTIPATION; Start 02/15/17 at 09: 30 Magnesium Hydroxide (Milk Of Mag) 30 ml DAILY PRN PO CONSTIPATION; Start at 09:30 Bisacodyl (Dulcolax Supp) 10 mg DAILY PRN [place] CONSTIPATION; Start 02/15/17 at 09 :30 Famotidine (Pepcid) 20 mg DAILY PO Last administered on 02/20/17 08:46; Admin Dose 20 MG; Start 02/15/17 at 10:00 Miscellaneous Information 1 ea NOTE XX ; Start 02/15/17 at 09:30 Glucose (Glutose) 15 gm Q15M PRN PO DECREASED GLUCOSE; Start 02/15/17 at 09:30 Glucose (Glutose) 22.5 gm Q15M PRN PO DECREASED GLUCOSE; Start 02/15/17 at 09: 30 Dextrose (D50w Syringe) 25 ml Q15M PRN IV DECREASED GLUCOSE; Start 02/15/17 at 09:30 Dextrose (D50w Syringe) 50 ml Q15M PRN IV DECREASED GLUCOSE; Start 02/15/17 at 09:30 Glucagon (Glucagen) 1 mg Q15M PRN IM DECREASED GLUCOSE; Start 02/15/17 at 09:30 Glucose (Glutose) 15 gm Q15M PRN BUCCAL DECREASED GLUCOSE; Start 02/15/17 at 09 :30 Amiodarone HCl (Cordarone) 200 mg DAILY PO Last administered on 02/20/17 08:46 ; Admin Dose 200 MG; Start 02/15/17 at 11:00 Lactobacillus Acidophilus/ Rhamnosus (Culturelle) 1 cap BID PO Last administered on 02/20/17 08:46; Admin Dose 1 CAP; Start 02/15/17 at 12:30 Allopurinol (Zyloprim) 100 mg DAILY PO Last administered on 02/20/17 08:47; Admin Dose 100 MG; Start 02/15/17 at 11:00 Finasteride (Proscar) 5 mg DAILY PO Last administered on 02/20/17 08:46; Admin Dose 5 MG; Start 02/15/17 at 11:00 Aspirin (Halfprin) 81 mg DAILY PO Last administered on 02/20/17 08:45; Admin Dose 81 MG; Start 02/15/17 at 11:00 Salmeterol Xinafoate/ Fluticasone (Advair 250/50 Diskus) 1 inh BID INH Last administered on 02/20/17 08:43; Admin Dose 1 INH; Start 02/16/17 at 09:30 Citalopram Hydrobromide (Celexa) 10 mg DAILY PO Last administered on 02/20/17 08:45; Admin Dose 10 MG; Start 02/17/17 at 09:00 Alprazolam (Xanax) 0.25 mg Q8H PRN PO ANXIETY Last administered on 02/19/17 21 :30; Admin Dose 0.25 MG; Start 02/16/17 at 12:00 Atorvastatin Calcium (Lipitor) 10 mg QHS PO Last administered on 02/19/17 21: 30; Admin Dose 10 MG; Start 02/16/17 at 21:00 Bumetanide (Bumex) 1 mg DAILY PO Last administered on 02/20/17 08:46; Admin Dose 1 MG; Start 02/16/17 at 12:00 Fenofibrate (Tricor) 48 mg DAILY PO Last administered on 02/20/17 08:47; Admin Dose 48 MG; Start 02/16/17 at 12:00 Lisinopril (Zestril) 20 mg DAILY PO Last administered on 02/20/17 08:45; Admin Dose 20 MG; Start 02/17/17 at 09:00 Multivit/Ca Carb/ B Cmplx/FA/Prenat (Alissa-Supriya) 1 tab DAILY PO Last administered on 02/20/17 08:45; Admin Dose 1 TAB; Start 02/16/17 at 12:00 Sodium Chloride (Deep Sea) 1 spray Q4 PRN NASAL NASAL CONGESTION; Start at 10:30 Metoprolol Tartrate (Lopressor) 25 mg BID PO Last administered on 02/20/17 08: 46; Admin Dose 25 MG; Start 02/17/17 at 21:00 Linagliptin 5 mg 5 mg DAILY PO Last administered on 02/20/17 08:46; Admin Dose 5 MG; Start 02/18/17 at 09:00 Piperacillin Sod/ Tazobactam Sod (Zosyn 2.25gm/ 50ml (Pmx)) 50 ml @ 100 mls/hr Q8 IVPB Last administered on 02/20/17 07:03; Admin Dose 100 MLS/HR; Start at 12:00 Methylprednisolone Sodium Succinate (Solu-Medrol) 40 mg Q8 IV Last administered on 02/20/17 07:03; Admin Dose 40 MG; Start 02/18/17 at 22:00 FARAZ NINO Feb 20, 2017 10:55
--- NOTE | 2017-02-20 13:09 | CONS ---
Date/Time of Note Date/Time of Note DATE: 02/20/17 TIME: 13:07 Assessment/Plan Assessment/Plan Additional Assessment/Plan 71 yo Male with 1) SOB 2) Consolidation 3) Plerual effusion 4) ESRD 5) DM with Renal complication 6) COPD 7) Chronic Liver Disease Next HD tomorrow. Cont HD MWF schedule Epogen with HD MWF may need PRBC if <7.5 Will cont to closely follow along with you. Thank you for the opportunity to paticipate in the care of Mr Davies. Consultation Date/Type/Reason Admit Date/Time Feb 15, 2017 at 04:37 Type of Consultation: Renal Referring Provider: FARAZ NINO 24 HR Interval Summary Free Text/Dictation S/p HD yesterday Exam/Review of Systems Vital Signs Vitals Vital Signs Date Time Temp Pulse Resp B/P Pulse Ox O2 Delivery O2 Flow Rate FiO2 02/20/17 12:09 67 02/20/17 11:53 98.0 16 140/65 98 02/20/17 07:25 40 02/19/17 12:18 5.0 02/18/17 08:40 Nasal Cannula Intake and Output 02/19/17 02/19/17 02/20/17 15:00 23:00 07:00 Intake Total 200 ml Balance 200 ml Exam Constitutional: No distress ENMT: mucosa pink and moist Neck: No jvd Respiratory: No crackles/rales Cardiovascular: regular rate and rhythm, No edema Gastrointestinal: non-tender, soft Results Result Diagram: 02/19/17 1120 02/19/17 1120 Results 24 hrs Laboratory Tests Test 02/19/17 17:03 02/19/17 21:25 02/20/17 01:54 02/20/17 08:12 Bedside Glucose 244 H 299 H 259 H 236 H Test 02/20/17 08:46 02/20/17 12:03 Lab Scanned Report REFERENCE LAB Bedside Glucose 269 H Medications Medications Current Medications Ondansetron HCl (Zofran Inj) 4 mg Q6H PRN IV NAUSEA AND/OR VOMITING Last administered on 02/16/17t 08:31; Admin Dose 4 MG; Start 02/15/17 at 09:30 Acetaminophen (Tylenol Tab) 650 mg Q6H PRN PO PAIN LEVEL 1-3 OR FEVER; Start at 09:30 Acetaminophen/ Hydrocodone Bitart ([place] (5/325)) 1 tab Q6H PRN PO PAIN LEVEL 4 -6 Last administered on 02/20/17 01:32; Admin Dose 1 TAB; Start 02/15/17 at 09: 30 Docusate Sodium (Colace) 100 mg Q12H PRN PO CONSTIPATION; Start 02/15/17 at 09: 30 Magnesium Hydroxide (Milk Of Mag) 30 ml DAILY PRN PO CONSTIPATION; Start at 09:30 Bisacodyl (Dulcolax Supp) 10 mg DAILY PRN [place] CONSTIPATION; Start 02/15/17 at 09 :30 Famotidine (Pepcid) 20 mg DAILY PO Last administered on 02/20/17 08:46; Admin Dose 20 MG; Start 02/15/17 at 10:00 Miscellaneous Information 1 ea NOTE XX ; Start 02/15/17 at 09:30 Glucose (Glutose) 15 gm Q15M PRN PO DECREASED GLUCOSE; Start 02/15/17 at 09:30 Glucose (Glutose) 22.5 gm Q15M PRN PO DECREASED GLUCOSE; Start 02/15/17 at 09: 30 Dextrose (D50w Syringe) 25 ml Q15M PRN IV DECREASED GLUCOSE; Start 02/15/17 at 09:30 Dextrose (D50w Syringe) 50 ml Q15M PRN IV DECREASED GLUCOSE; Start 02/15/17 at 09:30 Glucagon (Glucagen) 1 mg Q15M PRN IM DECREASED GLUCOSE; Start 02/15/17 at 09:30 Glucose (Glutose) 15 gm Q15M PRN BUCCAL DECREASED GLUCOSE; Start 02/15/17 at 09 :30 Amiodarone HCl (Cordarone) 200 mg DAILY PO Last administered on 02/20/17 08:46 ; Admin Dose 200 MG; Start 02/15/17 at 11:00 Lactobacillus Acidophilus/ Rhamnosus (Culturelle) 1 cap BID PO Last administered on 02/20/17 08:46; Admin Dose 1 CAP; Start 02/15/17 at 12:30 Allopurinol (Zyloprim) 100 mg DAILY PO Last administered on 02/20/17 08:47; Admin Dose 100 MG; Start 02/15/17 at 11:00 Finasteride (Proscar) 5 mg DAILY PO Last administered on 02/20/17 08:46; Admin Dose 5 MG; Start 02/15/17 at 11:00 Aspirin (Halfprin) 81 mg DAILY PO Last administered on 02/20/17 08:45; Admin Dose 81 MG; Start 02/15/17 at 11:00 Salmeterol Xinafoate/ Fluticasone (Advair 250/50 Diskus) 1 inh BID INH Last administered on 02/20/17 08:43; Admin Dose 1 INH; Start 02/16/17 at 09:30 Citalopram Hydrobromide (Celexa) 10 mg DAILY PO Last administered on 02/20/17 08:45; Admin Dose 10 MG; Start 02/17/17 at 09:00 Alprazolam (Xanax) 0.25 mg Q8H PRN PO ANXIETY Last administered on 02/19/17 21 :30; Admin Dose 0.25 MG; Start 02/16/17 at 12:00 Atorvastatin Calcium (Lipitor) 10 mg QHS PO Last administered on 02/19/17 21: 30; Admin Dose 10 MG; Start 02/16/17 at 21:00 Bumetanide (Bumex) 1 mg DAILY PO Last administered on 02/20/17 08:46; Admin Dose 1 MG; Start 02/16/17 at 12:00 Fenofibrate (Tricor) 48 mg DAILY PO Last administered on 02/20/17 08:47; Admin Dose 48 MG; Start 02/16/17 at 12:00 Lisinopril (Zestril) 20 mg DAILY PO Last administered on 02/20/17 08:45; Admin Dose 20 MG; Start 02/17/17 at 09:00 Multivit/Ca Carb/ B Cmplx/FA/Prenat (Alissa-Supriya) 1 tab DAILY PO Last administered on 02/20/17 08:45; Admin Dose 1 TAB; Start 02/16/17 at 12:00 Sodium Chloride (Deep Sea) 1 spray Q4 PRN NASAL NASAL CONGESTION; Start at 10:30 Metoprolol Tartrate (Lopressor) 25 mg BID PO Last administered on 02/20/17 08: 46; Admin Dose 25 MG; Start 02/17/17 at 21:00 Linagliptin 5 mg 5 mg DAILY PO Last administered on 02/20/17 08:46; Admin Dose 5 MG; Start 02/18/17 at 09:00 Piperacillin Sod/ Tazobactam Sod (Zosyn 2.25gm/ 50ml (Pmx)) 50 ml @ 100 mls/hr Q8 IVPB Last administered on 02/20/17 07:03; Admin Dose 100 MLS/HR; Start at 12:00 Methylprednisolone Sodium Succinate (Solu-Medrol) 40 mg Q8 IV Last administered on 02/20/17 07:03; Admin Dose 40 MG; Start 02/18/17 at 22:00 Insulin Glargine (Lantus) 15 unit DAILY@08 SC ; Start 02/20/17 at 12:00 MEHDI HENSON MD Feb 20, 2017 13:08
[2017-02-20] MEDS: INSULIN GLARGINE [LANtus] 3 ML PEN SC SCH (13:23)
[2017-02-20] MEDS: ALPRAZOLAM 0.25 MG TAB PO PRN (20:16)
[2017-02-20] MEDS: ATORVASTATIN 10 MG TAB PO SCH (20:16)
[2017-02-21] VITALS (22 sets, daily range): BP systolic 109–149; BP diastolic 55–71; PULSE 60–78; RESP 16–20
[2017-02-21] MEDS: ALBUTEROL/IPRATROPIUM (NEB) 3 ML AMP HHN SCH ×4 (00:16→23:26)
[2017-02-21] MEDS: ALPRAZOLAM 0.25 MG TAB PO PRN ×2 (05:11→21:10)
[2017-02-21] MEDS: METHYLPREDNISOLONE 40 MG INJ IV SCH (06:00)
[2017-02-21] MEDS: PIPER-TAZO 2.25 GM (PMX) 50 ML IVPB SCH ×3 (06:00→21:24)
[2017-02-21 07:17] LABS: ADD SCAN DIFF NO
[2017-02-21 07:19] LABS: ABNORMAL IP MESSAGE 1; HEMATOCRIT 20.1 % (42.0-52.0); MEAN CORPUSCULAR HEMOGLOBIN 30.1 pg (29.0-33.0); MEAN CORPUSCULAR HGB CONC 30.8 g/dl (32.0-37.0); MEAN CORPUSCULAR VOLUME 97.6 fl (82.0-101.0); MEAN PLATELET VOLUME 9.6 fl (7.4-10.4); PLATELET COUNT 213 10^3/UL (140-415); RED BLOOD COUNT 2.06 10^6/ul (4.70-6.10); RED CELL DISTRIBUTION WIDTH 15.4 % (11.5-14.5); WHITE BLOOD COUNT 7.2 10^3/ul (4.8-10.8)
[2017-02-21 07:33] LABS: MAGNESIUM 2.1 mg/dl (1.7-2.5); PHOSPHORUS 3.2 mg/dl (2.5-4.9)
[2017-02-21 07:40] LABS: CALCIUM 7.6 mg/dl (8.4-10.2); CREATININE 4.52 mg/dl (0.61-1.24)
[2017-02-21 08:11] LABS: HEMOGLOBIN 6.2 g/dl (14.0-18.0)
[2017-02-21] MEDS: INSULIN GLARGINE [LANtus] 3 ML PEN SC SCH (08:44)
[2017-02-21] MEDS: FAMOTIDINE 20 MG TAB PO SCH (08:45)
[2017-02-21] MEDS: SALMETEROL/FLUTICASONE 250/50 INHA INH SCH ×2 (08:45→21:10)
[2017-02-21] MEDS: INSULIN ASPART [NOVOLOG] 3 ML PEN SC SCH ×4 (08:45→21:13)
[2017-02-21] MEDS: FINASTERIDE 5 MG TAB PO SCH (08:46)
[2017-02-21] MEDS: AMIODARONE 200 MG TAB PO SCH (08:46)
[2017-02-21] MEDS: ASPIRIN (EC) 81 MG TAB PO SCH (08:46)
[2017-02-21] MEDS: ALLOPURINOL 100 MG TAB PO SCH (08:46)
[2017-02-21] MEDS: CITALOPRAM 20 MG TAB PO SCH (08:46)
[2017-02-21] MEDS: METOPROLOL 25 MG TAB PO SCH ×2 (08:47→21:11)
[2017-02-21] MEDS: LACTOBACILLUS RHAMNOSUS CAP PO SCH ×2 (08:47→21:10)
[2017-02-21] MEDS: LINAGLIPTIN 5 MG TABLET PO SCH (08:47)
[2017-02-21] MEDS: MULTIVIT/CA CARB/B CMPLX/FA TAB PO SCH (08:47)
[2017-02-21] MEDS: FENOFIBRATE 48 MG TAB PO SCH (08:47)
[2017-02-21] MEDS: BUMETANIDE 1 MG TAB PO SCH (08:47)
[2017-02-21] MEDS: LISINOPRIL 20 MG TAB PO SCH (08:48)
[2017-02-21 09:52] LABS: LYMPHOCYTES # 1.2 10^3/ul (0.8-2.9); MONOCYTE # 0.4 10^3/ul (0.3-0.9)
--- NOTE | 2017-02-21 10:06 | PN ---
Date/Time of Note Date/Time of Note DATE: 02/21/17 TIME: 09:48 Assessment/Plan VTE Prophylaxis VTE Prophylaxis Intervention: SCD's Lines/Catheters IV Catheter Type (from Nrs): permacath Urinary Cath still in place: No Assessment/Plan Assessment/Plan 71-year-old male with: 1. Improved Acute Hypercapnia on chronic respiratory insufficiency and hypoxemia , back in SR and s/p right thoracentesis with findings of septated small pleural effusion and 40 cc serous fluid sent to lab Much better on BiPAP at night and up to 3L NC during the day Change steroids to po and continue current Rx Continue IV abx, Zosyn Monitor respiratory status 2. Chronic obstructive pulmonary disease, likely to be O2 dependent. Pulmonary following. Continue nebulizer treatments and Advair, steroids, BiPAP at night S/p right thoracentesis. 3. Atrial fibrillation with rapid ventricular rate. Back to sinus rhythm. Continue amiodarone and back to outpatient Metoprolol as tolerated. 2D echo done and EF 60% 4. End-stage renal disease, on hemodialysis. HD this AM. Perm Cath in place. Also on Bumex. Dr. Lala/Sujatha following 5. Hypoglycemic episode, likely due to overmedication. A1c 7.3 BG stable and BG back on Lantus today. Continue Tradjenta . 6. Hypertension. Back on Metoprolol, 2D echocardiogram with EF 60% . Back on Lisinopril too. 7. Hyperlipidemia. Continue with statin. 8. Diabetic neuropathy. Continue Neurontin, down to 100 mg b.i.d. 9. Major depressive disorder, anxiety disorder. Continue citalopram and Xanax as needed. 10. Chronic Anemia, of chronic disease. Hb <7.5 this AM so plan for 2 units pRBC since Hb down to 6.2. Likely d/c back to SNF in AM with arrangement for BiPAP at night at SNF Continue epo with HD and Renavite Prophylaxis: Sequential compression devices to lower extremity for deep venous thrombosis prophylaxis, ASA. GI prophylaxis with proton pump inhibitors. DISPOSITION: HD this AM already and plan for pRBC this AM and d/c plan by the AM back to SNF. Monitor respiratory status, BiPAP qhs. Prognosis remains fair. Full Code. Subjective 24 Hr Interval Summary Free Text/Dictation Patient tired post HD but stable Plan for 2 units pRBC today and d/c plan to SNF by AM with BiPAP at night Exam/Review of Systems Vital Signs Vitals Vital Signs Date Time Temp Pulse Resp B/P Pulse Ox O2 Delivery O2 Flow Rate FiO2 02/21/17 08:19 60 02/21/17 07:36 97.8 18 117/67 97 02/21/17 02:49 4.0 02/21/17 00:30 40 02/21/17 00:16 Nasal Cannula Intake and Output 02/20/17 02/20/17 02/21/17 14:59 22:59 06:59 Intake Total 350 ml Balance 350 ml Exam Constitutional: alert, frail, oriented Respiratory: diminished breath sounds (right lung chronic, good air movement left lung ), other (good air movement ) Cardiovascular: nl pulses, regular rate and rhythm Gastrointestinal: non-tender, soft Musculoskeletal: nl extremities to inspection Extremities: normal pulses, other (no edema, clubbing or cyanosis ) Neurological: [employer] II-XII intact, lethargic Results Result Diagram: 02/21/17 0655 02/21/17 0655 Results 24 hrs Laboratory Tests Test 02/20/17 12:03 02/20/17 17:18 02/20/17 20:32 02/21/17 01:12 Bedside Glucose 269 H 281 H 268 H 279 H Test 02/21/17 06:55 02/21/17 08:07 White Blood Count 7.2 # Red Blood Count 2.06 L Hemoglobin 6.2 *L Hematocrit 20.1 L Mean Corpuscular Volume 97.6 Mean Corpuscular Hemoglobin 30.1 Mean Corpuscular Hemoglobin Concent 30.8 L Red Cell Distribution Width 15.4 H Platelet Count 213 Mean Platelet Volume 9.6 Neutrophils % 81.3 H Lymphocytes % 8.1 L Monocytes % 4.9 Eosinophils % 0.0 Basophils % 0.0 Nucleated Red Blood Cells % 0.3 H Neutrophils # 5.8 Lymphocytes # 0.6 L Monocytes # 0.4 Eosinophils # 0.0 Basophils # 0.0 Nucleated Red Blood Cells # 0.0 Sodium Level 132 L Potassium Level 4.0 Chloride Level 101 Carbon Dioxide Level 27 Anion Gap 8 Blood Urea Nitrogen 66 #H Creatinine 4.52 #H Glucose Level 229 H Calcium Level 7.6 L Phosphorus Level 3.2 Magnesium Level 2.1 Bedside Glucose 206 Medications Medications Current Medications Ondansetron HCl (Zofran Inj) 4 mg Q6H PRN IV NAUSEA AND/OR VOMITING Last administered on 02/16/17 08:31; Admin Dose 4 MG; Start 02/15/17 at 09:30 Acetaminophen (Tylenol Tab) 650 mg Q6H PRN PO PAIN LEVEL 1-3 OR FEVER; Start at 09:30 Acetaminophen/ Hydrocodone Bitart ([place] (5/325)) 1 tab Q6H PRN PO PAIN LEVEL 4 -6 Last administered on 02/20/17 22:34; Admin Dose 1 TAB; Start 02/15/17 at 09: 30 Docusate Sodium (Colace) 100 mg Q12H PRN PO CONSTIPATION; Start 02/15/17 at 09: 30 Magnesium Hydroxide (Milk Of Mag) 30 ml DAILY PRN PO CONSTIPATION; Start at 09:30 Bisacodyl (Dulcolax Supp) 10 mg DAILY PRN [place] CONSTIPATION; Start 02/15/17 at 09 :30 Famotidine (Pepcid) 20 mg DAILY PO Last administered on 02/21/17 08:45; Admin Dose 20 MG; Start 02/15/17 at 10:00 Miscellaneous Information 1 ea NOTE XX ; Start 02/15/17 at 09:30 Glucose (Glutose) 15 gm Q15M PRN PO DECREASED GLUCOSE; Start 02/15/17 at 09:30 Glucose (Glutose) 22.5 gm Q15M PRN PO DECREASED GLUCOSE; Start 02/15/17 at 09: 30 Dextrose (D50w Syringe) 25 ml Q15M PRN IV DECREASED GLUCOSE; Start 02/15/17 at 09:30 Dextrose (D50w Syringe) 50 ml Q15M PRN IV DECREASED GLUCOSE; Start 02/15/17 at 09:30 Glucagon (Glucagen) 1 mg Q15M PRN IM DECREASED GLUCOSE; Start 02/15/17 at 09:30 Glucose (Glutose) 15 gm Q15M PRN BUCCAL DECREASED GLUCOSE; Start 02/15/17 at 09 :30 Amiodarone HCl (Cordarone) 200 mg DAILY PO Last administered on 02/21/17 08:46 ; Admin Dose 200 MG; Start 02/15/17 at 11:00 Lactobacillus Acidophilus/ Rhamnosus (Culturelle) 1 cap BID PO Last administered on 02/21/17 08:47; Admin Dose 1 CAP; Start 02/15/17 at 12:30 Allopurinol (Zyloprim) 100 mg DAILY PO Last administered on 02/21/17 08:46; Admin Dose 100 MG; Start 02/15/17 at 11:00 Finasteride (Proscar) 5 mg DAILY PO Last administered on 02/21/17 08:46; Admin Dose 5 MG; Start 02/15/17 at 11:00 Aspirin (Halfprin) 81 mg DAILY PO Last administered on 02/21/17 08:46; Admin Dose 81 MG; Start 02/15/17 at 11:00 Salmeterol Xinafoate/ Fluticasone (Advair 250/50 Diskus) 1 inh BID INH Last administered on 02/21/17 08:45; Admin Dose 1 INH; Start 02/16/17 at 09:30 Citalopram Hydrobromide (Celexa) 10 mg DAILY PO Last administered on 02/21/17 08:46; Admin Dose 10 MG; Start 02/17/17 at 09:00 Alprazolam (Xanax) 0.25 mg Q8H PRN PO ANXIETY Last administered on 02/21/17 05 :11; Admin Dose 0.25 MG; Start 02/16/17 at 12:00 Atorvastatin Calcium (Lipitor) 10 mg QHS PO Last administered on 02/20/17 20: 16; Admin Dose 10 MG; Start 02/16/17 at 21:00 Bumetanide (Bumex) 1 mg DAILY PO Last administered on 02/21/17 08:47; Admin Dose 1 MG; Start 02/16/17 at 12:00 Fenofibrate (Tricor) 48 mg DAILY PO Last administered on 02/21/17 08:47; Admin Dose 48 MG; Start 02/16/17 at 12:00 Lisinopril (Zestril) 20 mg DAILY PO Last administered on 02/20/17 08:45; Admin Dose 20 MG; Start 02/17/17 at 09:00 Multivit/Ca Carb/ B Cmplx/FA/Prenat (Alissa-Supriya) 1 tab DAILY PO Last administered on 02/21/17 08:47; Admin Dose 1 TAB; Start 02/16/17 at 12:00 Sodium Chloride (Deep Sea) 1 spray Q4 PRN NASAL NASAL CONGESTION; Start at 10:30 Metoprolol Tartrate (Lopressor) 25 mg BID PO Last administered on 02/20/17 20: 17; Admin Dose 25 MG; Start 02/17/17 at 21:00 Linagliptin 5 mg 5 mg DAILY PO Last administered on 02/21/17 08:47; Admin Dose 5 MG; Start 02/18/17 at 09:00 Piperacillin Sod/ Tazobactam Sod (Zosyn 2.25gm/ 50ml (Pmx)) 50 ml @ 100 mls/hr Q8 IVPB Last administered on 02/21/17 06:00; Admin Dose 100 MLS/HR; Start at 12:00 Methylprednisolone Sodium Succinate (Solu-Medrol) 40 mg Q8 IV Last administered on 02/21/17 06:00; Admin Dose 40 MG; Start 02/18/17 at 22:00 Insulin Glargine (Lantus) 15 unit DAILY@08 SC Last administered on 02/21/17 08 :44; Admin Dose 15 UNIT; Start 02/20/17 at 12:00 Epoetin Jamie (Epogen (Esrd)) 6,000 units MoWeFr@17 SC ; Start 02/21/17 at 17:00 FARAZ NINO Feb 21, 2017 10:00
--- NOTE | 2017-02-21 10:30 | PDOCDIS ---
Discharge Instructions CONDITION Patient Condition: Stable HOME CARE INSTRUCTIONS: Special Diet: RENAL ACTIVITY: Activity Restrictions: Slowly Increase Activity FOLLOW UP/APPOINTMENTS Appointments Follow up with outpatient HD Friday Follow up with SNF physician FARAZ NINO Feb 21, 2017 10:30
[2017-02-21] MEDS: predniSONE 20 MG TAB PO SCH (11:01)
--- NOTE | 2017-02-21 11:21 | CONS ---
Date/Time of Note Date/Time of Note DATE: 02/21/17 TIME: 11:14 Assessment/Plan Assessment/Plan Additional Assessment/Plan 71 yo Male with 1) SOB 2) Consolidation 3) Pleural effusion 4) ESRD 5) DM with Renal complication 6) COPD 7) Chronic Liver Disease 8) Anemia, Chronic Epogen with HD MWF may need PRBC if <7.5 Repeat H/Hct, S/p HD Outpt HD TTS. Will cont to closely follow along with you. Thank you for the opportunity to paticipate in the care of Mr Davies. Consultation Date/Type/Reason Admit Date/Time Feb 15, 2017 at 04:37 Type of Consultation: Renal Referring Provider: FARAZ NINO 24 HR Interval Summary Free Text/Dictation S/p HD yesterday, Possible plan for PRBC. Also DC planning. Constitutional: requiring O2 Exam/Review of Systems Vital Signs Vitals Vital Signs Date Time Temp Pulse Resp B/P Pulse Ox O2 Delivery O2 Flow Rate FiO2 02/21/17 08:19 60 02/21/17 07:36 97.8 18 117/67 97 02/21/17 02:49 4.0 02/21/17 00:30 40 02/21/17 00:16 Nasal Cannula Intake and Output 02/20/17 02/20/17 02/21/17 15:00 23:00 07:00 Intake Total 350 ml Balance 350 ml Exam Constitutional: No distress ENMT: mucosa pink and moist Respiratory: crackles/rales, No labored breathing Gastrointestinal: non-tender, soft Extremities: edema Results Result Diagram: 02/21/17 0655 02/21/17 0655 Results 24 hrs Laboratory Tests Test 02/20/17 12:03 02/20/17 17:18 02/20/17 20:32 02/21/17 01:12 Bedside Glucose 269 H 281 H 268 H 279 H Test 02/21/17 06:55 02/21/17 08:07 White Blood Count 7.2 # Red Blood Count 2.06 L Hemoglobin 6.2 *L Hematocrit 20.1 L Mean Corpuscular Volume 97.6 Mean Corpuscular Hemoglobin 30.1 Mean Corpuscular Hemoglobin Concent 30.8 L Red Cell Distribution Width 15.4 H Platelet Count 213 Mean Platelet Volume 9.6 Neutrophils % 69.0 Band Neutrophils % 7.0 H Lymphocytes % 16.0 Monocytes % 5.0 Eosinophils % Basophils % Metamyelocytes % 2.0 H Promyelocytes % 1.0 H Nucleated Red Blood Cells % Neutrophils # 5.0 Lymphocytes # 1.2 Monocytes # 0.4 Eosinophils # Basophils # Metamyelocytes # 0.1 Promyelocytes # 0.1 Nucleated Red Blood Cells # Differential Comment MANUAL DIFF Sodium Level 132 L Potassium Level 4.0 Chloride Level 101 Carbon Dioxide Level 27 Anion Gap 8 Blood Urea Nitrogen 66 #H Creatinine 4.52 #H Glucose Level 229 H Calcium Level 7.6 L Phosphorus Level 3.2 Magnesium Level 2.1 Bedside Glucose 206 Medications Medications Current Medications Ondansetron HCl (Zofran Inj) 4 mg Q6H PRN IV NAUSEA AND/OR VOMITING Last administered on 02/16/17 08:31; Admin Dose 4 MG; Start 02/15/17 at 09:30 Acetaminophen (Tylenol Tab) 650 mg Q6H PRN PO PAIN LEVEL 1-3 OR FEVER; Start at 09:30 Acetaminophen/ Hydrocodone Bitart ([place] (5/325)) 1 tab Q6H PRN PO PAIN LEVEL 4 -6 Last administered on 02/20/17 22:34; Admin Dose 1 TAB; Start 02/15/17 at 09: 30 Docusate Sodium (Colace) 100 mg Q12H PRN PO CONSTIPATION; Start 02/15/17 at 09: 30 Magnesium Hydroxide (Milk Of Mag) 30 ml DAILY PRN PO CONSTIPATION; Start at 09:30 Bisacodyl (Dulcolax Supp) 10 mg DAILY PRN [place] CONSTIPATION; Start 02/15/17 at 09 :30 Famotidine (Pepcid) 20 mg DAILY PO Last administered on 02/21/17 08:45; Admin Dose 20 MG; Start 02/15/17 at 10:00 Miscellaneous Information 1 ea NOTE XX ; Start 02/15/17 at 09:30 Glucose (Glutose) 15 gm Q15M PRN PO DECREASED GLUCOSE; Start 02/15/17 at 09:30 Glucose (Glutose) 22.5 gm Q15M PRN PO DECREASED GLUCOSE; Start 02/15/17 at 09: 30 Dextrose (D50w Syringe) 25 ml Q15M PRN IV DECREASED GLUCOSE; Start 02/15/17 at 09:30 Dextrose (D50w Syringe) 50 ml Q15M PRN IV DECREASED GLUCOSE; Start 02/15/17 at 09:30 Glucagon (Glucagen) 1 mg Q15M PRN IM DECREASED GLUCOSE; Start 02/15/17 at 09:30 Glucose (Glutose) 15 gm Q15M PRN BUCCAL DECREASED GLUCOSE; Start 02/15/17 at 09 :30 Amiodarone HCl (Cordarone) 200 mg DAILY PO Last administered on 02/21/17 08:46 ; Admin Dose 200 MG; Start 02/15/17 at 11:00 Lactobacillus Acidophilus/ Rhamnosus (Culturelle) 1 cap BID PO Last administered on 02/21/17 08:47; Admin Dose 1 CAP; Start 02/15/17 at 12:30 Allopurinol (Zyloprim) 100 mg DAILY PO Last administered on 02/21/17 08:46; Admin Dose 100 MG; Start 02/15/17 at 11:00 Finasteride (Proscar) 5 mg DAILY PO Last administered on 02/21/17 08:46; Admin Dose 5 MG; Start 02/15/17 at 11:00 Aspirin (Halfprin) 81 mg DAILY PO Last administered on 02/21/17 08:46; Admin Dose 81 MG; Start 02/15/17 at 11:00 Salmeterol Xinafoate/ Fluticasone (Advair 250/50 Diskus) 1 inh BID INH Last administered on 02/21/17 08:45; Admin Dose 1 INH; Start 02/16/17 at 09:30 Citalopram Hydrobromide (Celexa) 10 mg DAILY PO Last administered on 02/21/17 08:46; Admin Dose 10 MG; Start 02/17/17 at 09:00 Alprazolam (Xanax) 0.25 mg Q8H PRN PO ANXIETY Last administered on 02/21/17 05 :11; Admin Dose 0.25 MG; Start 02/16/17 at 12:00 Atorvastatin Calcium (Lipitor) 10 mg QHS PO Last administered on 02/20/17 20: 16; Admin Dose 10 MG; Start 02/16/17 at 21:00 Bumetanide (Bumex) 1 mg DAILY PO Last administered on 02/21/17 08:47; Admin Dose 1 MG; Start 02/16/17 at 12:00 Fenofibrate (Tricor) 48 mg DAILY PO Last administered on 02/21/17 08:47; Admin Dose 48 MG; Start 02/16/17 at 12:00 Lisinopril (Zestril) 20 mg DAILY PO Last administered on 02/20/17 08:45; Admin Dose 20 MG; Start 02/17/17 at 09:00 Multivit/Ca Carb/ B Cmplx/FA/Prenat (Alissa-Supriya) 1 tab DAILY PO Last administered on 02/21/17 08:47; Admin Dose 1 TAB; Start 02/16/17 at 12:00 Sodium Chloride (Deep Sea) 1 spray Q4 PRN NASAL NASAL CONGESTION; Start at 10:30 Metoprolol Tartrate (Lopressor) 25 mg BID PO Last administered on 02/20/17 20: 17; Admin Dose 25 MG; Start 02/17/17 at 21:00 Linagliptin 5 mg 5 mg DAILY PO Last administered on 02/21/17 08:47; Admin Dose 5 MG; Start 02/18/17 at 09:00 Piperacillin Sod/ Tazobactam Sod (Zosyn 2.25gm/ 50ml (Pmx)) 50 ml @ 100 mls/hr Q8 IVPB Last administered on 02/21/17 06:00; Admin Dose 100 MLS/HR; Start at 12:00 Insulin Glargine (Lantus) 15 unit DAILY@08 SC Last administered on 02/21/17 08 :44; Admin Dose 15 UNIT; Start 02/20/17 at 12:00 Epoetin Jamie (Epogen (Esrd)) 6,000 units MoWeFr@17 SC ; Start 02/21/17 at 17:00 Prednisone (Prednisone) 40 mg DAILY PO Last administered on 02/21/17 11:01; Admin Dose 40 MG; Start 02/21/17 at 10:30 MEHDI HENSON MD Feb 21, 2017 11:20
[2017-02-21 12:59] LABS: HEMATOCRIT 20.7 % (42.0-52.0)
[2017-02-21 13:04] LABS: HEMOGLOBIN 6.7 g/dl (14.0-18.0)
--- NOTE | 2017-02-21 15:03 | CONS ---
Date/Time of Note Date/Time of Note DATE: 02/21/17 TIME: 15:01 Consult Date/Type/Reason Admit Date/Time Feb 15, 2017 at 04:37 Initial Consult Date 02/18/17 Type of Consultation: pulmonary Ordering Provider: FARAZ NINO Subjective Patient appears comfortable this morning no new events Currently on nasal cannula off BiPAP Family at bedside Objective Vital Signs Date Time Temp Pulse Resp B/P Pulse Ox O2 Delivery O2 Flow Rate FiO2 02/21/17 12:09 73 02/21/17 12:06 97.3 20 128/61 97 02/21/17 02:49 4.0 02/21/17 00:30 40 02/21/17 00:16 Nasal Cannula Intake and Output 02/20/17 02/20/17 02/21/17 14:59 22:59 06:59 Intake Total 350 ml Balance 350 ml Exam GENERAL: Elderly gentleman appears comfortable at rest no acute distress VITAL SIGNS: per chart NECK: Supple. No JVD or lymphadenopathy. CARDIAC EXAM: S1, S2. No added sounds or murmurs. CHEST: clear bilaterally, No added sounds, rales or wheezes ABDOMEN: Soft, nontender. No guarding or rebound. EXTREMITIES: No cyanosis, clubbing or edema. NEUROLOGIC: Generalized weakness. No focal deficits. Results/Medications Result Diagram: 02/21/17 1220 02/21/17 0655 Results 24 hrs Laboratory Tests Test 02/20/17 17:18 02/20/17 20:32 02/21/17 01:12 02/21/17 06:55 Bedside Glucose 281 H 268 H 279 H White Blood Count 7.2 # Red Blood Count 2.06 L Hemoglobin 6.2 *L Hematocrit 20.1 L Mean Corpuscular Volume 97.6 Mean Corpuscular Hemoglobin 30.1 Mean Corpuscular Hemoglobin Concent 30.8 L Red Cell Distribution Width 15.4 H Platelet Count 213 Mean Platelet Volume 9.6 Neutrophils % 69.0 Band Neutrophils % 7.0 H Lymphocytes % 16.0 Monocytes % 5.0 Eosinophils % Basophils % Metamyelocytes % 2.0 H Promyelocytes % 1.0 H Nucleated Red Blood Cells % Neutrophils # 5.0 Lymphocytes # 1.2 Monocytes # 0.4 Eosinophils # Basophils # Metamyelocytes # 0.1 Promyelocytes # 0.1 Nucleated Red Blood Cells # Differential Comment MANUAL DIFF Sodium Level 132 L Potassium Level 4.0 Chloride Level 101 Carbon Dioxide Level 27 Anion Gap 8 Blood Urea Nitrogen 66 #H Creatinine 4.52 #H Glucose Level 229 H Calcium Level 7.6 L Phosphorus Level 3.2 Magnesium Level 2.1 Test 02/21/17 08:07 02/21/17 12:16 02/21/17 12:20 Bedside Glucose 206 273 H Hemoglobin 6.7 *L Hematocrit 20.7 L Medications Current Medications Ondansetron HCl (Zofran Inj) 4 mg Q6H PRN IV NAUSEA AND/OR VOMITING Last administered on 02/16/17 08:31; Admin Dose 4 MG; Start 02/15/17 at 09:30 Acetaminophen (Tylenol Tab) 650 mg Q6H PRN PO PAIN LEVEL 1-3 OR FEVER; Start at 09:30 Acetaminophen/ Hydrocodone Bitart ([place] (5/325)) 1 tab Q6H PRN PO PAIN LEVEL 4 -6 Last administered on 02/20/17 22:34; Admin Dose 1 TAB; Start 02/15/17 at 09: 30 Docusate Sodium (Colace) 100 mg Q12H PRN PO CONSTIPATION; Start 02/15/17 at 09: 30 Magnesium Hydroxide (Milk Of Mag) 30 ml DAILY PRN PO CONSTIPATION; Start at 09:30 Bisacodyl (Dulcolax Supp) 10 mg DAILY PRN [place] CONSTIPATION; Start 02/15/17 at 09 :30 Famotidine (Pepcid) 20 mg DAILY PO Last administered on 02/21/17 08:45; Admin Dose 20 MG; Start 02/15/17 at 10:00 Miscellaneous Information 1 ea NOTE XX ; Start 02/15/17 at 09:30 Glucose (Glutose) 15 gm Q15M PRN PO DECREASED GLUCOSE; Start 02/15/17 at 09:30 Glucose (Glutose) 22.5 gm Q15M PRN PO DECREASED GLUCOSE; Start 02/15/17 at 09: 30 Dextrose (D50w Syringe) 25 ml Q15M PRN IV DECREASED GLUCOSE; Start 02/15/17 at 09:30 Dextrose (D50w Syringe) 50 ml Q15M PRN IV DECREASED GLUCOSE; Start 02/15/17 at 09:30 Glucagon (Glucagen) 1 mg Q15M PRN IM DECREASED GLUCOSE; Start 02/15/17 at 09:30 Glucose (Glutose) 15 gm Q15M PRN BUCCAL DECREASED GLUCOSE; Start 02/15/17 at 09 :30 Amiodarone HCl (Cordarone) 200 mg DAILY PO Last administered on 02/21/17 08:46 ; Admin Dose 200 MG; Start 02/15/17 at 11:00 Lactobacillus Acidophilus/ Rhamnosus (Culturelle) 1 cap BID PO Last administered on 02/21/17 08:47; Admin Dose 1 CAP; Start 02/15/17 at 12:30 Allopurinol (Zyloprim) 100 mg DAILY PO Last administered on 02/21/17 08:46; Admin Dose 100 MG; Start 02/15/17 at 11:00 Finasteride (Proscar) 5 mg DAILY PO Last administered on 02/21/17 08:46; Admin Dose 5 MG; Start 02/15/17 at 11:00 Aspirin (Halfprin) 81 mg DAILY PO Last administered on 02/21/17 08:46; Admin Dose 81 MG; Start 02/15/17 at 11:00 Salmeterol Xinafoate/ Fluticasone (Advair 250/50 Diskus) 1 inh BID INH Last administered on 02/21/17 08:45; Admin Dose 1 INH; Start 02/16/17 at 09:30 Citalopram Hydrobromide (Celexa) 10 mg DAILY PO Last administered on 02/21/17 08:46; Admin Dose 10 MG; Start 02/17/17 at 09:00 Alprazolam (Xanax) 0.25 mg Q8H PRN PO ANXIETY Last administered on 02/21/17 05 :11; Admin Dose 0.25 MG; Start 02/16/17 at 12:00 Atorvastatin Calcium (Lipitor) 10 mg QHS PO Last administered on 02/20/17 20: 16; Admin Dose 10 MG; Start 02/16/17 at 21:00 Bumetanide (Bumex) 1 mg DAILY PO Last administered on 02/21/17 08:47; Admin Dose 1 MG; Start 02/16/17 at 12:00 Fenofibrate (Tricor) 48 mg DAILY PO Last administered on 02/21/17 08:47; Admin Dose 48 MG; Start 02/16/17 at 12:00 Lisinopril (Zestril) 20 mg DAILY PO Last administered on 02/20/17 08:45; Admin Dose 20 MG; Start 02/17/17 at 09:00 Multivit/Ca Carb/ B Cmplx/FA/Prenat (Alissa-Supriya) 1 tab DAILY PO Last administered on 02/21/17 08:47; Admin Dose 1 TAB; Start 02/16/17 at 12:00 Sodium Chloride (Deep Sea) 1 spray Q4 PRN NASAL NASAL CONGESTION; Start at 10:30 Metoprolol Tartrate (Lopressor) 25 mg BID PO Last administered on 02/20/17 20: 17; Admin Dose 25 MG; Start 02/17/17 at 21:00 Linagliptin 5 mg 5 mg DAILY PO Last administered on 02/21/17 08:47; Admin Dose 5 MG; Start 02/18/17 at 09:00 Piperacillin Sod/ Tazobactam Sod (Zosyn 2.25gm/ 50ml (Pmx)) 50 ml @ 100 mls/hr Q8 IVPB Last administered on 02/21/17 13:57; Admin Dose 100 MLS/HR; Start at 12:00 Insulin Glargine (Lantus) 15 unit DAILY@08 SC Last administered on 02/21/17 08 :44; Admin Dose 15 UNIT; Start 02/20/17 at 12:00 Epoetin Jamie (Epogen (Esrd)) 6,000 units MoWeFr@17 SC ; Start 02/21/17 at 17:00 Prednisone (Prednisone) 40 mg DAILY PO Last administered on 02/21/17 11:01; Admin Dose 40 MG; Start 02/21/17 at 10:30 Assessment/Plan Chief Complaint/Hosp Course Assessment 1. Hypoxemic respiratory failure secondary to volume overload 2. End-stage renal failure on hemodialysis 3. Severe anemia likely combination of possible GI bleed and chronic anemia from renal disease 4.? Mild dementia Plan 1. Transfusion packed red blood cells during hemodialysis 2. Volume removal with hemodialysis as tolerated 3. Would hold off on thoracentesis at present 4. Supplemental O2 as needed Disposition Agree with discharge planning back to nursing home facility Problems: LADY LYLE MD, [facility] Feb 21, 2017 15:02
[2017-02-21] MEDS ORDERED: EPOETIN 3000 UNITS/1 ML INJ (ESRD) SC SCH (17:00)
[2017-02-21] MEDS: ATORVASTATIN 10 MG TAB PO SCH (21:10)
[2017-02-22] VITALS (16 sets, daily range): BP systolic 101–158; BP diastolic 61–80; PULSE 65–78; RESP 19–20
[2017-02-22] MEDS: PIPER-TAZO 2.25 GM (PMX) 50 ML IVPB SCH ×2 (05:34→13:52)
[2017-02-22] MEDS: INSULIN ASPART [NOVOLOG] 3 ML PEN SC SCH ×4 (08:00→20:30)
[2017-02-22] MEDS: ALBUTEROL/IPRATROPIUM (NEB) 3 ML AMP HHN SCH ×2 (08:02→16:00)
[2017-02-22 08:14] LABS: ADD SCAN DIFF NO; BASOPHILS % 0.1 % (0.0-2.0); HEMATOCRIT 24.4 % (42.0-52.0); HEMOGLOBIN 7.9 g/dl (14.0-18.0); LYMPHOCYTES # 0.9 10^3/ul (0.8-2.9); LYMPHOCYTES % 11.1 % (15.0-51.0); MEAN CORPUSCULAR HEMOGLOBIN 30.9 pg (29.0-33.0); MEAN CORPUSCULAR HGB CONC 32.4 g/dl (32.0-37.0); MEAN CORPUSCULAR VOLUME 95.3 fl (82.0-101.0); MEAN PLATELET VOLUME 9.1 fl (7.4-10.4); MONOCYTES % 12.5 % (0.0-11.0); NEUTROPHIL # 5.6 10^3/ul (1.6-7.5); NEUTROPHILS % 71.6 % (39.0-77.0); NUCLEATED RED BLOOD CELLS% 0.3 /100WBC (0.0-0.0); PLATELET COUNT 212 10^3/UL (140-415); RED BLOOD COUNT 2.56 10^6/ul (4.70-6.10); RED CELL DISTRIBUTION WIDTH 16.3 % (11.5-14.5); WHITE BLOOD COUNT 7.9 10^3/ul (4.8-10.8)
[2017-02-22 08:36] LABS: POTASSIUM 3.3 mmol/L (3.5-5.1)
[2017-02-22] MEDS: INSULIN GLARGINE [LANtus] 3 ML PEN SC SCH (08:37)
[2017-02-22 08:39] LABS: CREATININE 3.67 mg/dl (0.61-1.24)
[2017-02-22 08:40] LABS: CALCIUM 8.2 mg/dl (8.4-10.2)
[2017-02-22] MEDS: SALMETEROL/FLUTICASONE 250/50 INHA INH SCH ×2 (09:59→20:33)
[2017-02-22] MEDS: predniSONE 20 MG TAB PO SCH (10:01)
[2017-02-22] MEDS: MULTIVIT/CA CARB/B CMPLX/FA TAB PO SCH (10:01)
[2017-02-22] MEDS: BUMETANIDE 1 MG TAB PO SCH (10:01)
[2017-02-22] MEDS: LINAGLIPTIN 5 MG TABLET PO SCH (10:02)
[2017-02-22] MEDS: LISINOPRIL 20 MG TAB PO SCH (10:02)
[2017-02-22] MEDS: LACTOBACILLUS RHAMNOSUS CAP PO SCH ×2 (10:02→20:33)
[2017-02-22] MEDS: CITALOPRAM 20 MG TAB PO SCH (10:03)
[2017-02-22] MEDS: FINASTERIDE 5 MG TAB PO SCH (10:03)
[2017-02-22] MEDS: ASPIRIN (EC) 81 MG TAB PO SCH (10:03)
[2017-02-22] MEDS: FAMOTIDINE 20 MG TAB PO SCH (10:03)
[2017-02-22] MEDS: AMIODARONE 200 MG TAB PO SCH (10:04)
[2017-02-22] MEDS: ALLOPURINOL 100 MG TAB PO SCH (10:04)
[2017-02-22] MEDS: METOPROLOL 25 MG TAB PO SCH ×2 (10:04→20:33)
[2017-02-22] MEDS: FENOFIBRATE 48 MG TAB PO SCH (10:06)
--- NOTE | 2017-02-22 10:30 | CONS ---
Date/Time of Note Date/Time of Note DATE: 02/22/17 TIME: 10:29 Assessment/Plan Assessment/Plan Additional Assessment/Plan Assessment and recommendations; next 1. Patient admitted with right-sided pneumonia with significant radiological improvement. 2. End-stage renal disease, on hemodialysis. 3. Hypertension. 4. Anemia. Continue current treatment. Consultation Date/Type/Reason Admit Date/Time Feb 15, 2017 at 04:37 Initial Consult Date 02/18/17 Type of Consultation: pulmonary Referring Provider: FARAZ NINO 24 HR Interval Summary Free Text/Dictation Patient condition is stable. Appears much more comfortable, denies any shortness of breath chest pain coughing. General exam; elderly male, awake currently in no distress. Exam/Review of Systems Vital Signs Vitals Vital Signs Date Time Temp Pulse Resp B/P Pulse Ox O2 Delivery O2 Flow Rate FiO2 02/22/17 08:07 4.0 02/22/17 08:07 75 18 95 Nasal Cannula 02/22/17 07:29 98.2 154/74 02/21/17 23:15 40 Intake and Output 02/21/17 02/21/17 02/22/17 15:00 23:00 07:00 Intake Total 500 ml 550 ml 400 ml Output Total 4000 ml Balance -3500 ml 550 ml 400 ml Exam HEENT exam is; supple neck, no JVD. No lymphadenopathy. Midline trachea. No thyromegaly. Pharynx is clear. Chest examination; minimally decreased breath sounds right lower lobe otherwise clear to auscultation. S1-S2 audible, no murmurs. Regular rhythm. Abdomen examination; soft, no organomegaly. Bowel sounds audible. Extremity examination; no peripheral edema. RESEARCH ASSISTANT PROFESSOR examination; patient is awake alert has no motor deficit. Results Result Diagram: 02/22/1729 02/22/17 0729 Results 24 hrs Laboratory Tests Test 02/21/17 12:16 02/21/17 12:20 02/21/17 17:23 02/21/17 21:07 Bedside Glucose 273 H 299 H 300 H Hemoglobin 6.7 *L Hematocrit 20.7 L Test 02/22/17 01:51 02/22/17 07:29 02/22/17 08:32 Bedside Glucose 269 H 129 White Blood Count 7.9 Red Blood Count 2.56 #L Hemoglobin 7.9 L Hematocrit 24.4 L Mean Corpuscular Volume 95.3 Mean Corpuscular Hemoglobin 30.9 Mean Corpuscular Hemoglobin Concent 32.4 Red Cell Distribution Width 16.3 H Platelet Count 212 Mean Platelet Volume 9.1 Neutrophils % 71.6 Lymphocytes % 11.1 L Monocytes % 12.5 H Eosinophils % 0.0 Basophils % 0.1 Nucleated Red Blood Cells % 0.3 H Neutrophils # 5.6 Lymphocytes # 0.9 Monocytes # 1.0 H Eosinophils # 0.0 Basophils # 0.0 Nucleated Red Blood Cells # 0.0 Sodium Level 139 Potassium Level 3.3 L Chloride Level 102 Carbon Dioxide Level 27 Anion Gap 13 Blood Urea Nitrogen 51 H Creatinine 3.67 H Glucose Level 141 # Calcium Level 8.2 L Phosphorus Level 4.0 Magnesium Level 2.0 Medications Medications Current Medications Ondansetron HCl (Zofran Inj) 4 mg Q6H PRN IV NAUSEA AND/OR VOMITING Last administered on 02/16/17 08:31; Admin Dose 4 MG; Start 02/15/17 at 09:30 Acetaminophen (Tylenol Tab) 650 mg Q6H PRN PO PAIN LEVEL 1-3 OR FEVER; Start at 09:30 Acetaminophen/ Hydrocodone Bitart ([place] (5/325)) 1 tab Q6H PRN PO PAIN LEVEL 4 -6 Last administered on 02/20/17 22:34; Admin Dose 1 TAB; Start 02/15/17 at 09: 30 Docusate Sodium (Colace) 100 mg Q12H PRN PO CONSTIPATION; Start 02/15/17 at 09: 30 Magnesium Hydroxide (Milk Of Mag) 30 ml DAILY PRN PO CONSTIPATION; Start at 09:30 Bisacodyl (Dulcolax Supp) 10 mg DAILY PRN [place] CONSTIPATION; Start 02/15/17 at 09 :30 Famotidine (Pepcid) 20 mg DAILY PO Last administered on 02/22/17 10:03; Admin Dose 20 MG; Start 02/15/17 at 10:00 Miscellaneous Information 1 ea NOTE XX ; Start 02/15/17 at 09:30 Glucose (Glutose) 15 gm Q15M PRN PO DECREASED GLUCOSE; Start 02/15/17 at 09:30 Glucose (Glutose) 22.5 gm Q15M PRN PO DECREASED GLUCOSE; Start 02/15/17 at 09: 30 Dextrose (D50w Syringe) 25 ml Q15M PRN IV DECREASED GLUCOSE; Start 02/15/17 at 09:30 Dextrose (D50w Syringe) 50 ml Q15M PRN IV DECREASED GLUCOSE; Start 02/15/17 at 09:30 Glucagon (Glucagen) 1 mg Q15M PRN IM DECREASED GLUCOSE; Start 02/15/17 at 09:30 Glucose (Glutose) 15 gm Q15M PRN BUCCAL DECREASED GLUCOSE; Start 02/15/17 at 09 :30 Amiodarone HCl (Cordarone) 200 mg DAILY PO Last administered on 02/22/17 10:04 ; Admin Dose 200 MG; Start 02/15/17 at 11:00 Lactobacillus Acidophilus/ Rhamnosus (Culturelle) 1 cap BID PO Last administered on 02/22/17 10:02; Admin Dose 1 CAP; Start 02/15/17 at 12:30 Allopurinol (Zyloprim) 100 mg DAILY PO Last administered on 02/22/17 10:04; Admin Dose 100 MG; Start 02/15/17 at 11:00 Finasteride (Proscar) 5 mg DAILY PO Last administered on 02/22/17 10:03; Admin Dose 5 MG; Start 02/15/17 at 11:00 Aspirin (Halfprin) 81 mg DAILY PO Last administered on 02/22/17 10:03; Admin Dose 81 MG; Start 02/15/17 at 11:00 Salmeterol Xinafoate/ Fluticasone (Advair 250/50 Diskus) 1 inh BID INH Last administered on 02/22/17 09:59; Admin Dose 1 INH; Start 02/16/17 at 09:30 Citalopram Hydrobromide (Celexa) 10 mg DAILY PO Last administered on 02/22/17 10:03; Admin Dose 10 MG; Start 02/17/17 at 09:00 Alprazolam (Xanax) 0.25 mg Q8H PRN PO ANXIETY Last administered on 02/21/17 21 :10; Admin Dose 0.25 MG; Start 02/16/17 at 12:00 Atorvastatin Calcium (Lipitor) 10 mg QHS PO Last administered on 02/21/17 21: 10; Admin Dose 10 MG; Start 02/16/17 at 21:00 Bumetanide (Bumex) 1 mg DAILY PO Last administered on 02/22/17 10:01; Admin Dose 1 MG; Start 02/16/17 at 12:00 Fenofibrate (Tricor) 48 mg DAILY PO Last administered on 02/22/17 10:06; Admin Dose 48 MG; Start 02/16/17 at 12:00 Lisinopril (Zestril) 20 mg DAILY PO Last administered on 02/22/17 10:02; Admin Dose 20 MG; Start 02/17/17 at 09:00 Multivit/Ca Carb/ B Cmplx/FA/Prenat (Alissa-Supriya) 1 tab DAILY PO Last administered on 02/22/17 10:01; Admin Dose 1 TAB; Start 02/16/17 at 12:00 Sodium Chloride (Deep Sea) 1 spray Q4 PRN NASAL NASAL CONGESTION; Start at 10:30 Metoprolol Tartrate (Lopressor) 25 mg BID PO Last administered on 02/22/17 10: 04; Admin Dose 25 MG; Start 02/17/17 at 21:00 Linagliptin 5 mg 5 mg DAILY PO Last administered on 02/22/17 10:02; Admin Dose 5 MG; Start 02/18/17 at 09:00 Piperacillin Sod/ Tazobactam Sod (Zosyn 2.25gm/ 50ml (Pmx)) 50 ml @ 100 mls/hr Q8 IVPB Last administered on 02/22/17 05:34; Admin Dose 100 MLS/HR; Start at 12:00 Insulin Glargine (Lantus) 15 unit DAILY@08 SC Last administered on 02/22/17 08 :37; Admin Dose 15 UNIT; Start 02/20/17 at 12:00 Epoetin Jamie (Epogen (Esrd)) 6,000 units MoWeFr@17 SC Last administered on 02/21 17:33; Admin Dose 6,000 UNITS; Start 02/21/17 at 17:00 Prednisone (Prednisone) 40 mg DAILY PO Last administered on 02/22/17 10:01; Admin Dose 40 MG; Start 02/21/17 at 10:30 SAMY FRANK Feb 22, 2017 10:30
--- NOTE | 2017-02-22 16:53 | CONS ---
DATE OF ADMISSION: 02/15/2017 DATE OF CONSULTATION: 02/22/2017 Patient is being transferred to [facility] for ongoing physical therapy. DISCHARGE DIAGNOSES: 1. Acute hypercapnia and chronic respiratory failure with hypoxemia: Improved. Continue Zosyn intravenously for 7 more days. Also continue oxygen to keep O2 saturation above 90%. 2. Chronic obstructive pulmonary disease: Stable. Oxygen dependent. Continue nebulizer treatment with Advair and steroid taper as well as BiPAP at night. The patient underwent thoracentesis on the right side. 3. Atrial fibrillation with rapid ventricular response, stable. The patient reverted back to sinus rhythm after a dose of Toprol and we will continue his amiodarone. His ejection fraction is 60% by 2D echo. 4. End-stage renal disease on hemodialysis, stable. The patient underwent hemodialysis during his hospitalization and received blood transfusion as well. He has a Perm-A-Cath in place while he is on Bumex and he continues to make urine. Dr. Solares is following. 5. Hypoglycemic episode, likely secondary to overmedication. His hemoglobin A1c is 7.3. His medications have been adjusted and this will be monitored at the [facility] facility. 6. Hypertension. Stable. Continue his metoprolol and lisinopril. 7. Hyperlipidemia: Stable. Will put him on Lisinopril 10 mg once daily. 8. Diabetic neuropathy: Stable. Continue his Neurontin 200 mg twice daily. 9. Major depressive disorder: Stable. Continue Celexa and Xanax as needed. 10. Chronic anemia: Improving. His hemoglobin was less than 7.5 and he received 2 units PRBCs. He will receive Epogen and with hemodialysis. HOSPITAL COURSE: The patient is a very pleasant, Czech speaking 71-year-old male who was recently discharged from [facility]. He went to the [facility] facility thereafter. Apparently he became acutely short of breath and his blood sugar was found to be 30. He presented to the emergency department for further evaluation and treatment. The patient was also found to be in atrial fibrillation RVR. He was given metoprolol, was started on amiodarone and he converted to sinus rhythm. His Lantus and glimepiride were held. His blood sugars reverted to a safe place. He has extensive bilateral pneumonia, was started on Zosyn. He did improve throughout his hospitalization and he also received a right-sided thoracentesis. Overall, the patient improved significantly and at the time of transfer, he was saturating between 92 and 95% on 4 liters of nasal cannula and he was comfortable. This was back to his current baseline state. I assumed care of the patient on the day of discharge and prior to that, my associate, Dr. Pacheco and other covering physicians were caring for him. Overall , the patient did well; however, he was quite debilitated throughout his hospitalization. For this reason, he will be transferring to [facility] for ongoing physical therapy and occupational therapy as well as Zosyn 2.25 mg IV q.8h for 7 additional days. This was explained to the patient with the nurse environment artist at the bedside. All questions were answered to their satisfaction. CONDITION ON TRANSFER: Stable. DISPOSITION: Transfer to [facility]. MEDICATIONS ON TRANSFER: 1. Tylenol 650 mg p.o. q.6h. p.r.n. temperature greater than 101 or headache. 2. DuoNeb every 8 hours by hand-held nebulizer. 3. Allopurinol 100 mg p.o. daily. 4. Xanax 0.5 mg p.o. q.8 hours p.r.n. anxiety. 5. Amiodarone 200 mg once daily. 6. Aspirin 81 mg once daily. 7. Atorvastatin 10 mg p.o. at bedtime. 8. Bisacodyl suppository 10 mg as needed daily. 9. Bumex 1 mg once daily. 10. Celexa 20 mg once daily. 11. Erythropoietin 6000 units subcutaneously with each hemodialysis session which is Friday, Friday and Friday. 12. Pepcid 20 mg once daily. 13. Tricor 48 mg once daily. 14. Proscar 5 mg once daily. 15. Insulin sliding scale. 16. [place] 5/325 one tablet 6 hours p.r.n. pain. 17. Lantus 15 units subcutaneously every morning. 18. Lactobacillus 1 capsule twice daily. 19. Tradjenta 5 mg once daily. 20. Lisinopril 20 mg once daily. 21. Magnesium hydroxide 30 mL q.8. p.r.n. constipation. 22. Metoprolol 25 mg twice daily. 23. Alissa-Supriya one tablet once daily. 24. Zofran 4 mg p.o. every 6 hours p.r.n. nausea. 25. Zosyn 2.25 mg IV q.8h. 26. Prednisone 40 mg p.o. daily for 4 days, then 30 mg p.o. daily for the next 5 days, then 20 mg p.o. every day for the next 5 days and the patient will be reassessed by the [facility] facility physician. 27. Advair 250/50 Diskus one puff twice daily. 28. Gabapentin 800 mg twice daily. DISPOSITION: Transfer to SNF. Of note, the patient did receive hemodialysis on the day prior to discharge and his hemoglobin was 7.9 prior to discharge; however, he will receive 1 unit additional PRBC as his hemoglobin level was slightly low and then safely transfer to SNF. Dictated By: ANTONIA LOYA/KENRICK Conf#: [id number] DID#: [id number] MTDD
[2017-02-22] MEDS: ALPRAZOLAM 0.25 MG TAB PO PRN ×2 (16:57→22:20)
--- NOTE | 2017-02-22 19:36 | RADRPT ---
PROCEDURE: XR Chest. CLINICAL INDICATION: Shortness of breath. TECHNIQUE: Single frontal view. COMPARISON: 02/18/2017. FINDINGS: The right internal jugular vein tunneled dialysis catheter is in satisfactory position. The heart is enlarged. Pulmonary edema is slightly improved. The lungs are otherwise clear. There are small to moderate bilateral pleural effusions. There is no pneumothorax. IMPRESSION: 1. Slightly improved pulmonary edema. 2. No other change from 02/18/2017. RPTAT: QQ .Spike Burns MD, MD Date Time Electronically viewed and signed by .Spike Burns MD, MD on 02/22/2017 19:36 .R/
[2017-02-22] MEDS: ATORVASTATIN 10 MG TAB PO SCH (20:33)
--- NOTE | 2017-02-22 22:35 | CONS ---
Date/Time of Note Date/Time of Note DATE: 02/22/17 TIME: 22:29 Assessment/Plan Assessment/Plan Chief Complaint/Hosp Course rpt CXR -> improved chxr HD idone already )K to dc BS, Hbg should be stable Problems: Additional Assessment/Plan Discussed with PCP, Hbg running low Pt to be transfued w additional HD Furthe plans including dc per PMD Consultation Date/Type/Reason Admit Date/Time Feb 15, 2017 at 04:37 Type of Consultation: renal Referring Provider: FARAZ NINO 24 HR Interval Summary Free Text/Dictation at bedside Subjective hx not possible: pt non-verbal Exam/Review of Systems Vital Signs Vitals Vital Signs Date Time Temp Pulse Resp B/P Pulse Ox O2 Delivery O2 Flow Rate FiO2 02/22/17 20:47 98.8 72 20 158/72 98 02/22/17 08:07 4.0 02/22/17 08:07 Nasal Cannula 02/21/17 23:15 40 Intake and Output 02/21/17 02/21/17 02/22/17 14:59 22:59 06:59 Intake Total 500 ml 550 ml 400 ml Output Total 4000 ml Balance -3500 ml 550 ml 400 ml Exam Constitutional: alert, oriented, well developed Psych: nl mood/affect, no complaints Head: atraumatic, normocephalic Eyes: EOMI, PERRL, nl conjunctiva, nl lids, nl sclera ENMT: nl external ears & nose, nl lips & teeth, nl nasal mucosa & septum Neck: non-tender, supple Respiratory: clear to auscultation, normal air movement, other (copd) Cardiovascular: nl pulses, regular rate and rhythm Gastrointestinal: nl liver, spleen, non-tender, soft Musculoskeletal: nl extremities to inspection, nl gait and stance Extremities: normal pulses Neurological: MILLER DISTILLERY II-XII intact, nl mental status, nl speech, nl strength, other (pt remains confined to bed) Skin: nl turgor, No rash or lesions Lymph: nl lymph nodes Results Result Diagram: 02/22/17 0729 02/22/17 0729 Results 24 hrs Laboratory Tests Test 02/22/17 01:51 02/22/17 07:29 02/22/17 08:32 02/22/17 12:05 Bedside Glucose 269 H 129 161 White Blood Count 7.9 Red Blood Count 2.56 #L Hemoglobin 7.9 L Hematocrit 24.4 L Mean Corpuscular Volume 95.3 Mean Corpuscular Hemoglobin 30.9 Mean Corpuscular Hemoglobin Concent 32.4 Red Cell Distribution Width 16.3 H Platelet Count 212 Mean Platelet Volume 9.1 Neutrophils % 71.6 Lymphocytes % 11.1 L Monocytes % 12.5 H Eosinophils % 0.0 Basophils % 0.1 Nucleated Red Blood Cells % 0.3 H Neutrophils # 5.6 Lymphocytes # 0.9 Monocytes # 1.0 H Eosinophils # 0.0 Basophils # 0.0 Nucleated Red Blood Cells # 0.0 Sodium Level 139 Potassium Level 3.3 L Chloride Level 102 Carbon Dioxide Level 27 Anion Gap 13 Blood Urea Nitrogen 51 H Creatinine 3.67 H Glucose Level 141 # Calcium Level 8.2 L Phosphorus Level 4.0 Magnesium Level 2.0 Test 02/22/17 17:23 02/22/17 20:25 Bedside Glucose 204 268 H Medications Medications Current Medications Ondansetron HCl (Zofran Inj) 4 mg Q6H PRN IV NAUSEA AND/OR VOMITING Last administered on 02/16/17 08:31; Admin Dose 4 MG; Start 02/15/17 at 09:30 Acetaminophen (Tylenol Tab) 650 mg Q6H PRN PO PAIN LEVEL 1-3 OR FEVER Last administered on 02/22/17 20:35; Admin Dose 650 MG; Start 02/15/17 at 09:30 Acetaminophen/ Hydrocodone Bitart ([place] (5/325)) 1 tab Q6H PRN PO PAIN LEVEL 4 -6 Last administered on 02/20/17 22:34; Admin Dose 1 TAB; Start 02/15/17 at 09: 30 Docusate Sodium (Colace) 100 mg Q12H PRN PO CONSTIPATION; Start 02/15/17 at 09: 30 Magnesium Hydroxide (Milk Of Mag) 30 ml DAILY PRN PO CONSTIPATION; Start at 09:30 Bisacodyl (Dulcolax Supp) 10 mg DAILY PRN NM CONSTIPATION; Start 02/15/17 at 09 :30 Famotidine (Pepcid) 20 mg DAILY PO Last administered on 02/22/17 10:03; Admin Dose 20 MG; Start 02/15/17 at 10:00 Miscellaneous Information 1 ea NOTE XX ; Start 02/15/17 at 09:30 Glucose (Glutose) 15 gm Q15M PRN PO DECREASED GLUCOSE; Start 02/15/17 at 09:30 Glucose (Glutose) 22.5 gm Q15M PRN PO DECREASED GLUCOSE; Start 02/15/17 at 09: 30 Dextrose (D50w Syringe) 25 ml Q15M PRN IV DECREASED GLUCOSE; Start 02/15/17 at 09:30 Dextrose (D50w Syringe) 50 ml Q15M PRN IV DECREASED GLUCOSE; Start 02/15/17 at 09:30 Glucagon (Glucagen) 1 mg Q15M PRN IM DECREASED GLUCOSE; Start 02/15/17 at 09:30 Glucose (Glutose) 15 gm Q15M PRN BUCCAL DECREASED GLUCOSE; Start 02/15/17 at 09 :30 Amiodarone HCl (Cordarone) 200 mg DAILY PO Last administered on 02/22/17 10:04 ; Admin Dose 200 MG; Start 02/15/17 at 11:00 Lactobacillus Acidophilus/ Rhamnosus (Culturelle) 1 cap BID PO Last administered on 02/22/17 20:33; Admin Dose 1 CAP; Start 02/15/17 at 12:30 Allopurinol (Zyloprim) 100 mg DAILY PO Last administered on 02/22/17 10:04; Admin Dose 100 MG; Start 02/15/17 at 11:00 Finasteride (Proscar) 5 mg DAILY PO Last administered on 02/22/17 10:03; Admin Dose 5 MG; Start 02/15/17 at 11:00 Aspirin (Halfprin) 81 mg DAILY PO Last administered on 02/22/17 10:03; Admin Dose 81 MG; Start 02/15/17 at 11:00 Salmeterol Xinafoate/ Fluticasone (Advair 250/50 Diskus) 1 inh BID INH Last administered on 02/22/17 20:33; Admin Dose 1 INH; Start 02/16/17 at 09:30 Citalopram Hydrobromide (Celexa) 10 mg DAILY PO Last administered on 02/22/17 10:03; Admin Dose 10 MG; Start 02/17/17 at 09:00 Alprazolam (Xanax) 0.25 mg Q8H PRN PO ANXIETY Last administered on 02/22/17 22 :20; Admin Dose 0.25 MG; Start 02/16/17 at 12:00 Atorvastatin Calcium (Lipitor) 10 mg QHS PO Last administered on 02/22/17 20: 33; Admin Dose 10 MG; Start 02/16/17 at 21:00 Bumetanide (Bumex) 1 mg DAILY PO Last administered on 02/22/17 10:01; Admin Dose 1 MG; Start 02/16/17 at 12:00 Fenofibrate (Tricor) 48 mg DAILY PO Last administered on 02/22/17 10:06; Admin Dose 48 MG; Start 02/16/17 at 12:00 Lisinopril (Zestril) 20 mg DAILY PO Last administered on 02/22/17 10:02; Admin Dose 20 MG; Start 02/17/17 at 09:00 Multivit/Ca Carb/ B Cmplx/FA/Prenat (Alissa-Supriya) 1 tab DAILY PO Last administered on 02/22/17 10:01; Admin Dose 1 TAB; Start 02/16/17 at 12:00 Sodium Chloride ([place]) 1 spray Q4 PRN NASAL NASAL CONGESTION; Start at 10:30 Metoprolol Tartrate (Lopressor) 25 mg BID PO Last administered on 02/22/17 20: 33; Admin Dose 25 MG; Start 02/17/17 at 21:00 Linagliptin 5 mg 5 mg DAILY PO Last administered on 02/22/17 10:02; Admin Dose 5 MG; Start 02/18/17 at 09:00 Piperacillin Sod/ Tazobactam Sod (Zosyn 2.25gm/ 50ml (Pmx)) 50 ml @ 100 mls/hr Q8 IVPB Last administered on 02/22/17 13:52; Admin Dose 100 MLS/HR; Start at 12:00 Insulin Glargine (Lantus) 15 unit DAILY@08 SC Last administered on 02/22/17 08 :37; Admin Dose 15 UNIT; Start 02/20/17 at 12:00 Epoetin Jamie (Epogen (Esrd)) 6,000 units MoWeFr@17 SC Last administered on 02/21 17:33; Admin Dose 6,000 UNITS; Start 02/21/17 at 17:00 Prednisone (Prednisone) 40 mg DAILY PO Last administered on 02/22/17t 10:01; Admin Dose 40 MG; Start 02/21/17 at 10:30 CHRISTIANE PARSON MD Feb 22, 2017 22:35
== END 2017-02-22 22:40 | DRG 186 ==
LOC: E/R 00:38 → MS4 04:37
PROVIDERS: ADMIT Internal Medicine; ATTEND Internal Medicine
PROC: 5A1D60Z (ICD-10-PCS; 2017-02-15)
PROC: 0W993ZZ Drainage of Right Pleural Cavity, Percutaneous Approach (ICD-10-PCS; principal; 2017-02-16)
PROC: 30233N1 Transfusion of Nonautologous Red Blood Cells into Peripheral Vein, Percutaneous Approach (ICD-10-PCS; 2017-02-21)
DX: J90 Pleural effusion, not elsewhere classified (principal); J96.22 Acute and chronic respiratory failure with hypercapnia; J96.21 Acute and chronic respiratory failure with hypoxia; J18.9 Pneumonia, unspecified organism; E46 Unspecified protein-calorie malnutrition; N18.6 End stage renal disease; I12.0 Hypertensive chronic kidney disease with stage 5 chronic kidney disease or end stage renal disease; E11.22 Type 2 diabetes mellitus with diabetic chronic kidney disease; I48.91 Unspecified atrial fibrillation; J44.1 Chronic obstructive pulmonary disease with (acute) exacerbation; J98.11 Atelectasis; E87.70 Fluid overload, unspecified; E11.40 Type 2 diabetes mellitus with diabetic neuropathy, unspecified; E11.649 Type 2 diabetes mellitus with hypoglycemia without coma; T38.3X5A Adverse effect of insulin and oral hypoglycemic [antidiabetic] drugs, initial encounter; Z99.81 Dependence on supplemental oxygen; E78.5 Hyperlipidemia, unspecified; F32.9 Major depressive disorder, single episode, unspecified; F41.9 Anxiety disorder, unspecified; D63.8 Anemia in other chronic diseases classified elsewhere; K76.9 Liver disease, unspecified; N40.0 Benign prostatic hyperplasia without lower urinary tract symptoms; Z99.2 Dependence on renal dialysis; Z79.82 Long term (current) use of aspirin; Z79.4 Long term (current) use of insulin; Z87.891 Personal history of nicotine dependence
CPT/HCPCS: 36430; 36600; 71010; 71250; 76942; 80048; 80053; 82550; 82553; 82803; 82945; 82962; 83036; 83615; 83735; 83880; 83986; 84100; 84157; 84439; 84443; 84484; 85014; 85018; 85025; 85610; 85730; 86850; 86900; 86901; 86920; 87070; 87102; 87116; 88104; 88305; 89050; 90935; 93005; 93306; 94640; 94660; 94664; 96374; 96375; 97110; 97163; J0886; J1644; J1815; J2405; J2543; J2920; J2930; J3370; J7040; J7050; J7512; P9016